=== PATIENT | female | born 1955 | race Hispanic/Latino ===

== ENCOUNTER 2018-09-01 10:22 | Emergency (ER) | payer OTHER, MEDICAID ==
[2018-09-01 10:55] LABS: Absolute Lymphocytes (CBC) 1.7 K/uL (0.7-4.9); Absolute Monocytes 0.6 K/uL (0.1-1.3); Absolute Neutrophil 6.5 K/uL (1.8-8.0); Basophils % 0.5 % (0-1.3); Eosinophils % 0.6 % (0-4.4); Hematocrit 29.7 % (36.0-45.0); Lymphocytes % 18.6 % (15.3-44.8); MCH 29.7 pg (27.0-35.0); MCV 86.9 fL (80-100); MPV 6.5 fL (7.6-11.3); Monocytes % 6.7 % (3.3-12.3); RBC Red Blood Cell Count 3.42 M/uL (3.86-4.86)
[2018-09-01] MEDS ORDERED: NA CHLORIDE 0.9% 500 ML ONE (11:01)
[2018-09-01 11:23] LABS: Potassium 4.5 mmol/L (3.5-5.1)
[2018-09-01] MEDS ORDERED: INSULIN -REGULAR HUMAN 50 UNIT/0.5 ML ML ONE ×2 (12:07→12:09)
--- NOTE | 2018-09-01 13:25 | EKG ---
Test Date: 2018-09-01 Test Time: 10:42:13 Plating Tank Operator: ELSY MEASUREMENT RESULTS: Intervals: Rate: 91 IN: 156 QRSD: 90 QT: 354 QTc: 435 [place]: P: 64 IN: 156 QRS: 44 T: 62 INTERPRETIVE STATEMENTS: Normal sinus rhythm Normal ECG Compared to ECG 06/06/2015 15:11:56 No significant changes Electronically Signed On 09-01-18 13:25:40 CDT by Prosper Toney
--- NOTE | 2018-09-01 13:35 | ER ---
Nurse's Notes [facility] Name: Sola Mahoney Age: 63 yrs Sex: Female : 1955 Arrival Date: 09/01/2018 Time: 10:23 Bed 2 Private MD: Diagnosis: Dehydration;Hyperglycemia, unspecified Presentation: 09/01 10:23 Presenting complaint: EMS states: TROUBLE MANAGING BLOOD SUGAR. Transition of care: bp patient was not received from another setting of care. Onset of symptoms is unknown. Risk Assessment: Do you want to hurt yourself or someone else? Patient reports no desire to harm self or others. Initial Sepsis Screen: Does the patient meet any 2 criteria? No. Patient's initial sepsis screen is negative. Does the patient have a suspected source of infection? No. Patient's initial sepsis screen is negative. Care prior to arrival: IV initiated. 20 GA, in the left hand, Glucose check: 491. 10:23 Method Of Arrival: EMS: [facility] bp 10:23 Acuity: ULICES 3 bp Triage Assessment: 10:27 General: Appears in no apparent distress. comfortable, obese, Behavior is cooperative, bp appropriate for age, anxious. Pain: Denies pain. Historical: - Allergies: 10:27 Demerol; bp 10:27 Benadryl; bp 10:27 Darvocet-N 100; bp - Home Meds: 10:27 Glimepiride Oral [Active]; insulin detemir subcutaneous subcutaneous [Active]; bp pravastatin oral oral [Active]; - PMHx: 10:27 Diabetes - IDDM; High Cholesterol; bp - Immunization history:: Adult Immunizations up to date. - Social history:: Smoking status: Patient/guardian denies using tobacco. - Ebola Screening: : Patient negative for fever greater than or equal to 101.5 degrees Fahrenheit, and additional compatible Ebola Virus Disease symptoms Patient denies exposure to infectious person Patient denies travel to an Ebola-affected area in the 21 days before illness onset No symptoms or risks identified at this time. - Family history:: not pertinent. - Hospitalizations: : No recent hospitalization is reported. Screenin:28 Abuse screen: Denies threats or abuse. Denies injuries from another. Nutritional bp screening: No deficits noted. Tuberculosis screening: No symptoms or risk factors identified. Fall Risk None identified. Assessment: 10:28 General: Appears in no apparent distress. comfortable, obese, Behavior is cooperative, bp appropriate for age, anxious. General: Reports fatigue for >3 days. Pain: Denies pain. Neuro: Level of Consciousness is awake, alert, obeys commands, Oriented to person, place, time, situation, Appropriate for age. Cardiovascular: No deficits noted. Respiratory: Airway is patent Respiratory effort is even, unlabored, Respiratory pattern is regular, symmetrical. GI: No signs and/or symptoms were reported involving the gastrointestinal system. : No signs and/or symptoms were reported regarding the genitourinary system. EENT: No deficits noted. Derm: No deficits noted. Musculoskeletal: Circulation, motion, and sensation intact. Range of motion: intact in all extremities, limited in all extremities. 11:07 Reassessment: IVF INFUSING, PT ASYMPTOMATIC. bp 13:00 Reassessment: PT RESTING QUIETLY, VS STABLE ON MONITOR, PT ABLE TO AMBULATE TO RESTROOM.bp 13:53 Reassessment: PT D/C HOME VIA W/C WITH FAMILY, DX WITH HYPERGLYCEMIA. bp Vital Signs: 10:27 BP 98 / 43; Pulse 95; Resp 16; Temp 98; Pulse Ox 97% ; Weight 86.18 kg; Height 5 ft. 3 bp in. (160.02 cm); 10:41 BP 133 / 68; Pulse 91; Resp 16; Pulse Ox 95% ; bp 11:08 BP 142 / 77; Pulse 87; Resp 16; Pulse Ox 96% ; bp 12:15 BP 129 / 69; Pulse 87; Resp 14; Pulse Ox 97% ; bp 13:15 BP 151 / 88; Pulse 85; Resp 16; Pulse Ox 98% ; bp 10:27 Body Mass Index 33.66 (86.18 kg, 160.02 cm) bp ED Course: 10:23 Patient arrived in ED. bp 10:23 Irineo Trejo MD is Attending Physician. rn 10:24 Triage completed. bp 10:27 Arm band placed on. bp 10:28 Patient has correct armband on for positive identification. Placed in gown. Bed in low bp position. Call light in reach. Side rails up X2. 10:28 Maintain EMS IV. Dressing intact. Good blood return noted. Site clean \T\ dry. Gauge \T\ bp site: 20 GAUGE R AC. 10:32 Jonnie Razo, RN is Primary Nurse. bp 10:45 EKG done, by polysomnography technologist. reviewed by Irineo Trejo MD. at1 13:52 No provider procedures requiring assistance completed. IV discontinued, intact, bp bleeding controlled, No redness/swelling at site. Pressure dressing applied. Administered Medications: 10:45 Drug: NS 0.9% 500 ml Route: IV; Rate: bolus; Site: left hand; bp 13:54 Follow up: IV Status: Completed infusion; IV Intake: 500ml bp 11:45 Drug: Insulin Regular Human 10 units {Co-Signature: ph (Mare Kramer RN).} Route: bp Sub-Q; Site: left upper arm; 13:54 Follow up: Response: Blood sugar is lowered bp Point of Care Testing: Blood Glucose: 10:41 Blood Glucose: 463 mg/dL; bp 12:46 Blood Glucose: 348 mg/dL; bp Ranges: Intake: 13:54 IV: 500ml; Total: 500ml. bp Outcome: 13:34 Discharge ordered by MD. rn 13:53 Discharged to home via wheelchair, with family. bp 13:53 Condition: stable 13:53 Discharge instructions given to patient, Instructed on discharge instructions, follow up and referral plans. Demonstrated understanding of instructions, follow-up care. 13:54 Patient left the ED. bp Signatures: Irineo Trejo MD MD rn Earline Clemons, attorney general EKG Tat1 Jonnie Razo, RN RN bp Mare Kramer RN ph
--- NOTE | 2018-09-01 13:35 | EDPHYS ---
Physician Documentation [facility] Name: Sola Mahoney Age: 63 yrs Sex: Female : 1955 Arrival Date: 09/01/2018 Time: 10:23 Bed 2 Private MD: ED Physician Irineo Trejo HPI: 09/01 10:57 This 63 yrs old Female presents to ER via EMS with complaints of DIABETES rn MANAGEMENT. 10:57 The patient or guardian reports hyperglycemia. Onset: The symptoms/episode rn began/occurred today. Current symptoms: In the emergency department the patient's symptoms have improved. The patient has experienced similar episodes in the past. Reports seen recently a few times for low blood sugar, today home health went by, checked her blood sugar, was high, called 911 for evaluation. Patient denies symptoms other than mild fatigue and lightheaded. NO increased thirst or urination. Reports had just eaten sweet bread and orange juice, otherwise denies chest pain/abd pain/vomiting/diarrhea. Historical: - Allergies: 10:27 Demerol; bp 10:27 Benadryl; bp 10:27 Darvocet-N 100; bp - Home Meds: 10:27 Glimepiride Oral [Active]; insulin detemir subcutaneous subcutaneous [Active]; bp pravastatin oral oral [Active]; - PMHx: 10:27 Diabetes - IDDM; High Cholesterol; bp - Immunization history:: Adult Immunizations up to date. - Social history:: Smoking status: Patient/guardian denies using tobacco. - Ebola Screening: : Patient negative for fever greater than or equal to 101.5 degrees Fahrenheit, and additional compatible Ebola Virus Disease symptoms Patient denies exposure to infectious person Patient denies travel to an Ebola-affected area in the 21 days before illness onset No symptoms or risks identified at this time. - Family history:: not pertinent. - Hospitalizations: : No recent hospitalization is reported. ROS: 10:57 Constitutional: Negative for fever, chills, and weight loss, Eyes: Negative for injury, rn pain, redness, and discharge, Neck: Negative for injury, pain, and swelling, Cardiovascular: Negative for chest pain, palpitations, and edema, Respiratory: Negative for shortness of breath, cough, wheezing, and pleuritic chest pain, Abdomen/GI: Negative for abdominal pain, nausea, vomiting, diarrhea, and constipation, MS/Extremity: Negative for injury and deformity, Skin: Negative for injury, rash, and discoloration, Neuro: Negative for headache, numbness, tingling, and seizure. Exam: 10:57 Constitutional: This is a well developed, well nourished patient who is awake, alert, rn and in no acute distress. Head/Face: Normocephalic, atraumatic. Eyes: Pupils equal round and reactive to light, extra-ocular motions intact. Lids and lashes normal. Conjunctiva and sclera are non-icteric and not injected. Cornea within normal limits. Periorbital areas with no swelling, redness, or edema. ENT: MMM Cardiovascular: Regular rate and rhythm with a normal S1 and S2. No gallops, murmurs, or rubs. Normal PMI, no JVD. No pulse deficits. Respiratory: Lungs have equal breath sounds bilaterally, clear to auscultation and percussion. No rales, rhonchi or wheezes noted. No increased work of breathing, no retractions or nasal flaring. Abdomen/GI: Soft, non-tender, with normal bowel sounds. No distension or tympany. No guarding or rebound. No evidence of tenderness throughout. MS/ Extremity: Pulses equal, no cyanosis. Neurovascular intact. Full, normal range of motion. Equal circumference. Neuro: Awake and alert, GCS 15, oriented to person, place, time, and situation. Cranial nerves II-XII grossly intact. Motor strength 5/5 in all extremities. Sensory grossly intact. Vital Signs: 10:27 BP 98 / 43; Pulse 95; Resp 16; Temp 98; Pulse Ox 97% ; Weight 86.18 kg; Height 5 ft. 3 bp in. (160.02 cm); 10:41 BP 133 / 68; Pulse 91; Resp 16; Pulse Ox 95% ; bp 11:08 BP 142 / 77; Pulse 87; Resp 16; Pulse Ox 96% ; bp 12:15 BP 129 / 69; Pulse 87; Resp 14; Pulse Ox 97% ; bp 13:15 BP 151 / 88; Pulse 85; Resp 16; Pulse Ox 98% ; bp 10:27 Body Mass Index 33.66 (86.18 kg, 160.02 cm) bp MDM: 10:23 Patient medically screened. rn 13:32 Differential diagnosis: hyperglycemia. Data reviewed: vital signs, nurses notes, pathology lab technician test result(s), and as a result, I will discharge patient. Counseling: I had a detailed discussion with the patient and/or guardian regarding: the historical points, exam findings, and any diagnostic results supporting the discharge/admit diagnosis, lab results, the need for outpatient follow up, to return to the emergency department if symptoms worsen or persist or if there are any questions or concerns that arise at home. Response to treatment: the patient's symptoms have markedly improved after treatment, and as a result, I will discharge patient. Special discussion: I discussed with the patient/guardian in detail that at this point there is no indication for admission to the hospital. It is understood, however, that if the symptoms persist or worsen the patient needs to return immediately for re-evaluation. ED course: Pt with hyperglycemia, no complications, no acidosis, mild dehydration, symptoms improved with fluids, will dc home with continuation of insulin and better eating habits. Was eating sweet bread and orange juice prior to arrival today, and when talking about discharge, states is planning on eating tamales all day long. . 09/01 10:26 Order name: CBC with Diff; Complete Time: 11:32 rn 09/01 10:26 Order name: Basic Metabolic Panel; Complete Time: 11:32 rn 09/01 10:26 Order name: EKG; Complete Time: 10:27 rn 09/01 10:41 Order name: Glucose; Complete Time: 11:32 bp 09/01 10:26 Order name: IV Start; Complete Time: 10:34 rn 09/01 10:26 Order name: Glucose Level; Complete Time: 11:04 rn 09/01 10:26 Order name: EKG - Nurse/Tech; Complete Time: 10:41 rn Administered Medications: 10:45 Drug: NS 0.9% 500 ml Route: IV; Rate: bolus; Site: left hand; bp 13:54 Follow up: IV Status: Completed infusion; IV Intake: 500ml bp 11:45 Drug: Insulin Regular Human 10 units {Co-Signature: ph (Mare Kramer RN).} Route: bp Sub-Q; Site: left upper arm; 13:54 Follow up: Response: Blood sugar is lowered bp Point of Care Testing: Blood Glucose: 10:41 Blood Glucose: 463 mg/dL; bp 12:46 Blood Glucose: 348 mg/dL; bp Ranges: Critical Glucose Levels:Adult <50 mg/dl or >400 mg/dl <40 mg/dl or >180 mg/dl Disposition: 09/01/18 13:34 Discharged to Home. Impression: Dehydration, Hyperglycemia, unspecified. - Condition is Stable. - Discharge Instructions: Dehydration, Adult, Hyperglycemia, Blood Glucose Monitoring, Adult. - Medication Reconciliation Form, Thank You Letter, Antibiotic Education, Prescription Opioid Use form. - Follow up: Private Physician; When: As needed; Reason: Recheck today's complaints, Re-evaluation by your physician. - Problem is new. - Symptoms have improved. Signatures: Dispatcher [employer] EDMS Irineo Trejo MD MD rn Peltier, Brian, RN RN bp Mare Kramer RN ph Corrections: (The following items were deleted from the chart) 13:54 13:34 09/01/2018 13:34 Discharged to Home. Impression: Dehydration; Hyperglycemia, bp unspecified. Condition is Stable. Forms are Medication Reconciliation Form, Thank You Letter, Antibiotic Education, Prescription Opioid Use. Follow up: Private Physician; When: As needed; Reason: Recheck today's complaints, Re-evaluation by your physician. Problem is new. Symptoms have improved. rn
[2018-09-01 14:00] VITALS: TEMP 98
[2018-09-01 14:05] VITALS: BP 151/88; O2SAT 98
== END 2018-09-01 13:54 | disposition home or self-care (01) ==
LOC: ER 10:22
DX: E11.65 Type 2 diabetes mellitus with hyperglycemia (principal); E78.00 Pure hypercholesterolemia, unspecified; Z79.4 Long term (current) use of insulin; Z88.5 Allergy status to narcotic agent; Z88.8 Allergy status to other drugs, medicaments and biological substances
CPT/HCPCS: 36415; 80048; 82947; 82962; 85025; 93005; 96360; 96361; 96372; 99284

== ENCOUNTER 2023-02-11 07:46 | Inpatient (IN) | payer OTHER ==
--- OUTSIDE RECORDS SUMMARY | 2023-02-14 11:02 | XMS REPORT | Continuity of Care Document ---
:1955 Author Organization [facility] t Address [address] [facility]. [address] [place] [address] Care Team Providers Name Role Phone Rossana Pierre MD Primary Care Physician Doctor Unassigned, [place] Attending Clinician Unavailable Rossana Pierre MD Attending Clinician Ana Laura Correa Attending Clinician TOMMIE BARNES Attending Clinician Unavailable ROSSANA PIERRE Attending Clinician Unavailable Melba Hui MA Attending Clinician Unavailable ALBERTO AG Attending Clinician Unavailable SHAWNEE GEORGE Attending Clinician Unavailable ROHIT GRAHAM Attending Clinician Unavailable ANA LAURA WARNER Attending Clinician Unavailable YANELIS BRUNSON Attending Clinician Unavailable Yanelis Brunson MD Attending Clinician Samantha Ruiz Attending Clinician PO MCDUFFIE Attending Clinician Unavailable Payers Payer Name Policy Type Policy Number Effective Date Expiration Date S angeli MEDICARE PART A [id number] 1995 \\T\\ B 00:00:00 [facility] [id number] 2015 00:00:00 Problems Condition Condition Condition Status Onset Resolution Last Treating Co mments Source Name Details Category Date Date Treatment Clinician Date Diabetes Diabetes Disease Active Unive rs 05-02 ity of 00:00: [place] [id number] Medical Branch Essential Essential Disease Active Uni vers hypertensi hypertensi 05-02 it y of on on 00:00: [place] 00 Medical Branch Hyperlipid Hyperlipid Disease Active U nivers emia emia 05-02 ity of 00:00: [place] 00 Medical Branch Psychiatri Psychiatri Disease Active U nivers c disorder c disorder it y of [place] [facility] Allergies, Adverse Reactions, Alerts Allergy Allergy Status Severity Reaction(s) Onset Inactive Treating Comm ents Source Name Type Date Date Clinician DIVALPRO DRUG Active Diarrhea 2017-10 Univer s EX INGREDI 0-10 ity of SODIUM 00:00: [place] 00 Medical Branch Divalpro Propensi Active Diarrhea 2017-10 Univ ers ex ty to 0-10 ity of Sodium adverse 00:00: [place] reaction 00 Medical s Branch METFORMI DRUG Active Other-Cmnt Univ ers N INGREDI 6-15 ity of 00:00: [place] 00 Medical Branch Metformi Propensi Active Other - See U nivers n ty to comments 6-15 ity of adverse 00:00: [place] reaction 00 Medical s Branch BENADRYL DRUG Active Unknown-Cmnt Un guille ALLERGY 6-13 ity of DECONGES 00:00: [place] TANT 00 Medical Branch CODEINE DRUG Active Unknown-Cmnt Uni vers INGREDI 6-13 ity of 00:00: [place] 00 Medical Branch PROPOXYP DRUG Active Unknown-Cmnt Un gi[place] HENE HCL INGREDI 6-13 ity of 00:00: [place] 00 Medical Branch Benadryl Propensi Active Unknown - Uni vers Allergy ty to See comments 6-13 ity of Deconges adverse 00:00: [place] tant reaction 00 Medical s Branch Codeine Propensi Active Unknown - Univ ers ty to See comments 6-13 ity of adverse 00:00: [place] reaction 00 Medical s Branch Propoxyp Propensi Active Unknown - Uni vers hene Hcl ty to See comments 6-13 it y of adverse 00:00: [place] reaction 00 Medical s Branch Social History Social Habit Start Date Stop Date Quantity Comments Source Alcohol intake 2020-12-09 2020-12-09 Current University of 00:00:00 00:00:00 non-drinker of [facility] alcohol (finding) Branch Tobacco use and 2018-04-12 2018-04-12 Smokeless tobacco Un iversity of exposure 00:00:00 00:00:00 non-user [facility] Sex Ass[birth year] At [birth year] Universit y of 00:00:00 00:00:00 [facility] Smoking Status Start Date Stop Date Source Never smoked tobacco [facility] Medications Ordered Filled Start Stop Current Ordering Indication Dosage Frequency Signature Comments Components Source Medication Medication Date Date Medication? Clinician (SIG) Name Name BD LILIANA Yes USE Univ ers GEN PEN 8-23 DIRECTED ity of NEEDLE 32 00:00: FOUR [place] gauge x 00 DAILY Medical 5/32" Ndle Branch BD LILIANA Yes USE Univ ers GEN PEN 8-23 DIRECTED ity of NEEDLE 32 00:00: [place] gauge x 00 DAILY Medical 5/32" Ndle Branch BD LILIANA Yes USE Univ ers GEN PEN 8-23 DIRECTED ity of NEEDLE 32 00:00: [place] gauge x 00 DAILY Medical 5/" Nd Branch pravastatin Yes [id number] 40mg Take 1 Univers 40 mg 8-02 tablet by ity of tablet 00:00: mouth at [address] [facility] pravastatin 0 Yes [id number] 40mg TAKE 1 Univers 40 mg 8-02 TABLET BY ity of tablet 00:00: MOUTH AT [place] [facility] pravastatin 0 Yes [id number] 40mg TAKE 1 Univers 40 mg 8-02 TABLET BY ity of tablet 00:00: MOUTH AT [place] [facility] pravastatin 0 Yes [id number] 40mg TAKE 1 Univers 40 mg 8-02 TABLET BY ity of tablet 00:00: MOUTH AT [facility] pravastatin 0 Yes [id number] 40mg TAKE 1 Univers 40 mg 8-02 TABLET BY ity of tablet 00:00: MOUTH AT [place] [facility] pravastatin 0 Yes [id number] 40mg TAKE 1 Univers 40 mg 8-02 TABLET BY ity of tablet 00:00: MOUTH AT [place] [facility] pravastatin 0 2021- No [id number] 40mg Take 1 Univers 40 mg 8-02 08-02 tablet by ity of tablet 00:00: 00:00 mouth at [place] 00 :00 bedtime. Medical Branch Insulin Yes [id number] Take 25 Un guille Detemir 5-28 units AM ity of (LEVEMIR 00:00: and 15 [place] FLEXTOUCH 00 units Medical U-100 evening Branch INSULN) 100 unit/mL (3 mL) injection Insulin Yes [id number] Take 25 [place] Detemir 5-28 units AM ity of (LEVEMIR 00:00: and 15 [place] FLEXTOUCH 00 units Medical U-100 evening Branch INSULN) 100 unit/mL (3 mL) injection Insulin Yes [id number] Take 25 Un guille Detemir 5-28 units AM ity of (LEVEMIR 00:00: and 15 [place] FLEXTOUCH 00 units Medical U-100 evening Branch INSULN) 100 unit/mL (3 mL) injection Insulin Yes [id number] Take 25 [place] Detemir 5-28 units AM ity of (LEVEMIR 00:00: and 15 [place] FLEXTOUCH 00 units Medical U-100 evening Branch INSULN) 100 unit/mL (3 mL) injection Insulin Yes [id number] Take 25 Un guille Detemir 5-28 units AM ity of (LEVEMIR 00:00: and 15 [place] FLEXTOUCH 00 units Medical U-100 evening Branch INSULN) 100 unit/mL (3 mL) injection Insulin Yes [id number] Take 25 [place] Detemir 5-28 units AM ity of (LEVEMIR 00:00: and 15 [place] FLEXTOUCH 00 units Medical U-100 evening Branch INSULN) 100 unit/mL (3 mL) injection Insulin Yes [id number] Take 25 Un guille Detemir 5-28 units AM ity of (LEVEMIR 00:00: and 15 [place] FLEXTOUCH 00 units Medical U-100 evening Branch INSULN) 100 unit/mL (3 mL) injection Insulin Yes USE Univers [place], 5-13 DIRECTED ity of Disposable, 00:00: FOUR TIMES [place] (LILIANA PEN 00 DAILY Medical NEEDLE) 32 Branch gauge x 5/32" Ndle Insulin Yes USE Univers [place], 5-13 DIRECTED ity of Disposable, 00:00: FOUR TIMES [place] (LILIANA PEN 00 DAILY Medical NEEDLE) 32 Branch gauge x 5/32" Ndle Insulin 0 Yes USE Univers [place], 03-12 DIRECTED ity of Disposable, 00:00: FOUR TIMES [place] (LILIANA PEN 00 DAILY Medical NEEDLE) 32 Branch gauge x 5/32" Ndle Insulin 0 Yes USE Univers [place], 03-12 DIRECTED ity of Disposable, 00:00: FOUR TIMES [place] (LILIANA PEN DAILY Medical NEEDLE) 32 Branch gauge x 5/32" Ndle Insulin 0 2021- No USE Univers [place], 03-12 DIRECTED ity of Disposable, 00:00: 00:00 FOUR TIMES [place] (LILIANA PEN 00 :00 DAILY Medical NEEDLE) 32 Branch gauge x 5/32" Ndle lisinopriL Yes [id number] 2.5mg Take 1 Univers 2.5 mg 5-12 tablet by ity of tablet 00:00: mouth [place] 00 daily. Medical Branch lisinopriL Yes [id number] 2.5mg Take 1 Univers 2.5 mg 5-12 tablet by ity of tablet 00:00: mouth [place] 00 daily. Medical Branch lisinopriL Yes [id number] 2.5mg Take 1 Univers 2.5 mg 5-12 tablet by ity of tablet 00:00: mouth [place] 00 daily. [facility] Branch lisinopriL Yes [id number] 2.5mg Take 1 Univers 2.5 mg 5-12 tablet by ity of tablet 00:00: mouth [place] 00 daily. Medical Branch lisinopriL Yes [id number] 2.5mg Take 1 Univers 2.5 mg 5-12 tablet by ity of tablet 00:00: mouth [place] 00 daily. Medical Branch lisinopriL 0 Yes [id number] 2.5mg Take 1 Univers 2.5 mg 5-12 tablet by ity of tablet 00:00: mouth [place] 00 daily. [facility] Branch lisinopriL Yes [id number] 2.5mg Take 1 Univers 2.5 mg 5-12 tablet by ity of tablet 00:00: mouth [place] 00 daily. [facility] Branch MICRO THIN Yes TEST EVERY U nivers LANCETS 33 4-19 MORNING ity of gauge Misc 00:00: [place] 00 Medical Branch TRUE METRIX 202-0 Yes USE Univ ers GLUCOSE 4-19 DIRECTED ity of TEST STRIP 00:00: EVERY [place] strip 00 MORNING Medical Branch MICRO THIN 1-0 Yes TEST EVERY U nivers LANCETS 33 4-19 MORNING ity of gauge Misc 00:00: [place] 00 Medical Branch TRUE METRIX 202-0 Yes USE Univ ers GLUCOSE 4-19 DIRECTED ity of TEST STRIP 00:00: EVERY [place] strip 00 MORNING Medical Branch MICRO THIN 1-0 Yes TEST EVERY U nivers LANCETS 33 4-19 MORNING ity of gauge Misc 00:00: [place] 00 Medical Branch TRUE METRIX 2020-0 Yes USE Univ ers GLUCOSE 4-19 DIRECTED ity of TEST STRIP 00:00: EVERY [place] strip 00 MORNING Medical Branch MICRO THIN 1-0 Yes TEST EVERY U nivers LANCETS 33 4-19 MORNING ity of gauge Misc 00:00: [place] 00 Medical Branch TRUE METRIX 2020-0 Yes USE Univ ers GLUCOSE 4-19 DIRECTED ity of TEST STRIP 00:00: EVERY [place] strip 00 MORNING Medical Branch MICRO THIN 2020-0 Yes TEST EVERY U nivers LANCETS 33 4-19 MORNING ity of gauge Misc 00:00: [place] 00 Medical Branch TRUE METRIX 2020-0 Yes USE Univ ers GLUCOSE 4-19 DIRECTED ity of TEST STRIP 00:00: EVERY [place] strip 00 MORNING Medical Branch MICRO THIN 2020-0 Yes TEST EVERY U nivers LANCETS 33 4-19 MORNING ity of gauge Misc 00:00: [place] 00 Medical Branch TRUE METRIX 2020-0 Yes USE Univ ers GLUCOSE 4-19 DIRECTED ity of TEST STRIP 00:00: EVERY [place] strip 00 MORNING Medical Branch MICRO THIN 2020-0 Yes TEST EVERY U nivers LANCETS 33 4-19 MORNING ity of gauge Misc 00:00: [place] 00 Medical Branch TRUE METRIX 2020-0 Yes USE Univ ers GLUCOSE 4-19 DIRECTED ity of TEST STRIP 00:00: EVERY [place] strip 00 MORNING Medical Branch PRAVASTATIN 1-0 Yes [id number] TAKE 1 Univers 40 mg 1-28 TABLET BY ity of tablet 00:00: MOUTH AT [place] 00 BEDTIME Medical Branch PRAVASTATIN 2020-0 2- No [id number] TAKE 1 Univers 40 mg 1-28 08-02 TABLET BY ity of tablet 00:00: 00:00 MOUTH AT [place] 00 :00 BEDTIME Medical Branch paliperidon 2018-10 Yes 273mg 273 mg by Univers e palm, 2-23 Intramuscu ity of 3-month, 18:18: lar route [place] (INVEGA 04 every 3 Medical TRINZA) 273 (three) Branc h mg/0.875 mL months. injection syringe paliperidon 2018-10 Yes 273mg 273 mg by Univers e palm, 2-23 Intramuscu ity of 3-month, 12:18: [place] route [place] (INVEGA 04 every 3 Medical TRINZA) 273 (three) Branc h mg/0.875 mL months. injection syringe paliperidon 2018-10 Yes 273mg 273 mg by Univers e palm, 2-23 Intramuscu ity of 3-month, 12:18: lar route [place] (INVEGA 04 every 3 Medical TRINZA) 273 (three) Branc h mg/0.875 mL months. injection syringe paliperidon 2018-10 Yes 273mg 273 mg by Univers e palm, 2-23 Intramuscu ity of 3-month, 12:18: lar route [place] (INVEGA 04 every 3 Medical TRINZA) 273 (three) Branc h mg/0.875 mL months. injection syringe paliperidon 2018-10 Yes 273mg 273 mg by Univers e palm, 2-23 Intramuscu ity of 3-month, 12:18: lar route [place] (INVEGA 04 every 3 Medical TRINZA) 273 (three) Branc h mg/0.875 mL months. injection syringe paliperidon 2018-10 Yes 273mg 273 mg by Univers e palm, 2-23 Intramuscu ity of 3-month, 12:18: lar route [place] (INVEGA 04 every 3 Medical TRINZA) 273 (three) Branc h mg/0.875 mL months. injection syringe paliperidon 2018-10 Yes 273mg 273 mg by Univers e palm, 2-23 Intramuscu ity of 3-month, 12:18: lar route [place] (INVEGA 04 every 3 Medical TRINZA) 273 (three) Branc h mg/0.875 mL months. injection syringe Blood-Gluco 2019-0 Yes Use as Univ ers se Meter 9-06 directed ity of (BLOOD 00:00: to check [place] GLUCOSE 00 blood Medical MONITORING) sugar Branch Kit DX:E11.9, please give what insurance prefers Blood-Gluco 2019-0 Yes Use as Univ ers se Meter 906 directed ity of (BLOOD 00:00: to check [place] GLUCOSE 00 blood Medical MONITORING) sugar Branch Kit DX:E11.9, please give what insurance prefers Blood-Gluco 2019-0 Yes Use as Univ ers se Meter 906 directed ity of (BLOOD 00:00: to check [place] GLUCOSE 00 blood Medical MONITORING) sugar Branch Kit DX:E11.9, please give what insurance prefers Blood-Gluco 2019-0 Yes Use as Univ ers se Meter 9-06 directed ity of (BLOOD 00:00: to check [place] GLUCOSE 00 blood Medical MONITORING) sugar Branch Kit DX:E11.9, please give what insurance prefers Blood-Gluco 2019-0 Yes Use as Univ ers se Meter 906 directed ity of (BLOOD 00:00: to check [place] GLUCOSE 00 blood Medical MONITORING) sugar Branch Kit DX:E11.9, please give what insurance prefers Blood-Gluco 2019-0 Yes Use as Univ ers se Meter 9-06 directed ity of (BLOOD 00:00: to check [place] GLUCOSE 00 blood Medical MONITORING) sugar Branch Kit DX:E11.9, please give what insurance prefers Blood-Gluco 2019-0 Yes Use as Univ ers se Meter 9-06 directed ity of (BLOOD 00:00: to check [place] GLUCOSE 00 blood Medical MONITORING) sugar Branch Kit DX:E11.9, please give what insurance prefers Lancets 2019-0 Yes [id number] Check Univ ers (LANCETS, 5-21 blood ity of SUPER THIN) 00:00: glucose [place] Misc 00 TID and Medical PRN when Branch symptomati c. Lancets 2019-0 Yes [id number] Check Univ ers (LANCETS, 5-21 blood ity of SUPER THIN) 00:00: glucose [place] Misc 00 TID and Medical PRN when Branch symptomati c. Lancets 2019-0 Yes [id number] Check Univ ers (LANCETS, 5-21 blood ity of SUPER THIN) 00:00: glucose [place] Misc 00 TID and Medical PRN when Branch symptomati c. Lancets 2019-0 Yes [id number] Check Univ ers (LANCETS, 5-21 blood ity of SUPER THIN) 00:00: glucose [place] Misc 00 TID and Medical PRN when Branch symptomati c. Lancets 2019-0 Yes [id number] Check Univ ers (LANCETS, 5-21 blood ity of SUPER THIN) 00:00: glucose [place] Misc 00 TID and Medical PRN when Branch symptomati c. Lancets 2019-0 Yes [id number] Check Univ ers (LANCETS, 5-21 blood ity of SUPER THIN) 00:00: glucose [place] Misc 00 TID and Medical PRN when Branch symptomati c. Lancets 2019-0 Yes [id number] Check Univ ers (LANCETS, 5-21 blood ity of SUPER THIN) 00:00: glucose [place] Misc 00 TID and Medical PRN when Branch symptomati c. Immunizations Ordered Filled Immunization Date Status Comments Sour e Immunization Name Name SARS-COV-2 COVID-19 2021-03-05 Completed Unive rsity of MODERNA VACCINE 00:00:00 [facility] [place] ical Branch SARS-COV-2 COVID-19 2021-03-05 Completed Unive rsity of MODERNA VACCINE 00:00:00 [facility] [place] ical Branch SARS-COV-2 COVID-19 2021-03-05 Completed Unive rsity of MODERNA VACCINE 00:00:00 [facility] [place] ical Branch SARS-COV-2 COVID-19 2021-03-05 Completed Unive rsity of MODERNA VACCINE 00:00:00 [facility] [place] ical Branch SARS-COV-2 COVID-19 2021-03-05 Completed Unive rsity of MODERNA 12+ YRS 00:00:00 [facility] [place] ical VACCINE Branch SARS-COV-2 COVID-19 2021-03-05 Completed Unive rsity of MODERNA 12+ YRS 00:00:00 [facility] [place] ical VACCINE Branch SARS-COV-2 COVID-19 2021-03-05 Completed Unive rsity of MODERNA VACCINE 00:00:00 [facility] [place] ical Branch SARS-COV-2 COVID-19 2021-02-05 Completed Unive rsity of MODERNA VACCINE 00:00:00 [facility] [place] ical Branch SARS-COV-2 COVID-19 2021-02-05 Completed Unive rsity of MODERNA VACCINE 00:00:00 [place] Med ical Branch SARS-COV-2 COVID-19 2021-02-05 Completed Unive rsity of MODERNA VACCINE 00:00:00 [place] Med ical Branch SARS-COV-2 COVID-19 2021-02-05 Completed Unive rsity of MODERNA VACCINE 00:00:00 [place] Med ical Branch SARS-COV-2 COVID-19 2021-02-05 Completed Unive rsity of MODERNA 12+ YRS 00:00:00 [place] Med ical VACCINE Branch SARS-COV-2 COVID-19 2021-02-05 Completed Unive rsity of MODERNA 12+ YRS 00:00:00 [place] Med ical VACCINE Branch SARS-COV-2 COVID-19 2021-02-05 Completed Unive rsity of MODERNA VACCINE 00:00:00 [facility] [place] ical Branch Pneumococcal 2020-07-11 Completed University o f Polysaccharide, 00:00:00 [place] Med ical PPSV23 (PNEUMOVAX) Branch Influenza High Dose 2020-07-11 Completed Unive rsity of 00:00:00 [facility] Pneumococcal 2020-07-11 Completed University o f Polysaccharide, 00:00:00 [place] Med ical PPSV23 (PNEUMOVAX) Branch Influenza High Dose 2020-07-11 Completed Unive rsity of 00:00:00 [facility] Pneumococcal 2020-07-11 Completed University o f Polysaccharide, 00:00:00 [place] Med ical PPSV23 (PNEUMOVAX) Branch Influenza High Dose 2020-07-11 Completed Unive rsity of 00:00:00 [facility] Pneumococcal 2020-07-11 Completed University o f Polysaccharide, 00:00:00 [place] Med ical PPSV23 (PNEUMOVAX) Branch Influenza High Dose 2020-07-11 Completed Unive rsity of 00:00:00 [facility] Pneumococcal 2020-07-11 Completed University o f Polysaccharide, 00:00:00 [place] Med ical PPSV23 (PNEUMOVAX) Branch Influenza High Dose 2020-07-11 Completed Unive rsity of 00:00:00 [facility] Pneumococcal 2020-07-11 Completed University o f Polysaccharide, 00:00:00 [place] Med ical PPSV23 (PNEUMOVAX) Branch Influenza High Dose 2020-07-11 Completed Unive rsity of 00:00:00 [facility] Pneumococcal 2020-07-11 Completed University o f Polysaccharide, 00:00:00 [place] Med ical PPSV23 (PNEUMOVAX) Branch Influenza High Dose 2020-07-11 Completed Unive rsity of 00:00:00 [facility] Influenza High Dose 2019-08-14 Completed Unive rsity of 00:00:00 [facility] Influenza High Dose 2019-08-14 Completed Unive rsity of 00:00:00 [facility] Influenza High Dose 2019-08-14 Completed Unive rsity of 00:00:00 [facility] Influenza High Dose 2019-08-14 Completed Unive rsity of 00:00:00 [facility] Influenza High Dose 2019-08-14 Completed Unive rsity of 00:00:00 [facility] Influenza High Dose 2019-08-14 Completed Unive rsity of 00:00:00 [facility] Influenza High Dose 2019-08-14 Completed Unive rsity of 00:00:00 [facility] Influenza Virus 2018-07-31 Completed Universit y of Vaccine (3+ yrs) 00:00:00 [facility] Influenza Virus 2018-07-31 Completed Universit y of Vaccine (3+ yrs) 00:00:00 [facility] Influenza Virus 2018-07-31 Completed Universit y of Vaccine (3+ yrs) 00:00:00 [facility] Influenza Virus 2018-07-31 Completed Universit y of Vaccine (3+ yrs) 00:00:00 [facility] Influenza Virus 2018-07-31 Completed Universit y of Vaccine (3+ yrs) 00:00:00 [facility] Influenza Virus 2018-07-31 Completed Universit y of Vaccine (3+ yrs) 00:00:00 [facility] Influenza Virus 2018-07-31 Completed Universit y of Vaccine (3+ yrs) 00:00:00 [facility] Pneumococcal 2015-01-29 Completed University o f Polysaccharide, 00:00:00 [place] Med ical PPSV23 (PNEUMOVAX) Branch Pneumococcal 2015-01-29 Completed University o f Polysaccharide, 00:00:00 [place] Med ical PPSV23 (PNEUMOVAX) Branch Pneumococcal 2015-01-29 Completed University o f Polysaccharide, 00:00:00 [place] Med ical PPSV23 (PNEUMOVAX) Branch Pneumococcal 2015-01-29 Completed University o f Polysaccharide, 00:00:00 [place] Med ical PPSV23 (PNEUMOVAX) Branch Pneumococcal 2015-01-29 Completed University o f Polysaccharide, 00:00:00 [place] Med ical PPSV23 (PNEUMOVAX) Branch Pneumococcal 2015-01-29 Completed University o f Polysaccharide, 00:00:00 [place] Med ical PPSV23 (PNEUMOVAX) Branch Pneumococcal 2015-01-29 Completed University o f Polysaccharide, 00:00:00 [place] Med ical PPSV23 (PNEUMOVAX) Branch Pneumococcal 13 2014-09-18 Completed Universit y of Conjugate, PCV13 00:00:00 [place] Me dical (Prevnar 13) Branch Pneumococcal 13 2014-09-18 Completed Universit y of Conjugate, PCV13 00:00:00 [place] Me dical (Prevnar 13) Branch Pneumococcal 13 2014-09-18 Completed Universit y of Conjugate, PCV13 00:00:00 [place] Fl dical (Prevnar 13) Branch Pneumococcal 13 2014-09-18 Completed Universit y of Conjugate, PCV13 00:00:00 [place] Me dical (Prevnar 13) Branch Pneumococcal 13 2014-09-18 Completed Universit y of Conjugate, PCV13 00:00:00 [place] Me dical (Prevnar 13) Branch Pneumococcal 13 2014-09-18 Completed Universit y of Conjugate, PCV13 00:00:00 [place] Me dical (Prevnar 13) Branch Pneumococcal 13 2014-09-18 Completed Universit y of Conjugate, PCV13 00:00:00 [facility] dical (Prevnar 13) Branch Procedures Procedure Date / Time Performed Performing Clinician [facility] e REFERRAL- 2022-08-04 05:01:00 Doctor Unassigned, No Univer sity of [place] REQUEST/RESPONSE Name Medical Branch REFERRAL- 2022-06-25 05:01:00 Doctor Unassigned, No Univer sity [facility] REQUEST/RESPONSE Name Medical Branch Encounters Start End Encounter Admission Attending Care Care Encounter Source Date/Time Date/Time Type Type Clinicians Facility Department ID 2021-08-29 Emergency [facility] [id number] Univers 22:33:09 ity of [facility] 2023-01-11 2023-01-11 Outpatient [facility] [id number] Mario 09:42:19 09:42:19 [id number] F [place] 2022-11-25 2022-11-25 Outpatient [facility] [id number] Mario 10:17:25 10:17:25 [id number] F [place] 2022-08-17 2022-08-17 Outpatient [facility] [id number] Mario 13:14:52 13:14:52 [id number] F [place] 2022-08-05 2022-08-05 Outpatient [facility] [id number] Mario 08:32:26 08:32:26 1006 F [place] 2022-08-04 2022-08-04 Orders Doctor [facility] [id number] Univers 00:00:00 00:00:00 Only Unassigned, TISH [id number] ity of [place] [facility] [id number] [place] as [id number] [address] 2022-06-25 2022-06-25 Orders Doctor [facility] [id number] Univers 00:00:00 00:00:00 Only Unassigned, TISH [id number] ity of [place] [facility] [id number] [place] as [phone] [address] 2022-06-21 2022-06-21 [facility] [id number] Univers 00:00:00 00:00:00 [place] [facility] [id number] it y of [place] [id number] Frankie as RADHA?BLEA [id number] [address] MEDICAL OFFICE [facility] 2022-06-01 2022-06-01 [facility] [id number] Univers 00:00:00 00:00:00 [place] HEALTH [id number] it y of [place] [id number] [place]ie as RADHA?BLEA [phone] [address] MEDICAL OFFICE [facility] 2022-06-01 2022-06-01 [facility] [id number] Univers 00:00:00 00:00:00 [place] HEALTH [id number] it y of [place] [id number] Frankie as RADHA?BLEA [id number] [address] MEDICAL OFFICE [facility] 2022-05-31 2022-05-31 [facility] [id number] Univers 00:00:00 00:00:00 [facility] [id number] it y of [place] [id number] [place] as RADHA?BLEA [id number] [address] OFFICE [facility] 2021-08-17 2021-08-17 Outpatient R TOMMIE BARNES [facility] [id number] Univers 09:00:00 09:00:00 [facility] 2021-08-13 2021-08-13 Outpatient R MOLLY TOMMIE [facility] [id number] Univers 14:00:00 14:00:00 [facility] 2021-07-03 2021-07-03 Outpatient Duncan PIERRE [facility] [id number] Univers 10:15:00 10:15:00 ROSSANA [facility] 2021-06-30 2021-06-30 Jaden Marco Huitashia [id number] Univers 00:00:00 00:00:00 Management Melba Jhaveri [id number] ity [place] [id number] [place] [phone] [address] 2021-06-25 2021-06-25 Outpatient Duncan AG [facility] [id number] Univers 10:00:00 10:00:00 ALBERTO [facility] 2021-04-09 2021-04-09 Outpatient Duncan PIERRE [facility] [id number] Univers 10:00:00 10:00:00 ROSSANA [facility] 2021-04-02 2021-04-02 Outpatient Duncan PIERRE [facility] [id number] Univers 10:15:00 10:15:00 ROSSANA [facility] 2021-03-19 2021-03-19 [facility] [id number] Univers 10:15:00 10:15:00 ROSSANA [facility] 2021-03-12 2021-03-12 Outpatient Duncan [facility] [id number] Univers 09:15:00 09:15:00 ROSSANA [facility] 2021-03-04 2021-03-04 Outpatient Duncan [facility] [id number] Univers 11:00:00 11:00:00 ROSSANA [facility] 2021-02-27 2021-02-27 Outpatient Duncan GEORGE [facility] [id number] Univers 11:30:00 11:30:00 SHAWNEE [facility] 2021-02-04 2021-02-04 Outpatient Duncan [facility] [id number] Univers 11:00:00 11:00:00 ROSSANA [facility] 2021-01-07 2021-01-07 Outpatient Duncan [facility] [id number] Univers 10:30:00 10:30:00 ROSSANA [facility] 2020-12-22 2020-12-22 Outpatient Duncan GRAHAM [facility] [id number] Univers 10:00:00 10:00:00 ROHTI [facility] 2020-12-19 2020-12-19 Outpatient R [facility] [id number] Univers 08:00:00 08:00:00 [facility] 2020-12-16 2020-12-16 Outpatient Duncan [facility] [id number] Univers 09:00:00 09:00:00 ROSSANA [facility] 2020-12-12 2020-12-12 Outpatient Duncan [facility] [id number] Univers 11:00:00 11:00:00 SHAWNEE [facility] 2020-12-10 2020-12-10 Outpatient Duncan [facility]RE [facility] [id number] Univers 15:30:00 15:30:00 ROSSANA [facility] 2020-12-09 2020-12-09 Outpatient R [facility] [id number] Univers 08:00:00 08:00:00 [facility] 2020-10-09 2020-10-09 Outpatient R TIMMY [facility] [id number] Univers 11:30:00 11:30:00 ANA LAURA hubbard [facility] 2020-09-17 2020-09-17 Outpatient R [facility] [id number] Univers 10:00:00 10:00:00 itpayton [facility] 2020-09-09 2020-09-09 Outpatient R IGNACIO [facility] [id number] Univers 10:30:00 10:30:00 ROSSANA hubbard [facility] 2020-07-15 2020-07-15 Outpatient R IGNACIO [facility] [id number] Univers 14:00:00 14:00:00 ROSSANA hubbard [facility] 2020-07-10 2020-07-10 Outpatient R NANNETTE [facility] [id number] Univers 11:45:00 11:45:00 WONDIFUL ity o f [facility] 2020-07-03 2020-07-03 Outpatient R NANNETTE [facility] [id number] Univers 13:45:00 13:45:00 WONDIFUL ity o f [facility] 2020-06-27 2020-06-27 Outpatient R NANNETTE [facility] [id number] Univers 16:00:00 16:00:00 WONDIFUL ity o f [facility] 2020-06-12 2020-06-12 Outpatient R NANNETTE [facility] [id number] Univers 11:00:00 11:00:00 WONDIFUL ity o f [facility] 2020-03-06 2020-03-06 [facility] [id number] 00:00:00 00:00:00 [facility] [id number] [place] [id number] Professio [phone] [address] 2020-03-04 2020-03-04 Telephone [facility] [id number] 00:00:00 00:00:00 [facility]ondiful A [place] [id number] [place] [id number] Professio [phone] [address] 2020-02-28 2020-02-28 Telephone [facility] [id number] 00:00:00 00:00:00 [facility] [id number] [place] [id number] Professio [phone] [place] [address] [facility] 2020-02-28 2020-02-28 Telephone [facility] [id number] 00:00:00 00:00:00 [facility] [id number] [place] [id number] Professio [phone] [place] [address] [facility] 2020-02-05 2020-02-05 [facility] [id number] Univers 08:15:00 08:15:00 WONDIFUL ity o f [facility] 2020-01-29 2020-01-29 Telemedici [facility] [id number] 07:08:00 10:19:10 ne Visit Wondiful A [place] [id number] [place] [id number] Professio [phone] [address] 2020-01-29 2020-01-29 [facility] [id number] Univers 08:15:00 08:15:00 WONDIFUL ity o f [facility] 2020-01-21 2020-01-21 [facility] [id number] Univers 12:00:00 12:00:00 ANA LAURA hubbard [facility] 2020-01-17 2020-01-17 [facility] [id number] Univers 09:00:00 09:00:00 PO hubbard [facility] 2020-01-14 2020-01-14 [facility] [id number] Univers 12:00:00 12:00:00 ANA LAURA hubbard [facility] 2019-12-07 2019-12-07 [facility] [id number] Univers 09:00:00 09:00:00 SHAWNEE hubbard [facility] Results Test Description Test Time Test Comments Results Result Comments Source CULTURE, URINE 2022-07-26 SPECIMEN NUMBER: 16:15:00 [id number] CULTURE, URINE SPECIMEN NUMBER: [id number] SPECIMEN COMMENT: URINE SOURCE: URINE REPORT STATUS: FINAL ISOLATE NUMBER 1: ORGANISM: 07/24/2022 >100,000 CFU/ML GRAM NEGATIVE BACILLI IDENTIFICATION: 07/25/2022 KLEBSIELLA PNEUMONIAE K. PNEUMONIAE AMOX ICILLIN/CA RESISTANT >16/8AMPICILLIN RESISTANT >16CEFAZOLIN RESISTANT >16CEFTRIAXONE SENSITIVE <=1CIPROFLOXACIN SENSITIVE <=1LEVOFLOXACIN SENSITIVE <=2NITROFURANTOIN SENSITIVE <=32PIP/TAZOBAC RESISTANT >64TETRACYCLINE RESISTANT >8TOBRAMYCIN SENSITIVE <=4TRIMETH/SULFA SENSITIVE <=2/38 NOTE: NUMBERS DISPLAYED REPRESENT MINIMUM INHIBITORY CONCENTRATION (GADIEL) WHICH IS EXPRESSED IN MCG/ML. HEMOGLOBIN A1c 2022-07-23 07:01:50 Test Item Value Reference Range Interpretation Comme nts HEMOGLOBIN A1c (test code = 9.4 % 4.2-5.6 H [employer] 17510) GUIDELINES FOR HGB A1C: PREDIABETES/INC REASED RISK . . . . . . . 5.7-6.4% DIAGNO SIS OF DIABETES . . . . . . . . . >=6.5% WITH CONFIRMATION OR APPROPRIATE SYM PTOMS NOTE: ASSAY MAY BE AFFECTED BY HEM OGLOBINOPATHIES (SICKLE CELL ANEMIA, S- C DISEASE, OTHERS) OR ARTIFICIALLY LO WERED BY DECREASED RED CELL SURVIVAL ( HEMOLYTIC ANEMIAS, BLOOD LOSS, ETC.). CO NSIDER ALTERNATE TESTING OR LABORATORY C ONSULTATION. COMPREHENSIVE METABOLIC [id number] 06:55:10 Test Item Value Reference Range Interpretation Comments GLUCOSE (test code = 86 MG/DL 70-99 2216) BUN (test code = 59 MG/DL 8-23 H 2207) CREATININE (test 2.31 MG/DL 0.60-1.30 H code = 2214) eGFR (2020 CKD-EPI) 22 ML/MIN/1.73 >60 L (test code = 22260) CALC BUN/CREAT (test 26 RATIO 6-28 code = 2235) SODIUM (test code = 138 MEQ/L 198-382 6676) POTASSIUM (test code 5.5 MEQ/L 3.5-5.4 H = 2227) CHLORIDE (test code 104 MEQ/L 95-107 = 2214) CARBON DIOXIDE (test 21 MEQ/L 19-31 code = 2205) CALCIUM (test code = 9.7 MG/DL 8.5-10.5 2208) PROTEIN, TOTAL (test 7.2 G/DL 6.1-8.3 code = 2228) ALBUMIN (test code = 4.0 G/DL 3.5-5.2 2200) CALC GLOBULIN (test 3.2 G/DL 1.9-3.7 code = 2239) CALC A/G RATIO (test 1.3 RATIO 1.0-2.6 code = 223) BILIRUBIN, TOTAL 0.3 MG/DL See_Comment [Automated message] (test code = 2206) The syste m which generated this result transmit pascale reference range : <=1.2. The refe rence range was not u sed to interpret th is result as normal/abnormal . ALKALINE PHOSPHATASE 126 U/L 40-142 (test code = 2203) AST (test code = 14 U/L 9-40 2217) ALT (test code = 13 U/L 5-40 2218) LIPID [id number] 06:55:10 Test Item Value Reference Range Interpretation Comments CHOLESTEROL (test 175 MG/DL <200 code = 2210) TRIGLYCERIDES (test 120 MG/DL <150 code = 2232) HDL CHOLESTEROL (test 70 MG/DL >39 code = 2220) CALC LDL CHOL (test 83 MG/DL <100 NOTE: C ALCULATED LDL code = 2237) IS BASED ON POPEYE-ELLISON METHOD WHICHINCLUDES ADJUSTABLE TRIGLYCERIDE:VL DL CHOLESTEROL RAT IO.THIS FACTOR VARIES B Y MEASURED TRIGLY CERIDE AND NON-HDLCHOL ESTEROL CONCENTRATIONS WITH INCREASED CALCU LATED LDL SEENIN HIGH ER TRIGLYCERIDE OR LOWER NON-HDL SPECIME NS. FOR MOREINFORMATION , SEE CLIENT ANNOUNCE MENT AT [email or web address] [email or web address] LDL/HDL 1.19 RATIO <3.22 (test code = 2237) ALBUMIN/CREATININE RATIO, URINE, [id number] 05:50:53 Test Item Value Reference Range Interpretation Comments CREATININE, URINE, 28.0 MG/DL NOT ESTAB CONC. (test code = 2071) ALBUMIN, URINE, 96.7 MG/DL NOT ESTAB RANDOM (test code = 11601) CALC 3454 MG/G <30 H Note: Albumin/ Creatinine ALBUMIN/CREAT, RND ratio ref erence interval (test code = reflects [place] [address]889) guidelines. UNL ESS OTHERWISE INDIC ATED, ALL TESTING PERFORM ED ATCLINICAL PATH [facility]LOGY LAB[facility]ATORIES, [place] [address] [facility] [place] [address] LABORATORY DIRE CTOR: Waqas PATEL. CLIA NUMBER [id number] CAP ACCREDITATION N O. [id number] COMPREHENSIVE METABOLIC [id number] 07:02:36 Test Item Value Reference Range Interpretation Comments GLUCOSE (test code = 122 MG/DL 70-99 H 2216) BUN (test code = 34 MG/DL 8-23 H 2207) CREATININE (test 2.26 MG/DL 0.60-1.30 H code = 2214) eGFR (2020 CKD-EPI) 23 ML/MIN/1.73 >60 L (test code = 88993) CALC BUN/CREAT (test 15 RATIO 6-28 code = 2235) SODIUM (test code = 137 MEQ/L 562-967 5547) POTASSIUM (test code 4.8 MEQ/L 3.5-5.4 = 2227) CHLORIDE (test code 102 MEQ/L 95-107 = 221) CARBON DIOXIDE (test 24 MEQ/L 19-31 code = 2206) CALCIUM (test code = 9.0 MG/DL 8.5-10.5 2208) PROTEIN, TOTAL (test 6.6 G/DL 6.1-8.3 code = 2229) ALBUMIN (test code = 3.8 G/DL 3.5-5.2 2200) CALC GLOBULIN (test 2.8 G/DL 1.9-3.7 code = 2240) CALC A/G RATIO (test 1.4 RATIO 1.0-2.6 code = 2234) BILIRUBIN, TOTAL 0.3 MG/DL See_Comment [Automated message] (test code = 2207) The syste m which generated this result transmit pascale reference range : <=1.2. The refe rence range was not u sed to interpret th is result as normal/abnormal . ALKALINE PHOSPHATASE 128 U/L 40-142 (test code = 2204) AST (test code = 14 U/L 2217) ALT (test code = 9 U/L 40 2218) ALBUMIN/CREATININE RATIO, URINE, [id number] 04:52:48 Test Item Value Reference Range Interpretation Comments CREATININE, URINE, 44.4 MG/DL NOT ESTAB RANDOM (test code = 2072) ALBUMIN, URINE, 103.8 MG/DL NOT ESTAB RANDOM (test code = 91442) CALC 2338 MG/G <30 H Note: ALBUMIN/CREAT, RND Albumin/C reatinine ratio (test code = reference inter hugo 56527) reflects ADA a nd NKF guidelines. UNL ESS OTHERWISE INDIC ATED, ALL TESTING PERFORM ED ATCLINICAL PATH OLOGY LABORATORIES, [facility]. [address] [place] [address] LABORATORY DIRE CTOR: GIOVANI OBANDO M.D. CLIA NUMBER [id number] [place] [id number] HEMOGLOBIN [id number] 03:48:30 Test Item Value Reference Range Interpretation Comments HEMOGLOBIN A1c (test 12.2 % 4.2-5.6 H [employer] AN DIABETES code = 24289) ASSOCIATION IDELINES FOR HGB A1C: PREDIABETES/INC REASED RISK . . . . . . . 5 .7-6.4% DIAGNOSIS OF DI ABETES . . . . . . . . . >=6 .5% WITH CONFIRMATION OR APPROPRIATE SYMPTOMS NOTE: ASSAY MAY BE AFFECTED BY HEMOGLOBINOPATH IES (SICKLE CELL ANEMIA, S- C DISEASE, OTHERS) OR DEVONTE FICIALLY LOWERED BY DECR EASED RED CELL SURVIVAL ( HEMOLYTIC ANEMIAS, BLOOD LOSS, ETC.). CONSIDER ALTERN ATE TESTING OR LABORATORY C ONSULTATION. CBC W/AUTO DIFF WITH [id number] 02:43:48 Test Item Value Reference Range Interpretation Comments WBC (test code = 9.2 K/UL 3.5-11.0 1001) RBC (test code = 3.33 M/UL 3.80-5.40 L 1002) HEMOGLOBIN (test code 9.6 G/DL 11.5-15.5 L = 1003) HEMATOCRIT (test code 28.6 % 34.0-45.0 L = 1004) MCV (test code = 85.9 fL 80.0-99.0 1005) MCH (test code = 28.8 PG 25.0-33.0 1006) MCHC (test code = 33.6 G/DL 31.0-36.0 1007) RDW (test code = 13.8 % 11.5-15.0 1038) NEUTROPHILS (test 70.3 % code = 1008) LYMPHOCYTES (test 21.3 % code = 1010) MONOCYTES (test code 6.4 % = 1011) EOSINOPHILS (test 1.1 % code = 1012) BASOPHILS (test code 0.5 % = 1013) IMMATURE GRANULOCYTES 0.4 % (test code = 1036) NUCLEATED RBCS (test 0.0 /100 WBC'S See_Comment [Aut omated code = 1065) message] The sy stem which generated this result transmitted reference range : 0.0. The refere nce range was not u sed to interpret th is result as normal/abnormal . PLATELET COUNT (test 367 K/UL 130-400 code = 1015) ABSOLUTE NEUTROPHILS 6.46 K/UL 1.50-7.50 (test code = 1066) ABSOLUTE LYMPHOCYTES 1.96 K/UL 1.00-4.00 (test code = 1067) ABSOLUTE MONOCYTES 0.59 K/UL 0.20-1.00 (test code = 1068) ABSOLUTE EOSINOPHILS 0.10 K/UL 0.00-0.50 (test code = 1040) ABSOLUTE BASOPHILS 0.05 K/UL 0.00-0.20 (test code = 1069) ABS IMMATURE 0.04 K/UL 0.00-0.10 GRANULOCYTES (test code = 1020) ABS NUCLEATED RBCS 0.00 K/UL 0.00-0.11 (test code = 33258) HEMOGLOBIN [id number] 10:41:06 Test Item Value Reference Range Interpretation Comments HEMOGLOBIN A1c (test 14.1 % 4.2-5.6 H [employer]ES code = 74641) ASSOCIATION IDELINES FOR HGB A1C: PREDIABETES/INC REASED RISK . . . . . . . 5 .7-6.4% DIAGNOSIS OF DI ABETES . . . . . . . . . >=6 .5% WITH CONFIRMATION OR APPROPRIATE SYMPTOMS NOTE: ASSAY MAY BE AFFECTED BY HEMOGLOBINOPATH IES (SICKLE CELL ANEMIA, S- C DISEASE, OTHERS) OR DEVONTE FICIALLY LOWERED BY DECR EASED RED CELL SURVIVAL ( HEMOLYTIC ANEMIAS, BLOOD LOSS, ETC.). CONSIDER ALTERN ATE TESTING OR LABORATORY C ONSULTATION. UNLESS OTHERWIS E INDICATED, ALL TESTING PER FORMED ATCLINICAL PATH OLOGY LABORATORIES, [place]. [address] [place] [address] LABORATORY DIRE CTOR: Waqas PATEL. CLIA NUMBER [id number] CAP ACCREDITATION N O. [id number] CBC W/AUTO DIFF WITH [id number] 10:18:54 Test Item Value Reference Range Interpretation Comments WBC (test code = 9.9 K/UL 3.5-11.0 1001) RBC (test code = 3.37 M/UL 3.80-5.40 L 1002) HEMOGLOBIN (test code 9.7 G/DL 11.5-15.5 L = 1003) HEMATOCRIT (test code 29.0 % 34.0-45.0 L = 1004) MCV (test code = 86.1 fL 80.0-99.0 1005) MCH (test code = 28.8 PG 25.0-33.0 1006) MCHC (test code = 33.4 G/DL 31.0-36.0 1007) RDW (test code = 13.5 % 11.5-15.0 1038) NEUTROPHILS (test 74.1 % code = 1008) LYMPHOCYTES (test 18.3 % code = 1010) MONOCYTES (test code 6.0 % = 1011) EOSINOPHILS (test 0.8 % code = 1012) BASOPHILS (test code 0.5 % = 1013) IMMATURE GRANULOCYTES 0.3 % (test code = 1036) NUCLEATED RBCS (test 0.0 /100 WBC'S See_Comment [Aut omated code = 1065) message] The sy stem which generated this result transmitted reference range : 0.0. The refere nce range was not u sed to interpret th is result as normal/abnormal . PLATELET COUNT (test 382 K/UL 130-400 code = 1015) ABSOLUTE NEUTROPHILS 7.31 K/UL 1.50-7.50 (test code = 1066) ABSOLUTE LYMPHOCYTES 1.81 K/UL 1.00-4.00 (test code = 1067) ABSOLUTE MONOCYTES 0.59 K/UL 0.20-1.00 (test code = 1068) ABSOLUTE EOSINOPHILS 0.08 K/UL 0.00-0.50 (test code = 1040) ABSOLUTE BASOPHILS 0.05 K/UL 0.00-0.20 (test code = 1069) ABS IMMATURE 0.03 K/UL 0.00-0.10 GRANULOCYTES (test code = 1020) ABS NUCLEATED RBCS 0.00 K/UL 0.00-0.11 (test code = 54285) COMPREHENSIVE METABOLIC [id number] 03:55:19 Test Item Value Reference Range Interpretation Comments GLUCOSE (test code = 276 MG/DL 70-99 H 2216) BUN (test code = 47 MG/DL 8-23 H 2207) CREATININE (test 2.10 MG/DL 0.60-1.30 H code = 221) eGFR (2020 CKD-EPI) 25 ML/MIN/1.73 >60 L (test code = 59489) CALC BUN/CREAT (test 22 RATIO 6-28 code = 2235) SODIUM (test code = 130 MEQ/L 133-146 L 2230) POTASSIUM (test code 5.2 MEQ/L 3.5-5.4 = 2227) CHLORIDE (test code 96 MEQ/L 95-107 = 2214) CARBON DIOXIDE (test 22 MEQ/L 19-31 code = 220) CALCIUM (test code = 9.5 MG/DL 8.5-10.5 2208) PROTEIN, TOTAL (test 6.5 G/DL 6.1-8.3 code = 2229) ALBUMIN (test code = 3.7 G/DL 3.5-5.2 2200) CALC GLOBULIN (test 2.8 G/DL 1.9-3.7 code = 2240) CALC A/G RATIO (test 1.3 RATIO 1.0-2.6 code = 2234) BILIRUBIN, TOTAL 0.3 MG/DL See_Comment [Automated message] (test code = 2207) The syste m which generated this result transmit pascale reference range : <=1.2. The refe rence range was not u sed to interpret th is result as normal/abnormal . ALKALINE PHOSPHATASE 148 U/L 40-142 H (test code = 2204) AST (test code = 9 U/L 9-40 2217) ALT (test code = 10 U/L 5-40 2218) LIPID [id number] 03:55:19 Test Item Value Reference Range Interpretation Comments CHOLESTEROL (test 161 MG/DL <200 code = 2210) TRIGLYCERIDES (test 143 MG/DL <150 code = 2232) HDL CHOLESTEROL (test 66 MG/DL >39 code = 2220) CALC LDL CHOL (test 72 MG/DL <100 NOTE: C ALCULATED LDL code = 2237) IS BASED ON POPEYE-ELLISON METHOD WHICHINCLUDES ADJUSTABLE TRIGLYCERIDE:VL DL CHOLESTEROL RAT IO.THIS FACTOR VARIES B Y MEASURED TRIGLY CERIDE AND NON-HDLCHOL ESTEROL CONCENTRATIONS WITH INCREASED CALCU LATED LDL SEENIN HIGH ER TRIGLYCERIDE OR LOWER NON-HDL SPECIME NS. FOR MOREINFORMATION , SEE CLIENT ANNOUNCE MENT AT [email or web address] LDL/HDL 1.09 RATIO <3.22 (test code = 2238) CT/NG, NAAT, [id number] 17:08:50 Test Item Value Reference Range Interpretation Comments GONORRHEA, NAAT NEGATIVE NEGATIVE IMPORTA NT NOTICE: SEE (test code = [place] [address]) [email or web address] Analytics, Inc.Kit Note: Assay methodology is nucleic acid amplification b y manufacturers service representative m ediated amplification ( TMA) utilizing the A ptima Combo 2 Assay. CHLAMYDIA, NAAT NEGATIVE NEGATIVE IMPORTA NT NOTICE: SEE (test code = [place] [address]) [email or web address] [email or web address] Note: Assay methodology is nucleic acid amplification b y manufacturers service representative m ediated amplification ( TMA) utilizing the A ptima Combo 2 Assay. UNLESS OTHERWISE INDICATED, ALL TESTING PERFORMED [facility] [address] [place] [address] [place] [address] DIRECTOR: GIOVANI BAL M.D. [place] NUMBER [id number] CAP ACCREDITATION N O. [id number] VAGINAL PATHOGENS DNA [id number] 13:23:02 Test Item Value Reference Range Interpretation Comments SPEEDY SPECIES (test code = ) NEGATIVE NEGATIVE G. VAGINALIS (test code = ) NEGATIVE NEGATIVE T. VAGINALIS (test code = ) NEGATIVE NEGATIVE
[2023-02-14 11:06] VITALS: BMI 34.0
[2023-02-14] MEDS ORDERED: GLUCAGON 1 MG/VIAL IM PRN (11:30)
[2023-02-14] MEDS ORDERED: D50W 25 GM/50 ML SYRINGE IV PRN (11:30)
[2023-02-14] MEDS ORDERED: D10W 125 ML IV PRN (11:36)
[2023-02-14] MEDS ORDERED: DOCUSATE NA 100 MG CAP PO PRN (12:44)
[2023-02-14] MEDS: INSULIN -REGULAR HUMAN 50 UNIT/0.5 ML ML SQ SCH ×3 (12:45→20:08)
[2023-02-14] MEDS ORDERED: LACTULOSE 20 GM/30 ML UCUP PO PRN (13:27)
[2023-02-14] MEDS: FUROSEMIDE 40 MG TABLET PO SCH (17:27)
[2023-02-14] MEDS: HEPARIN 5000 UNIT/ML 1 ML VIAL SQ SCH (19:00)
[2023-02-14] MEDS: DOCUSATE NA/SENNA CONC 1 TAB PO PRN (19:04)
[2023-02-14] MEDS: ROSUVASTATIN 10 MG TAB PO SCH (19:04)
[2023-02-14] MEDS: MUPIROCIN 2% OINT 22GM TUBE TOP SCH (19:07)
[2023-02-14 19:37] LABS: Specific Gravity 1.007 (1.005-1.030); Urine Bacteria None Seen /HPF (<20); Urine Bilirubin NEGATIVE (Negative); Urine Blood 1+ (Negative); Urine Clarity Clear (Clear); Urine Color Colorless (Yellow); Urine Glucose 4+ (Negative); Urine Mucus Slight /HPF (None Seen); Urine Protein 2+ (Negative); Urine RBC <5 /HPF (None Seen); Urine Urobilinogen Normal (Normal)
[2023-02-15 04:14] LABS: Hematocrit 22.2 % (36.0-45.0); MCV 86.1 fL (80-100); MPV 6.1 fL (7.6-11.3); RBC Red Blood Cell Count 2.58 M/uL (3.86-4.86)
[2023-02-15 04:39] LABS: Albumin 2.3 g/dL (3.4-5.0); Magnesium 1.8 mg/dL (1.6-2.4); Prealbumin 16.9 mg/dL (20-40)
[2023-02-15] MEDS: HEPARIN 5000 UNIT/ML 1 ML VIAL SQ SCH ×2 (06:16→19:42)
[2023-02-15] MEDS: INSULIN -REGULAR HUMAN 50 UNIT/0.5 ML ML SQ SCH ×4 (06:53→19:42)
--- NOTE | 2023-02-15 06:58 | HP ---
Date of Admission: 02/14/2023 [facility] Admission History And Physical Time Of Service: 1 p.m. Chief Complaint: "I fell in the home, could not get up, it is hurting, and became weak." History Of Present Illness: Ms. Mahoney is a 67-year-old right-handed patient, who lives at home al one in an upstairs apartment and is typically independent with a quad cane and a Rollator, doing all of her activities of daily living when she apparently fell at home and was not found for about 18 juan rs. She eventually was heard by a neighbor screaming and was brought to [facility] on 02/07 . It should be noted that previously she was admitted on 02/04 and discharged on 02/06 for bilateral pyelonephritis, hyponatremia, positive urine culture with Klebsiella pneumoniae and she did receive IV Rocephin and discharged on Levaquin. She did state that she believes low blood sugar was a cause for that fall on the fence that her legs gave out and she could not get up. While in the emergency r oom, sodium down to 104, chloride 97, creatine kinase elevated to 14,000, ALT 120. Troponins elevate d to 783.6 and beta-natriuretic peptide elevated to 2273. White count elevated to 7.5, hemoglobin do wn to 8.2. She was admitted with rhabdomyolysis, zlh-GJ-avgmqyb myocardial infarction, hyponatremia, anemia, and she received meropenem, IV fluids, 1 unit of packed red blood cells and a Owens was inse rted. She did receive aspirin and systemic anticoagulation. She was seen by the Nephrology and Card iology Services. She did have an echocardiogram once blood was given and active bleeding ruled out. Aspirin was continued. She did have continued monitoring of her hemoglobin. She was evaluated by [facility] Physical, Occupational, and Therapy Service and found to require moderate assistance for gait, tra nsfers, bed mobility, and she did have moderate pain and constipation. She did have recent heart dis ease evaluation on the by Cardiology determining that aggressive management of fluids and cardia c function is required. Due to her complicated medical course and significant debility and rhabdomyo lysis with weakness, it is determined that she is better placed in an inpatient rehabilitation unit v ersus a shelter facility. Past Medical History: Hypertension, dyslipidemia, diabetes mellitus, bipolar disorder, schizophrenia , hysterectomy, and hemorrhoidectomy. Social History: The patient lives alone. No recent alcohol, tobacco, or IV drug use. Allergies: FLUOXETINE, CODEINE, DIPHENHYDRAMINE. Family History: Noncontributory. Review of Systems: She did have constipation, but earlier today had a bowel movement. Otherwise, no fevers or chills. There is diffuse weakness and myalgias. No rash. No headache. She does have some flight of ideas i n terms of psychiatric complaints. No other positives on the systems review. Current Medications: Colace 100 mg daily, Lasix 60 mg twice daily, heparin 5000 units every 12 hours intravenously, lactulose 10 g twice daily, Crestor 10 mg at bedtime, Senokot-S 2 at bedtime. Review of Systems: As noted. X-ray/imaging: Chest x-ray shows moderate pulmonary opacities compatible with pulmonary edema. Hear t mildly enlarged. That was done on 02/10/2023. On 02/07, liver ultrasound showed cholelithiasis. Head CT scan and spine same day showed 4 mm anterolisthesis of C4 on C5 at C-spine. On 02/08, mild-t o-moderate lower cervical spondylosis noted. On 02/09, chest x-ray, again mild CHF, volume overload pattern. Physical Examination: General: Ms. Mahoney is resting in bed, she does at times have a wide-eyed stare. Vital Signs: Blood pressure elevated to 186/72, pulse 86, respiratory rate 16, temperature 97.6, oxy gen saturation 97%. HEENT: She is otherwise normocephalic, atraumatic. Sclerae are anicteric. Oropharynx is moist. Neck: Supple. Chest: Clear. Heart: Regular. Extremities: Show no significant edema. Neurologic: She is alert and oriented to situation and person. Appears somewhat tangential in speec h. She shows no obvious cranial nerve deficits. There is diffuse weakness in upper and lower extrem ities. No focal deficits noted. Laboratory Studies: White blood cell count 6.6, hemoglobin 7.6, platelets 286, blood glucose 214, up to 277. Sodium 136, potassium 3.8, chloride 102, carbon dioxide 32, BUN 17, creatinine 1.8, calcium 8.4. Her COVID test is negative. Urinalysis, 1+ blood, 4+ glucose, 2+ total protein. Current Level Of Functioning: Currently, she did stand and pivot transfers with minimum assistance u sing a rolling walker. Her supine to sit transfers done with minimum to moderate assistance. She di d anterior propel a wheelchair with bilateral lower and upper extremities, covering 200 feet. She wa s evaluated by Speech Pathology with long-term goals set for 85% intelligible conversation, minimum a ssistance, stroke cessation, plan to improve executive functioning skills with moderate assistance. Rehabilitation And Medical Assessment And Plan: Ms. Mahoney is a 67-year-old patient admitted to [facility] rehabilitation unit with rhabdomyolysis and diffuse weakness after a fall with prolonged inability to move from the floor. She does have comorbid COPD, pulmonary edema, poorly controlled hypertension , schizophrenia, dyslipidemia, diabetes mellitus, anemia. Please note, her rehabilitation impairment code is 06 neurologic condition, her impairment group that is a rehab impairment group category is 06 neurologic condition, and her impairment group code is 03 .8, neuromuscular disorder. Etiologic diagnosis is rhabdomyolysis. Plan: 1.Physical, occupational, and speech therapy, 3.5 hours 5 of 7 days. 2.For her COPD, we will continue nebulizers. 3.For hypertension and fluid overload, continue Lasix. 4.Continue Senokot S for constipation. 5.Continue Crestor for dyslipidemia. 6.Continue heparin for DVT prophylaxis. 7.Colace for constipation. Impact Of Comorbid: 1.She does have COPD and some fluid overload and that may impact the ability to oxygenate and regain endurance. She will have nebulizers, incentive spirometry, and aggressive physical therapy to help. A repeat chest x-ray may be done if required. 2.She does have history of schizophrenia. At this point, no active paranoid ideation, but mild lane ential thinking. She will be carefully monitored. Rehab Specific Plan: 1.Ms. Mahoney will have physical and occupational therapy for 3 hours a day, 5 of 7 days to improve her strength, coordination, gait, upper and lower body dressing, toileting, and performance of her a ctivities of daily living. 2.She will have speech therapy 4.5 hours, 5 of 7 days to improve her cognition and understanding and processing of what she is doing in the inpatient rehabilitation unit. 3.She will have shelter throughout managing medications, adjusting blood pressure medication s, checking blood pressure, and blood work for her anemia which she did receive a unit previously of blood and she may require additional unit. Ms. Mahoney has a good understanding of her admission to the inpatient rehabilitation unit. She has good potential to make improvement and will need physical, occupational, and speech therapy along wi shelter to address all other comorbid needs. Additionally, Respiratory Service, Cardiac S ervice, Psychiatric Service, and Nutritional Service may be consulted. Given her complex condition a nd risk of further medical complications, her rehabilitation cannot be safely or effectively provided at a lower level such as shelter. Barriers To Discharge: She has a COPD with fluid on lungs and provides a mild barrier, but will have aggressive use of incentive spirometry and nebulizers to help. Estimated Length Of Stay: About 12 days. Disposition: Home. Prognosis: Good. Rehabilitation Goals: 1.Independent with upper and lower body dressing and toileting. 2.Ambulate 250 feet with independence. 3.Up and down 10 steps with independence. 4.Perform cognitive functioning, language, comprehension, expression, visual and spatial orientation and processing with independence. I acknowledge that I personally performed a full physical examination on Sola Mahoney no later than 2 4 hours after admission to the inpatient rehabilitation unit and determined that she is able to mayra ate the above course of treatment at the intensive level stated. Detailed individualized plan of car e for her will be completed by hospital day 4 based on the preadmission screen, history and physical, and therapy evaluations. SCOT Voice ID: [id number]
--- NOTE | 2023-02-15 07:08 | PN ---
Subjective: The patient is transferred to rehab floor. She is undergoing physical therapy. She was initiated on dialysis because of severe fluid overload and progressively worse azotemia. Patient de nies chest pain, palpitation, and she was undergoing physical therapy today. The patient developed acute kidney injury associated with severe fluid overload. She is currently on diuretic and urine output is somewhat improving. Electrolytes are stable. Review of Systems: Denies fever or chills. Physical Examination: Lungs: Clear to auscultation bilaterally. Heart: S1, S2. Abdomen: Soft. Extremities: Edema present, although improved. Impression And Plan: 1.Acute kidney injury secondary to rhabdomyolysis. Renal function has not improved and dialysis was started to control volemia, azotemia, and electrolyte abnormalities. Patient developed worsening hy ponatremia, metabolic acidosis, and hyperphosphatemia. She was started on hemodialysis for acute kid angel injury with complication including abnormalities of the electrolytes and fluid overload. 2.Rhabdomyolysis. Monitor CPK level. 3.Fluid overload. A urine output is improving. Monitor electrolytes. Continue Angela. EMMY/GINNA Voice ID: [id number] Report ID: [id number]
[2023-02-15] MEDS: FUROSEMIDE 40 MG TABLET PO SCH ×2 (07:35→17:36)
[2023-02-15] MEDS: MUPIROCIN 2% OINT 22GM TUBE TOP SCH ×2 (07:36→19:41)
[2023-02-15] MEDS: LACTULOSE 20 GM/30 ML UCUP PO PRN (07:36)
[2023-02-15] MEDS: PALIPERIDONE 1.5 MG PO SCH (07:37)
[2023-02-15] MEDS: ROSUVASTATIN 10 MG TAB PO SCH (19:41)
--- NOTE | 2023-02-15 23:24 | PN ---
Date of Progress Note: 02/15/2023 [facility] Visit Time Of Service: 1:30 p.m. Subjective: Ms. Mahoney reports doing very well with her therapy. She is enjoying her therapy so f ar. She did, however, not like the food that she had and she is now asking for some new food for gema including some sandwiches. Staff is trying to make that happen. Otherwise, no other complaints i n terms of subjective. Review of Systems: No fevers or chills. Mild myalgias. No rash, headache, or weight change. No psychiatric complaints , although she does have stable psychiatric conditions. Physical Examination: Vital Signs: Blood pressure 138/62, pulse 86, respiratory rate 18, temperature 97.6, and oxygen satu ration 93%. General: Ms. Mahoney is resting in bed. She is in no acute distress. HEENT: Normocephalic, atraumatic. Sclerae anicteric. Oropharynx is moist. Neck: Supple. Chest: Clear. Abdomen: Obese. Neurologic: She has proximal weakness in lower extremities and upper extremities, but no focal weakn ess identified. Laboratory Studies: White blood cell count 7.9 and hemoglobin 7.5, which is low. She has not had an y blood transfusion. She is on Hemocyte Plus and ferrous sulfate. DICTATION ENDS HERE INA/GINNA Voice ID: [id number] Report ID: [id number]
--- NOTE | 2023-02-15 23:48 | PN ---
Date of Progress Note: 02/15/2023 Continuation: Laboratory Studies: Her hemoglobin is 7.5 on 02/15/2023. It was 7.6 on 02/12/2023. She did receive 1 unit of blood on 02/15/2023. Otherwise chemistries show sodium low at 133, potassium 4.0, chlorid e 98, carbon dioxide 33, BUN 29, creatinine 2.44, glucose ranged from 191 to 293. Calcium 8.5, magne sium 1.8. Please note, she is followed by Dr. Durán on the Renal Service, and she did have hemodialysis because of fluid overload and acute renal injury secondary to rhabdomyolysis. It is noted from Dr. Durán, ling t renal function has not improved and that is why dialysis was used because to controlled volume and azotemia along with electrolyte abnormalities. The patient is being monitored by the Renal Service. Imaging: No new x-ray imaging. Medications: Colace 100 mg twice daily, ferrous sulfate 325 mg daily, Lasix 60 mg twice daily, hepar in 5000 units every 12 hours, lactulose twice daily, Hemocyte Plus daily, Crestor 10 mg at bedtime, Senokot-S 2 at bedtime. Current Functional Status: Today, Ms. Mahoney did multiple stand pivot transfers with contact guard assistance using a rolling walker. She did multiple toilet transfers with contact guard assistance using a rolling walker. She did supine to sit transfers with contact guard assistance. She ambulate d 250 feet twice, 200 feet with contact guard to standby assistance using a rolling walker. She asce nded and descended 5 steps with contact guard assistance using bilateral handrails. With speech ther apy, she demonstrated speech production, short sentence level with 90% intelligibility and intelligib ility decreased to 70% at conversational speech due to imprecise articulation and rapid rate of speec h. Progress Towards Rehabilitation Goals: Ms. Mahoney is making excellent progress towards her goals o f becoming independent with upper and lower body dressing, transferring, toileting, showering, and am bulating more than household distances such as 250 feet with a rolling walker and ascending 10 steps with independence without an assistive device by holding onto handrails. Assessment: Ms. Mahoney is a 67-year-old patient in the rehabilitation unit with rhabdomyolysis and debility, which includes diffuse weakness in the lower extremities, multiple falls. She has chronic obstructive pulmonary disease, acute renal failure followed by Renal Service; pulmonary edema, poorl y controlled hypertension, schizophrenia, dyslipidemia, diabetes mellitus, and significant anemia. Plan: 1.Physical, occupational, and speech therapy 3.5 hours, 5 of 7 days. 2.She will be monitored for the need for blood transfusion, repeat hemoglobin and hematocrit. Renal Service is also following. Continue nebulizers for COPD. Continue Lasix for volume overload and hy pertension control. Continue Senokot for constipation. Continue Crestor for dyslipidemia, and hepar in for DVT prophylaxis and Colace for constipation. Comorbidities That Impact Her Rehabilitation Process: She has renal insufficiency and would require fluid management which is done by the Renal Service along with diuretic use. She has history of schi zophrenia. At this point, no active paranoid ideation. Again, she does have some tangential thinkin g, and she is working with speech pathology. INA/GINNA Voice ID: [id number] Report ID: [id number]
[2023-02-16] MEDS ORDERED: ACETAMINOPHEN 500 MG TAB ONE (01:51)
[2023-02-16 05:09] LABS: Absolute Lymphocytes (CBC) 2.4 K/uL (0.7-4.9); Hematocrit 21.5 % (36.0-45.0); Lymphocytes % 22.8 % (15.3-44.8); MCV 86.2 fL (80-100); MPV 6.3 fL (7.6-11.3); RBC Red Blood Cell Count 2.49 M/uL (3.86-4.86)
[2023-02-16 05:10] LABS: Albumin 2.3 g/dL (3.4-5.0); Phosphorus 4.1 mg/dL (2.5-4.9); Potassium 3.8 mEq/L (3.5-5.1)
[2023-02-16] MEDS: FERROUS SULFATE 325 MG TAB PO SCH (07:50)
[2023-02-16] MEDS: FE SULF/FA/VIT B COMP & C TAB PO SCH (07:50)
[2023-02-16] MEDS: FUROSEMIDE 40 MG TABLET PO SCH ×2 (07:51→18:18)
[2023-02-16] MEDS: HEPARIN 5000 UNIT/ML 1 ML VIAL SQ SCH ×2 (08:13→19:32)
[2023-02-16] MEDS: INSULIN -REGULAR HUMAN 50 UNIT/0.5 ML ML SQ SCH ×4 (08:30→19:55)
[2023-02-16] MEDS: PALIPERIDONE 1.5 MG PO SCH (08:31)
[2023-02-16] MEDS: MUPIROCIN 2% OINT 22GM TUBE TOP SCH ×2 (10:08→19:54)
--- NOTE | 2023-02-16 13:37 | PN ---
Date of Progress Note: 02/16/2023 Subjective: The patient was admitted to the hospital with shortness of breath, deconditioning. The patient had acute kidney injury secondary to cardiorenal on advanced chronic kidney disease. The patient required to be initiated on dialysis. The patient is still nonoliguric. Her rhabdo has been improved. The patient feeling better, started physical therapy. Physical Examination: Vital Signs: Blood pressure 144/61, pulse of 77. Chest: Clear to auscultation. Heart: S1, S2. Systolic murmur. Abdomen: Soft, nontender. Extremities: Trace edema. Neurologic: Alert. No focality. Laboratory Data: Hemoglobin 7.3. Sodium 131, potassium 3.8, bicarb 34, BUN 32, creatinine 2.5, GFR of 20, calcium 8.5, phosphorus 4.1, albumin 2.3, corrected calcium is 10. Current Medications: The patient on include Nifidpin , tylenol Lasix 60 b.i.d., lactulose. Assessment And Plan: 1. Acute kidney injury and advanced chronic kidney disease secondary to rhabdomyolysis, currently normal volume. No uremic symptoms. No hyperkalemia. Last dialysis was on Tuesday. I am going to continue to hold on the dialysis. I will monitor the patient closely and we will follow up. 2. Hypertension, controlled, optimal. Continue current medications. 3. Hyponatremia. We will continue diuresis. 4. Rhabdomyolysis, status post acute kidney injury, recovered. Continue PT/OT. Time spent examining the patient [id number], reviewing data, lab and radiology, placing order, discussing the case with the patient, discussing the case with the seo team lead including nurse more than 35 minutes GILDARDO Voice ID: [id number] Report ID: [id number] FAUSTINA
[2023-02-16] MEDS: ACETAMINOPHEN 500 MG TAB PO PRN (18:22)
[2023-02-16] MEDS: ROSUVASTATIN 10 MG TAB PO SCH (19:54)
--- NOTE | 2023-02-16 22:34 | PN ---
Date of Progress Note: 02/16/2023 [facility] Progress Note Visit Time Of Service: 1 p.m. Subjective: Ms. Mahoney is doing well. She is in no significant distress. Her therapy is going we ll. She has no new complaints, although the food is not up to her standards. Review of Systems: No significant fevers, chills, myalgias, arthralgias, rash, headache, or weight change. Physical Examination: Vital Signs: Blood pressure 119/54, pulse 87, respiratory rate 16, temperature 97.8, and oxygen satu ration 93%. Weight 186 pounds, height 5 feet 2 inches, BMI 34. General: Ms. Mahoney is doing well. Neurologic: She has no focal neurological deficits. She does have proximal weakness in the lower ex tremities more than the upper extremities and a mild stocking-glove loss. No other findings on exami nation. Laboratory Studies: White blood cell count 10.5, hemoglobin 7.3, and platelets 283. Glucose ranged from 181 to 312, sodium 131, creatinine 2.51, and albumin 2.3. X-ray/imaging: None. Medications: Her medications have been reviewed and are managed in conjunction with the Renal Servic e who sees the patient for her renal insufficiency. Current Functional Status: Today she ambulated 250 feet twice, another 200 feet and [address] andby assistance using a rolling walker. She also ascended and descended 15 steps with contact guard assistance. With speech therapy, speech production strategies were reviewed. She used decreased ra te of speech and overall articulation. She produced sentences with speech level with 100% intelligib ility. Conversational intelligibility is 80%. Progress Towards Rehabilitation Goals: Ms. Mahoney is making great progress towards her goals of be coming independent with upper and lower body dressing, transferring, toileting, showering, and ambula ting up to 250 feet with modified independence and up and down 10 steps with modified independence. Assessment: Ms. Mahoney is a 67-year-old patient in the rehabilitation unit with rhabdomyolysis, ac ysd-ax-qbekxqg renal failure, and xayczhcu-qc-mcjend anemia. She has pulmonary edema, hypertension, schizophrenia, dyslipidemia, and diabetes mellitus. Plan: 1.Continue with physical, occupational, and speech therapy 3.5 hours, 5 of 7 days. 2.She does have significant anemia and the Renal Service is following. We will help with blood vu sfusions as appropriate. 3.Continue with nebulizers for COPD and pulmonary edema. 4.Continue with Lasix for volume overload. 5.Continue Senokot for constipation. 6.Crestor for dyslipidemia. 7.Heparin for DVT prophylaxis. 8.Colace for constipation. Comorbids That Impact Rehabilitation Process: 1.Currently, she has qcvfcnjp-vs-mvicdq anemia, but still doing very well. The Renal Service is mon itoring and may transfuse as appropriate. 2.She has renal insufficiency, again followed by the Renal Service. She is also closely followed by Speech Pathology. LB/MODL Voice ID: [id number] Report ID: [id number]
[2023-02-17] MEDS: GUAIFENESIN/DM 5 ML UCUP PO PRN ×4 (00:38→20:10)
[2023-02-17 04:28] LABS: Absolute Lymphocytes (CBC) 2.3 K/uL (0.7-4.9); Hematocrit 20.1 % (36.0-45.0); Lymphocytes % 25.8 % (15.3-44.8); MCV 86.9 fL (80-100); MPV 6.4 fL (7.6-11.3); RBC Red Blood Cell Count 2.32 M/uL (3.86-4.86)
[2023-02-17 05:31] LABS: Albumin 2.2 g/dL (3.4-5.0); Magnesium 1.7 mg/dL (1.6-2.4); Potassium 3.9 mEq/L (3.5-5.1); Prealbumin 15.5 mg/dL (20-40)
[2023-02-17] MEDS: HEPARIN 5000 UNIT/ML 1 ML VIAL SQ SCH ×2 (07:25→19:07)
[2023-02-17] MEDS: PALIPERIDONE 1.5 MG PO SCH (07:30)
[2023-02-17] MEDS: FERROUS SULFATE 325 MG TAB PO SCH (07:31)
[2023-02-17] MEDS: FUROSEMIDE 40 MG TABLET PO SCH ×2 (07:31→16:10)
[2023-02-17] MEDS: INSULIN -REGULAR HUMAN 50 UNIT/0.5 ML ML SQ SCH ×4 (07:32→20:10)
[2023-02-17] MEDS: FE SULF/FA/VIT B COMP & C TAB PO SCH (07:32)
[2023-02-17] MEDS: MUPIROCIN 2% OINT 22GM TUBE TOP SCH ×2 (09:41→20:09)
[2023-02-17] MEDS ORDERED: NA CHLORIDE 0.9% 250 ML IV SCH (16:00)
[2023-02-17] MEDS ORDERED: cloNIDine HCL 0.1 MG TAB PO PRN (16:08)
[2023-02-17] MEDS: ROSUVASTATIN 10 MG TAB PO SCH (20:09)
--- NOTE | 2023-02-17 22:22 | PN ---
Date of Progress Note: 02/17/2023 Time Of Service: 1 p.m. Subjective: Ms. Mahoney is resting in bed comfortably. She denies any significant problems. She d oes have her head down while in Trendelenburg position as she had some lightheadedness sitting up. O therwise, no complaints. Review of Systems: Mild lightheadedness with sitting up. Otherwise, no fevers or chills. No myalgias, arthralgias, or rash. Physical Examination: Vital Signs: Blood pressure 126 up to 175 over 66 to 78, pulse 73 to 84, temperature 97.3, respirato ry rate 16 to 20. General: Ms. Mahoney is resting in bed with slight Trendelenburg position. She does not have focal deficits. Neurological: Her examination reveals proximal weakness more than distal weakness in lower extremiti es, which is improving. Decreased sensation in lower extremities versus upper extremities. Laboratory Studies: White blood cell count 9.0, hemoglobin is down to 6.7. She did have 1 unit of b lood transfused and will likely have a 2nd unit transfused especially if the post-transfusion remains low. Platelet count 249, sodium 128, potassium 3.9, chloride 93, carbon dioxide 31, BUN 45, creatin ine 3.0. Her glucose ranged from 250 to 304, calcium 8.5, magnesium 1.7, albumin 2.2, prealbumin 15. 5. X-ray/imaging: None. Current Medications: Have been reviewed and remained unchanged from yesterday. Current Functional Status: Today she ambulated 250 feet twice, another 175 feet twice, and 100 feet once with standby assistance using a rolling walker. She ascended and descended 15 steps with contac t guard assistance using bilateral handrails. She performed multiple ohayi-kr-hzyyf transfers with s tandby assistance using a rolling walker and mhrqvi-gf-iky transfers with standby assistance and verb al cues. With her occupational therapy, she engaged in 2 minute dynamic standing balance to perform a table top range of motion activities. With speech therapy, she had continued teaching of compensat ory speech production techniques specifically over-articulation and reduce rate of speech. She was 1 00% intelligible at sentence level and 70% intelligible at conversational level. Progress Towards Rehabilitation Goals: Ms. Mahoney is making good progress towards rehabilitation g oals of becoming independent with upper and lower body dressing, toileting, transferring, and ambulat ing up to 250 feet with modified independence and being able to go up and down 10 steps with modified independence. In addition, her cognitive functioning is improving towards a goal of modified indepe ndence with comprehension, expression, and memory. Assessment And Plan: Ms. Mahoney is a 67-year-old patient in the rehabilitation unit with rhabdomyo lysis, acute on chronic renal failure, jkrfshcx-bs-jwyryk anemia, pulmonary edema, hypertension, schi zophrenia, dyslipidemia, and diabetes mellitus. Plan: 1.Continue with physical, occupational, and speech therapy 3.5 hours, 5 of 7 days. 2.Renal Service is helping with her renal insufficiency and renal failure. 3.She did receive a unit of blood. We will follow up with the post unit hemoglobin and may give ano ther unit if need be. 4.Nebulizers for COPD. 5.Lasix for volume overload in the lungs. 6.Senokot S for constipation. 7.Crestor for dyslipidemia. 8.Heparin 5000 units twice daily for DVT prophylaxis. 9.Colace for constipation along with Senokot. Comorbids That Continue To Impact Her Rehabilitation Process: Note, she has severe anemia and did re ceive a unit of blood. Renal Service is helping. INA/GINNA Voice ID: [id number] Report ID: [id number]
[2023-02-18 00:46] LABS: Absolute Lymphocytes (CBC) 2.4 K/uL (0.7-4.9); Hematocrit 23.3 % (36.0-45.0); Lymphocytes % 26.7 % (15.3-44.8); MCV 85.8 fL (80-100); MPV 6.6 fL (7.6-11.3); RBC Red Blood Cell Count 2.71 M/uL (3.86-4.86)
[2023-02-18] MEDS: GUAIFENESIN/DM 5 ML UCUP PO PRN (02:46)
[2023-02-18] MEDS: HEPARIN 5000 UNIT/ML 1 ML VIAL SQ SCH ×2 (07:35→19:58)
[2023-02-18] MEDS: PALIPERIDONE 1.5 MG PO SCH (07:36)
[2023-02-18] MEDS: FUROSEMIDE 40 MG TABLET PO SCH ×2 (07:36→17:01)
[2023-02-18] MEDS: FERROUS SULFATE 325 MG TAB PO SCH (07:37)
[2023-02-18] MEDS: FE SULF/FA/VIT B COMP & C TAB PO SCH (07:37)
[2023-02-18] MEDS: INSULIN -REGULAR HUMAN 50 UNIT/0.5 ML ML SQ SCH ×4 (08:04→19:59)
--- NOTE | 2023-02-18 08:41 | P.RH.PN ---
Estimated Length of Stay: 9 Expected Discharge Date: 02/22/23 Discharge Disposition Plan: Home Family Support: Yes [employer] Goal: Mobility, Transfers, Self Care Vital Signs: Last Vital Signs Temp 97.1 F 02/17/23 21:04 Pulse 73 02/18/23 07:36 Resp 18 02/17/23 21:04 BP 150/63 H 02/18/23 07:36 Pulse Ox 97 02/17/23 21:04 Laboratory: Laboratory Last Values WBC 9.00 thou/uL (4.3-10.9) 02/17/23 23:50 RBC 2.71 M/uL (3.86-4.86) L 02/17/23 23:50 Hgb 7.9 g/dL (12.0-15.0) L D 02/17/23 23:50 Hct 23.3 % (36.0-45.0) L 02/17/23 23:50 MCV 85.8 fL (80-100) 02/17/23 23:50 MCH 28.9 pg (27.0-35.0) 02/17/23 23:50 MCHC 33.7 g/dL (32.0-36.0) 02/17/23 23:50 RDW 15.4 % (12.1-15.2) H 02/17/23 23:50 Plt Count 248 thou/uL (152-406) 02/17/23 23:50 MPV 6.6 fL (7.6-11.3) L 02/17/23 23:50 Neutrophils % 58.9 % (41.7-73.7) 02/17/23 23:50 Lymphocytes % 26.7 % (15.3-44.8) 02/17/23 23:50 Monocytes % 10.8 % (3.3-12.3) 02/17/23 23:50 Eosinophils % 2.6 % (0-4.4) 02/17/23 23:50 Basophils % 1.0 % (0-1.3) 02/17/23 23:50 Absolute Neutrophils 5.3 K/uL (1.8-8.0) 02/17/23 23:50 Absolute Lymphocytes 2.4 K/uL (0.7-4.9) 02/17/23 23:50 Absolute Monocytes 1.0 K/uL (0.1-1.3) 02/17/23 23:50 Absolute Eosinophils 0.2 K/uL (0-0.5) 02/17/23 23:50 Absolute Basophils 0.1 K/uL (0-0.5) 02/17/23 23:50 Sodium 128 mEq/L (136-145) L 02/17/23 04:00 Potassium 3.9 mEq/L (3.5-5.1) 02/17/23 04:00 Chloride 93 mEq/L (98-107) L 02/17/23 04:00 Carbon Dioxide 31 mEq/L (21-32) 02/17/23 04:00 Anion Gap 7.9 mEq/L (5.0-15.0) 02/17/23 04:00 BUN 45 mg/dL (7-18) H 02/17/23 04:00 Creatinine 3.00 mg/dL (0.55-1.02) H 02/17/23 04:00 Est GFR (CKD-EPI) 16 ml/min (=/>90) L 02/17/23 04:00 Glucose 304 mg/dL (74-106) H 02/17/23 04:00 POC Glucose 218 mg/dL (65-120) H 02/18/23 08:00 Calcium 8.5 mg/dL (8.5-10.1) 02/17/23 04:00 Phosphorus 4.1 mg/dL (2.5-4.9) 02/16/23 04:17 Magnesium 1.7 mg/dL (1.6-2.4) 02/17/23 04:00 Albumin 2.2 g/dL (3.4-5.0) L 02/17/23 04:00 Prealbumin 15.5 mg/dL (20-40) L 02/17/23 04:00 Urine Color Colorless (Yellow) 02/14/23 17:20 Urine Clarity Clear (Clear) 02/14/23 17:20 Urine pH 7.0 (5.0-7.0) 02/14/23 17:20 Ur Specific [place] 1.007 (1.005-1.030) 02/14/23 17:20 Glucose (UA)(Auto) 4+ (Negative) H 02/14/23 17:20 Urine Ketones Negative (Negative) 02/14/23 17:20 Urine Blood 1+ (Negative) H 02/14/23 17:20 Urine Nitrite Negative (Negative) 02/14/23 17:20 Urine Bilirubin Negative (Negative) 02/14/23 17:20 Urine Urobilinogen Normal (Normal) 02/14/23 17:20 Ur Leukocyte Esterase Negative Lyndon/uL (Negative) 02/14/23 17:20 Urine RBC <5 /HPF (None Seen) 02/14/23 17:20 Urine WBC <5 /HPF (<5) 02/14/23 17:20 Ur Squamous Epith Cells <5 /HPF (None Seen) 02/14/23 17:20 Urine Bacteria None seen /HPF (<20) 02/14/23 17:20 Urine Mucus Slight /HPF (None Seen) 02/14/23 17:20 Urine Culture Reflexed Not needed 02/14/23 17:20 Urine Total Protein 2+ (Negative) H 02/14/23 17:20 ABO/Rh O POSITIVE 02/17/23 06:05 Solid Phase Ab Screen Negative 02/17/23 06:05 Crossmatch See Detail 02/17/23 06:05 Weight: 186 lb 1.6 oz Wound Present: No Closed Surgical Incision Present: No Negative Pressure Wound Therapy Present: No Physician Update: Hgb increased to 7.9 from 6.7 with one unit of PRBc. Her blood sugars is difficult to control. Start glimipride 2 mg twice daily. Bed mobility independent. SBA 250' with RW and up 10 steps. ADLs at SBA. Summary: Patient's care plan and custodial goals have been reviewed and revised as necessary. Please see the Rehabilitation Signature page for all necessary signatures.
[2023-02-18] MEDS: MUPIROCIN 2% OINT 22GM TUBE TOP SCH ×2 (09:17→20:00)
--- NOTE | 2023-02-18 13:49 | P.PN ---
Subjective Date of Service: 02/18/23 Subjective: No new changes Physical Examination - Vital Signs Temperature: 97.2 F Blood Pressure: 150/63 Pulse: 73 Respirations: 18 Pulse Ox (%): 94 - Physical Exam General: Other (Appears as her stated age) HEENT: Atraumatic, Normocephalic Neck: Supple Respiratory: Other (symmetric chest expansion) Cardiovascular: No rubs, No murmurs Gastrointestinal: Soft and benign, No guarding Musculoskeletal: No clubbing Integumentary: No warmth Neurological: Normal tone Urinary: Other (no bladder distention) External genitalia: Deferred Rectal: Deferred - Studies Laboratory Data (last 24 hrs) 02/17/23 23:50: WBC 9.00, Hgb 7.9 L D, Hct 23.3 L, Plt Count 248 Assessment And Plan - Plan 1. Acute kidney injury 2/2 rhabdomyolysis. Renal function improved somewhat. Received HD 02/11-02/13 for [facility] with volume overload & pulmo edema and worsening hyponatremia, acidosis, and hyperphosphatemia. Israel catheter placed on 02/11. no acute indication for age today. Recheck renal panel tomorrow to assess for further HD needs. Continue renal diet. 2. Rhabdomyolysis. Improved 3. Acidosis. Improved via HD. 4. Hypervolemia. TTE on 02/08/2023 showed normal LVEF at 72%. HD received as above. 5. Hyperphosphatemia. Improved, monitor 6. Anemia. Monitor CBC. 7. Hypertension. Continue current medication regimen. 8. Hyponatremia. Restrict fluid intake to less than 1.5 L per day. 9. Debility. PT/OT.
[2023-02-18] MEDS: GLIMEPIRIDE 2 MG TABLET PO SCH (16:54)
[2023-02-18] MEDS: DOCUSATE NA/SENNA CONC 1 TAB PO PRN (19:58)
[2023-02-18] MEDS: ROSUVASTATIN 10 MG TAB PO SCH (19:58)
[2023-02-19 05:09] LABS: Albumin 2.6 g/dL (3.4-5.0); Magnesium 1.8 mg/dL (1.6-2.4); Phosphorus 5.2 mg/dL (2.5-4.9)
[2023-02-19] MEDS: HEPARIN 5000 UNIT/ML 1 ML VIAL SQ SCH ×2 (06:59→20:30)
[2023-02-19] MEDS: FUROSEMIDE 40 MG TABLET PO SCH ×2 (08:12→16:40)
[2023-02-19] MEDS: FERROUS SULFATE 325 MG TAB PO SCH (08:14)
[2023-02-19] MEDS: FE SULF/FA/VIT B COMP & C TAB PO SCH (08:14)
[2023-02-19] MEDS: PALIPERIDONE 1.5 MG PO SCH (08:14)
[2023-02-19] MEDS: GLIMEPIRIDE 2 MG TABLET PO SCH ×2 (08:14→16:40)
[2023-02-19] MEDS: MUPIROCIN 2% OINT 22GM TUBE TOP SCH ×2 (08:15→20:05)
[2023-02-19] MEDS: INSULIN -REGULAR HUMAN 50 UNIT/0.5 ML ML SQ SCH ×5 (08:15→20:26)
--- NOTE | 2023-02-19 13:44 | P.PN ---
Subjective Date of Service: 02/19/23 Subjective: No new changes Physical Examination - Vital Signs Temperature: 96.8 F Blood Pressure: 142/64 Pulse: 76 Respirations: 19 Pulse Ox (%): 98 - Physical Exam General: Other (chronically ill-appearing) HEENT: Atraumatic, Normocephalic Neck: Supple Respiratory: Other (symmetric chest expansion) Cardiovascular: No rubs, No murmurs Gastrointestinal: Soft and benign, No guarding Musculoskeletal: No clubbing Integumentary: No warmth Neurological: Normal tone Urinary: Other (no bladder distention) External genitalia: Deferred Rectal: Deferred - Studies Laboratory Data (last 24 hrs) 02/19/23 04:15: Sodium 131 L, Potassium 4.0, BUN 52 H, Creatinine 2.81 H, Glucose 330 H, Phosphorus 5.2 H, Magnesium 1.8 Assessment And Plan - Plan 1. Acute kidney injury 2/2 rhabdomyolysis. Renal function improved somewhat. Received HD 02/11-02/13 for [facility] with volume overload & pulmo edema and worsening hyponatremia, acidosis, and hyperphosphatemia. Daniel catheter placed on 02/11. No acute indication for age today. Recheck renal panel tomorrow. If no worsening in renal fxn, may remove daniel cath tomorrow. Continue renal diet. 2. Rhabdomyolysis. Improved 3. Acidosis. Improved via HD. 4. Hypervolemia. TTE on 02/08/2023 showed normal LVEF at 72%. HD received as above. 5. Hyperphosphatemia. Improved, monitor 6. Anemia. Monitor CBC. 7. Hypertension. Continue current medication regimen. 8. Hyponatremia. Restrict fluid intake to less than 1.5 L per day. 9. Debility. PT/OT.
[2023-02-19] MEDS: ONDANSETRON 4 MG (ODT) TAB PO PRN (15:11)
[2023-02-19] MEDS: ROSUVASTATIN 10 MG TAB PO SCH (20:06)
[2023-02-20] MEDS: GUAIFENESIN/DM 5 ML UCUP PO PRN (00:33)
[2023-02-20] MEDS: HEPARIN 5000 UNIT/ML 1 ML VIAL SQ SCH ×2 (07:23→18:44)
[2023-02-20] MEDS: INSULIN -REGULAR HUMAN 50 UNIT/0.5 ML ML SQ SCH ×4 (07:55→20:28)
[2023-02-20] MEDS: PALIPERIDONE 1.5 MG PO SCH (07:55)
[2023-02-20] MEDS: FERROUS SULFATE 325 MG TAB PO SCH (07:56)
[2023-02-20] MEDS: FE SULF/FA/VIT B COMP & C TAB PO SCH (07:56)
[2023-02-20] MEDS: GLIMEPIRIDE 2 MG TABLET PO SCH ×2 (07:56→17:00)
[2023-02-20] MEDS: MUPIROCIN 2% OINT 22GM TUBE TOP SCH ×2 (09:10→19:41)
[2023-02-20] MEDS: FUROSEMIDE 40 MG TABLET PO SCH ×2 (09:11→17:02)
[2023-02-20] MEDS: LIDOCAINE 4% PATCH TOP SCH (16:40)
[2023-02-20] MEDS: ROSUVASTATIN 10 MG TAB PO SCH (19:17)
[2023-02-20] MEDS: DOCUSATE NA/SENNA CONC 1 TAB PO PRN (19:17)
[2023-02-20] MEDS ORDERED: INSULIN GLARGINE 100 UNIT/ML SQ SCH (21:00)
[2023-02-21] MEDS: ONDANSETRON 4 MG (ODT) TAB PO PRN (01:45)
[2023-02-21 06:35] LABS: Absolute Lymphocytes (CBC) 1.4 K/uL (0.7-4.9); Hematocrit 25.4 % (36.0-45.0); Lymphocytes % 14.3 % (15.3-44.8); MCV 86.1 fL (80-100); MPV 6.8 fL (7.6-11.3); RBC Red Blood Cell Count 2.95 M/uL (3.86-4.86)
[2023-02-21 06:53] LABS: Albumin 2.5 g/dL (3.4-5.0); Magnesium 2.1 mg/dL (1.6-2.4); Phosphorus 5.7 mg/dL (2.5-4.9); Potassium 4.4 mEq/L (3.5-5.1)
[2023-02-21] MEDS: HEPARIN 5000 UNIT/ML 1 ML VIAL SQ SCH ×2 (07:19→20:33)
[2023-02-21] MEDS: INSULIN -REGULAR HUMAN 50 UNIT/0.5 ML ML SQ SCH ×4 (08:09→20:34)
[2023-02-21] MEDS: PALIPERIDONE 1.5 MG PO SCH (08:10)
[2023-02-21] MEDS: FUROSEMIDE 40 MG TABLET PO SCH ×2 (08:12→17:16)
[2023-02-21] MEDS: FE SULF/FA/VIT B COMP & C TAB PO SCH (08:12)
[2023-02-21] MEDS: GLIMEPIRIDE 2 MG TABLET PO SCH ×2 (08:13→17:16)
[2023-02-21] MEDS: FERROUS SULFATE 325 MG TAB PO SCH (08:13)
[2023-02-21] MEDS: MUPIROCIN 2% OINT 22GM TUBE TOP SCH ×2 (11:54→20:35)
[2023-02-21] MEDS: LIDOCAINE 4% PATCH TOP SCH (11:54)
[2023-02-21] MEDS: ROSUVASTATIN 10 MG TAB PO SCH (20:33)
[2023-02-21] MEDS: LACTULOSE 20 GM/30 ML UCUP PO PRN (20:33)
[2023-02-21] MEDS: INSULIN GLARGINE 100 UNIT/ML SQ SCH (20:35)
--- NOTE | 2023-02-22 01:34 | PN ---
Date of Progress Note: 02/21/2023 Time Of Service: 1:30 p.m. Subjective: Ms. Mahoney is resting comfortably in a chair beside the bed. She is in no significant distress. She is happy with her progress and appears to be discharged home soon. She denies any cu rrent lightheadedness. No new complaints. Review of Systems: Denies any lightheadedness while sitting in a chair. No fevers, chills. No rash. No active psychia tric issues. No gastrointestinal or genitourinary complaints. Physical Examination: Vital Signs: Blood pressure 147/62, pulse 76, respiratory rate 16, temperature 97.2, O2 saturation 9 4%. General: Ms. Mahoney is sitting in chair beside the bed. HEENT: She is normocephalic, atraumatic. Sclerae anicteric. Oropharynx moist. Neck: Supple. Chest: Clear. Abdomen: Soft. Extremities: Show no significant edema or cyanosis. She does have improved strength in the lower an d upper extremities. Laboratory Studies: White blood cell count 10; hemoglobin improved to 8.4, which is highest since he has been in hospital; platelets 216. Sodium 125; potassium 4.4; chloride 89; carbon dioxide 30; BUN 69; creatinine 3.16; glucose still very elevated, ranging up to 326; calcium 8.6. Phosphorus 5.7, m agnesium 2.1. Prealbumin 2.5. Current Functional Status: Today, she used the handrails in the hallway to do sidestepping left and right, covered 12 feet 4 tines, did calf raises 5 repetitions 2 sets, and ambulated in the hallway 25 0 feet, another 125 feet, and 100 feet using a rolling walker with standby assistance just for safety awareness. With her occupational therapy, she noted showering independently, demonstrated good wm ding balance, and good trunk flexion for donning her socks while seated, independent toilet hygiene w ith good safety. With speech, demonstrated use of working memory skills during a sequencing tasks wi th 90% accuracy. Problem-solving skills demonstrated for ADL situations of preparing for home regard ing safety with 90% accuracy and minimum assistance. Progress Towards Rehabilitation Goals: Ms. Mahoney is making good progress towards her goals of bec oming independent with upper and lower body dressing, toileting, showering, transferring, ambulating 250 feet with independence and up and down 10 steps with independence along with performing cognitive functioning including memory, language, comprehension with independence. Assessment: Ms. Mahoney is a 67-year-old patient in the rehabilitation unit with rhabdomyolysis, ac chipewwa on chronic renal failure, [id number] anemia, pulmonary edema, hypertension, schizophrenia , dyslipidemia, diabetes mellitus. Plan: 1.Continue physical, occupational, and speech therapy 3.5 hours 5/7 days. 2.Renal service is following her for renal insufficiency and renal failure and will make appropriate medications or treatment as needed. 3.After receiving a unit of blood. She has done well. Hemoglobin is stable. 4.Continue nebulizers for COPD. 5.Continue Lasix for volume overload. 6.Senokot S for constipation. 7.Crestor for dyslipidemia. 8.Heparin twice daily for DVT prophylaxis and Colace and Senokot for constipation. Comorbidities That Continue To Impact Rehabilitation Process: She is doing well. She does have a re nal failure, which the renal service are addressing and her anemia is better and those are less impac table and she is actually more energetic and doing well. LB/MODL Voice ID: [id number] Report ID: [id number]
--- NOTE | 2023-02-22 02:09 | PN ---
Date of Progress Note: 02/21/2023 Chief Complaint: Acute kidney injury secondary to rhabdomyolysis. Subjective: Renal function is somewhat improved; although over 24 hours, the renal function has decl ined. The patient was treated with dialysis for volume control and to obtain metabolic clearance. C urrently, she is nonoliguric, although she does not have polyuric urine output. Hyponatremia is due to volume overload and the patient developed hyponatremia today. A Israel catheter was placed on Ap ril 14. The patient received dialysis and blood work obtained today showed hyponatremia and worsenin g of the renal function. Plan is to obtain tunneled dialysis catheter and re-evaluate lab work tomor row for possible dialysis when a tunneled dialysis catheter is available. Rhabdomyolysis improved, acidosis improved with treatment, and plan is to continue dialysis if renal function does not improve. Review of Systems: Denies fever or chills. Legs edema has improved. Physical Examination: Lungs: Normal respiratory effort. Heart: S1, S2. Abdomen: Soft, benign. Extremities: Some edema present. Impression And Plan: 1.Fluid overload, hyponatremia, dilutional. Continue p.o., fluid restriction. Evaluate blood work tomorrow. Plan is to resume dialysis if renal function does not improve. 2.The patient will also have tunneled dialysis catheter. 3.Rhabdomyolysis improved. Continue to avoid nephrotoxic medication. Monitor CK level. Acidosis currently controlled. Dialysis will be done if renal function does not i mprove. BOOTH/MODL Voice ID: [id number] Report ID: [id number]
[2023-02-22 05:49] LABS: Albumin 2.6 g/dL (3.4-5.0); Potassium 4.2 mEq/L (3.5-5.1)
[2023-02-22] MEDS: MUPIROCIN 2% OINT 22GM TUBE TOP SCH ×2 (08:00→20:26)
[2023-02-22] MEDS: LIDOCAINE 4% PATCH TOP SCH (08:29)
[2023-02-22] MEDS: FUROSEMIDE 40 MG TABLET PO SCH ×2 (08:30→16:32)
[2023-02-22] MEDS: FERROUS SULFATE 325 MG TAB PO SCH (08:30)
[2023-02-22] MEDS: FE SULF/FA/VIT B COMP & C TAB PO SCH (08:30)
[2023-02-22] MEDS: GLIMEPIRIDE 2 MG TABLET PO SCH ×2 (08:30→16:33)
[2023-02-22] MEDS: PALIPERIDONE 1.5 MG PO SCH (08:31)
[2023-02-22] MEDS: INSULIN -REGULAR HUMAN 50 UNIT/0.5 ML ML SQ SCH ×4 (08:33→20:27)
[2023-02-22] MEDS: HEPARIN 5000 UNIT/ML 1 ML VIAL SQ SCH ×2 (08:36→20:25)
[2023-02-22] MEDS: ONDANSETRON 4 MG (ODT) TAB PO PRN (12:17)
[2023-02-22] MEDS: GUAIFENESIN/DM 5 ML UCUP PO PRN ×2 (14:56→20:40)
--- NOTE | 2023-02-22 15:07 | PN ---
Date of Progress Note: 02/22/2023 Subjective: The patient was admitted with acute kidney injury, deconditioning, fall, and rhabdo. The patient has advanced kidney disease. Kidney function has worsened. For that reason, the patient received 3 sessions of dialysis for clearance. Physical Examination: Vital Signs: Blood pressure 134/70, pulse of 82, afebrile. Chest: Faint rales on the base. Heart: S1, S2. Regular. Systolic murmur. Abdomen: Soft, nontender. Morbid obesity. Extremity: Trace edema. Neurologic: Alert. No focality. Laboratory Data: Hemoglobin 8.4. Sodium 128, potassium 4.2, bicarb 29, BUN 75, creatinine 3.1, calcium 9, phosphorus 6, albumin 2.6, corrected calcium is 10.2. Current Medications: Include; 1. Ferrous sulfate. 2. Clonidine p.r.n. 3. Atorvastatin. 4. Lasix 60 b.i.d. 5. Lactulose. 6. Insulin. 7. Requip. Assessment And Plan: 1. Acute kidney injury on advanced chronic kidney disease secondary to cardiorenal, normal to wet side. No uremic symptoms. No hyperkalemia. I do not see the need to continue on dialysis right now. The patient needs close monitoring. I am going to go ahead and increase Lasix to 80 mg b.i.d. Okay from the Renal standpoint for discharge to follow up in the office in 2 weeks with chemistry. Advised the patient for fluid restriction. We will increase Lasix 80 mg. The patient verbalized understanding. Explained to the patient risks, benefits, and alternatives between continued currently on the dialysis or close monitoring. The patient verbalized understanding. I am going to go ahead and discontinue temporary hemodialysis catheter. 2. Hypertension. We will utilize blood pressure for more diuresis. Increase Lasix to 80 mg b.i.d. 3. Congestive heart failure with exacerbation. We will continue optimizing diuresis. 4. Rhabdomyolysis, resolved. 5. Secondary hyperparathyroidism. The patient is going to need calcitriol as outpatient. 6. Hyponatremia, dilutional. We will increase the Lasix. Time spent examining the patient [id number], reviewing data, lab and radiology, placing order, discussing the case with the patient, discussing the case with the front desk team member including nurse more than 35 minutes GILDARDO Voice ID: [id number] Report ID: [id number] MTDGuillermo
[2023-02-22] MEDS: ROSUVASTATIN 10 MG TAB PO SCH (20:25)
[2023-02-22] MEDS: INSULIN GLARGINE 100 UNIT/ML SQ SCH (20:27)
--- NOTE | 2023-02-22 23:04 | PN ---
Date of Progress Note: 02/22/2023 [id number] Progress Note Visit Time Of Service: 1:30 p.m. Subjective: Ms. Mahoney is resting in bed, doing well. She is ready to be discharged home as she i s doing great and she has no new complaints. Review of Systems: She did mention some mild lightheadedness as she was doing her therapy. Otherwise, no fevers, chills , nausea, or vomiting. No significant myalgias or arthralgias. Physical Examination: Vital Signs: Blood pressure 130/70, pulse 82, respiratory rate 16, temperature 97.2, and oxygen satu ration 96%. General: Ms. Mahoney is resting in a chair besides the bed. HEENT: She is normocephalic, atraumatic. Sclerae anicteric. Her IJ on the right will be removed to day as she will be going home tomorrow and it should be noted that Renal Service will be following he r outpatient, but no new interventions as required by them. Neurologic: She has improved strength in the upper and lower extremities. No focal deficits are not ed. No significant abnormalities in terms of lung function or on her abdominal examination. Laboratory Studies: Complete blood count with differential done yesterday shows a low hemoglobin of 8.4; however, that is the highest since she has been hospitalized. White blood cell count 10 and nader telets 216. Today blood sugars ranged from 198 to 327. X-ray/imaging: No new x-rays or imaging. Medications: Her blood sugars have been elevated. Her Semglee insulin has been increased slowly. S he is now on 10 units at bedtime, she will likely require a higher dose at least 15 and perhaps 20 un its at bedtime. She is on Amaryl 4 mg twice daily. However, these may be adjusted outpatient by her primary care physician. She did have Lasix increased to 20 mg twice daily by the Renal Service and will be continued on discharge. Continue Colace and ferrous sulfate. Continue lidocaine patch, whic h is 4% topically daily and Hemocyte Plus. Continue with Crestor 10 mg at bedtime and Senokot 2 tabl ets at night for constipation. Current Functional Status: Today she did stand and pivot transfers independently with a rolling walk er and performed toilet transfers independently and supine sit transfer done independently. With gai t training, she covered 250 twice and 100 feet once with standby assistance using a rolling walker. She also did 175 feet twice with standby assist using a quad cane. She ascended and descended 15 esa ps with standby assistance using bilateral handrails. With occupational therapy, she completed stand ing balance exercises with a rolling walker and improved dynamic standing balance with her activities of daily living. With speech, she demonstrated improved use of functional math skills doing everyda y math problem solving. She scored 85% accuracy with minimum assistance on this task. With working memory, she demonstrated 95% accuracy with 5 of 5 unrelated words recalled after 5 minutes. Concentr ation and speech had increased to 85% accuracy with minimum assistance. Progress Towards Rehabilitation Goals: Ms. Mahoney has made excellent progress towards her rehabili tation goals of becoming independent with upper and lower body dressing, transferring, toileting, haroldo wering, ambulating over 250 feet with a rolling walker up and up 15 steps with modified independence. Also cognitive functioning improving towards modified independence and includes speech, comprehensi on, expression, and memory. Assessment: Ms. Mahoney is a 67-year-old patient in the rehabilitation unit with rhabdomyolysis, ac yxd-[id number] renal failure, mild severe anemia, pulmonary edema, hypertension, schizophrenia, dysli pidemia, and diabetes mellitus. She has made excellent progress with her physical, occupational, and speech therapy. Plan: 1.Continue with physical, occupational, and speech therapy with plan to discharge in the morning. 2.She is followed by the Renal Service that will occur outpatient as well. 3.Continue nebulizers for COPD. 4.Continue increased dose of Lasix for volume overload. 5.Continue Senokot-S for constipation. 6.Crestor for dyslipidemia. 7.Heparin for deep vein thrombosis prophylaxis. 8.Colace and Senokot for constipation. Comorbids That Continue To Impact Rehabilitation Process: She is doing well, but she does have eleva pascale blood sugars and will require further adjustment of her Semglee insulin and oral hypoglycemics on an outpatient basis to help facilitate better blood sugar controls. Again that will be continued on an outpatient basis. LB/MODL Voice ID: [id number] Report ID: [id number]
[2023-02-23] MEDS: ACETAMINOPHEN 500 MG TAB PO PRN (04:15)
[2023-02-23 05:05] LABS: Albumin 2.5 g/dL (3.4-5.0); Phosphorus 5.9 mg/dL (2.5-4.9); Potassium 4.4 mEq/L (3.5-5.1)
[2023-02-23] MEDS: FUROSEMIDE 40 MG TABLET PO SCH (07:51)
[2023-02-23] MEDS: FERROUS SULFATE 325 MG TAB PO SCH (07:51)
[2023-02-23] MEDS: LIDOCAINE 4% PATCH TOP SCH (07:51)
[2023-02-23] MEDS: GLIMEPIRIDE 2 MG TABLET PO SCH (07:52)
[2023-02-23] MEDS: FE SULF/FA/VIT B COMP & C TAB PO SCH (07:52)
[2023-02-23] MEDS: PALIPERIDONE 1.5 MG PO SCH (07:52)
[2023-02-23] MEDS: INSULIN -REGULAR HUMAN 50 UNIT/0.5 ML ML SQ SCH (07:53)
[2023-02-23] MEDS: MUPIROCIN 2% OINT 22GM TUBE TOP SCH (07:53)
[2023-02-23 07:54] VITALS: BP 133/64
[2023-02-23] MEDS: HEPARIN 5000 UNIT/ML 1 ML VIAL SQ SCH (07:57)
[2023-02-23 07:59] VITALS: TEMP 97.2
== END 2023-02-23 10:30 | disposition home health service (06) | DRG 558 ==
LOC: 5TH 02-14 10:45
PROVIDERS: ADMIT Psychiatry & Neurology Neurology with Special Qualifications in Child Neurology; ATTEND Psychiatry & Neurology Neurology with Special Qualifications in Child Neurology
PROC: 30233N1 Transfusion of Nonautologous Red Blood Cells into Peripheral Vein, Percutaneous Approach (ICD-10-PCS; principal; 2023-02-17)
DX: M62.82 Rhabdomyolysis (principal); N17.9 Acute kidney failure, unspecified; E87.1 Hypo-osmolality and hyponatremia; E87.20 Acidosis, unspecified; N25.81 Secondary hyperparathyroidism of renal origin; E78.5 Hyperlipidemia, unspecified; F31.9 Bipolar disorder, unspecified; F20.9 Schizophrenia, unspecified; D64.9 Anemia, unspecified; K59.00 Constipation, unspecified; E83.39 Other disorders of phosphorus metabolism; E87.70 Fluid overload, unspecified; R53.81 Other malaise; E11.22 Type 2 diabetes mellitus with diabetic chronic kidney disease; N18.9 Chronic kidney disease, unspecified; I12.9 Hypertensive chronic kidney disease with stage 1 through stage 4 chronic kidney disease, or unspecified chronic kidney disease
CPT/HCPCS: 36415; 80048; 80069; 81001; 82040; 82947; 83735; 84134; 85025; 86850; 86900; 86901; 86920; 87086; 87088; 92507; 92523; 97110; 97112; 97116; 97129; 97161; 97165; 97530; J1644; J1815; J2001; J7050; P9016; Q0162

== ENCOUNTER 2023-07-25 19:37 | Inpatient (IN) | payer OTHER ==
--- OUTSIDE RECORDS SUMMARY | 2023-07-25 19:43 | XMS REPORT | Continuity of Care Document ---
:1955 Author Organization [facility] t Address [address] [facility]. [address] [place] [address] Care Team Providers Name Role Phone ROSSANA PIERRE Primary Care Physician Unavailable ASHTYN DUKE Attending Clinician Unavailable Rossana Pierre MD Attending Clinician Doctor Unassigned, [place] Attending Clinician Unavailable Ana Laura Correa Attending Clinician TOMMIE BARNES [...] Expiration Date S angeli MEDICARE PART A [id number] 1995 \\T\\ B 00:00:00 MEDICAID [facility] [id number] 2015 00:00:00 Problems Condition Condition Condition Status Onset Resolution Last Treating Co mments Source Name Details Category Date Date Treatment Clinician Date Diabetes Diabetes Disease Active Unive rs 05-02 ity of 00:00: [address] Branch Essential Essential Disease Active Uni vers hypertensi hypertensi 05-02 it y of on on 00:00: [place] 00 Medical Branch Hyperlipid Hyperlipid Disease Active U nivers emia emia 05-02 ity of 00:00: [place] 00 Medical Branch Psychiatri Psychiatri Disease Active U nivers c disorder c disorder it y of [place] [facility] Allergies, Adverse Reactions, Alerts Allergy [...] Medical Branch PROPOXYP DRUG Active Unknown-Cmnt Un guille HENE HCL INGREDI 6-13 ity of 00:00: [place] 00 Medical Branch DIPHENHY DRUG Active Other-Cmnt Univ ers DRAMINE INGREDI 6-13 ity of 00:00: [place] 00 Medical Branch Diphenhy Propensi Active Other - See U nivers dramine ty to comments 6-13 ity of adverse 00:00: [place] reaction 00 Medical s Branch Benadryl Propensi Active Unknown - Uni [...] Current University of 00:00:00 00:00:00 non-drinker of [facility] alcohol (finding) [place] Tobacco use and 2018-04-12 2018-04-12 Smokeless tobacco Un iversity of exposure 00:00:00 00:00:00 non-user [facility] Sex Ass[birth year] At [birth year] Universit y of 00:00:00 00:00:00 [facility] Smoking Status Start Date Stop Date Source Never smoked tobacco [facility] Medications Ordered Filled Start Stop Current Ordering Indication Dosage Frequency Signature Comments Components Source Medication Medication Date Date Medication? Clinician (SIG) Name Name Paliperidon Yes 1{tbl} Take 1 Un guille e 1.5 mg 5-05 tablet by ity of TR24 00:00: mouth [place] 00 every Medical morning. Branch LANTUS Yes INJECT 10 Univer s U-100 4-27 UNITS ity of INSULIN 100 00:00: UNDER THE [place] unit/mL 00 SKIN EVERY Medica l solution NIGHT AT [place] BEDTIME. FEROSUL 325 Yes 325mg Take 1 Uni vers mg (65 mg 4-26 tablet by ity o f iron) 00:00: mouth in [place] tablet 00 the Medical morning Branch and 1 tablet in the evening. furosemide 0 Yes 80mg Take 1 Unive rs 80 mg 4-26 tablet by ity of tablet 00:00: mouth in [place] 00 the Medical morning Branch and 1 tablet in the evening. glimepiride 0 Yes 4mg Take 1 Univ ers 4 mg tablet 4-26 tablet by ity of 00:00: mouth in [place] 00 the Medical morning Branch and 1 tablet in the evening. lactulose Yes TAKE 30 ML Un guille 10 gram/15 4-26 BY MOUTH ity o f mL solution 00:00: TWICE [place] 00 DAILY FOR Medical 2 WEEKS Branch NEEDED FOR CONSTIPATI ON BD LILIANA Yes USE Univ ers GEN PEN 8-23 DIRECTED ity of NEEDLE 32 00:00: FOUR TIMES [place] gauge x 00 DAILY Medical " Ndle Branch BD LILIANA 2ND Yes USE Univ ers GEN PEN 8-23 DIRECTED ity of NEEDLE 32 00:00: FOUR TIMES [place] gauge x 00 DAILY Medical 5/32" Ndle Branch BD LILIANA 2ND Yes USE Univ ers GEN PEN 8-23 DIRECTED ity of NEEDLE 32 00:00: FOUR TIMES [place] gauge x 00 DAILY Medical 5/32" Ndle Branch BD LILIANA 2ND Yes USE Univ ers GEN PEN 8-23 DIRECTED ity of NEEDLE 32 00:00: FOUR TIMES [place] gauge x 00 DAILY Medical 5/32" Ndle Branch BD LILIANA 2ND Yes USE Univ ers GEN PEN 8-23 DIRECTED ity of NEEDLE 32 00:00: FOUR [place] gauge x 00 DAILY Medical " Ndle Branch pravastatin Yes [id number] 40mg Take 1 Univers 40 mg 8-02 tablet by ity of tablet 00:00: mouth at [address] pravastatin 0 Yes [id number] 40mg TAKE 1 Univers 40 mg 8-02 TABLET BY ity of tablet 00:00: MOUTH AT [place] [facility] pravastatin 0 Yes [id number] 40mg TAKE 1 Univers 40 mg 8-02 TABLET BY ity of tablet 00:00: MOUTH AT [place] [facility] pravastatin 0 Yes [id number] 40mg TAKE 1 Univers 40 mg 8-02 TABLET BY ity of tablet 00:00: MOUTH AT [place] [facility] pravastatin 0 Yes [id number] 40mg TAKE 1 Univers 40 mg 8-02 TABLET BY ity of tablet 00:00: MOUTH AT [place] [facility] pravastatin 0 Yes [id number] 40mg TAKE 1 Univers 40 mg 8-02 TABLET BY ity of tablet 00:00: MOUTH AT [place] [facility] pravastatin 0 Yes [id number] 40mg TAKE 1 Univers 40 mg 8-02 TABLET BY ity of tablet 00:00: MOUTH AT [place] [facility] pravastatin 0 Yes [id number] 40mg TAKE 1 Univers 40 mg 8-02 TABLET BY ity of tablet 00:00: MOUTH AT [place] [facility] pravastatin 0 2021- No [id number] 40mg Take 1 Univers 40 mg 06-01 tablet by ity of tablet 00:00: 00:00 mouth at [place] 00 :00 bedtime. Medical Branch paliperidon Yes INJECT Univ ers e palm, 6-04 INTO THE ity of 3-month, 00:00: MUSCLE [place] (INVEGA 00 EVERY 21 Medical TRINZA) 273 WEEKS. Branch mg/0.88 mL injection syringe Insulin Yes [id number] Take 25 Un guille Detemir 5-28 units AM ity of (LEVEMIR 00:00: and 15 [place] FLEXTOUCH 00 units Medical U-100 evening Branch INSULN) 100 unit/mL (3 mL) injection Insulin Yes [id number] Take 25 Un guille Detemir 5-28 units AM ity of (LEVEMIR 00:00: and 15 [place] FLEXTOUCH 00 units Medical U-100 evening Branch INSULN) 100 unit/mL (3 mL) injection Insulin Yes [id number] Take 25 Un guille Detemir 5-28 units AM ity of (LEVEMIR 00:00: and 15 [place] FLEXTOUCH 00 units Medical U-100 evening Branch INSULN) 100 unit/mL (3 mL) injection Insulin Yes [id number] Take 25 Un guille Detemir 5-28 units AM ity of (LEVEMIR 00:00: and 15 [place] FLEXTOUCH 00 units Medical U-100 evening Branch INSULN) 100 unit/mL (3 mL) injection Insulin Yes [id number] Take 25 Un guille Detemir 5-28 units AM ity of (LEVEMIR 00:00: and 15 [place] FLEXTOUCH 00 units Medical U-100 evening Branch INSULN) 100 unit/mL (3 mL) injection Insulin Yes [id number] Take 25 Un guille Detemir 5-28 units AM ity of (LEVEMIR 00:00: and 15 [place] FLEXTOUCH 00 units Medical U-100 evening Branch INSULN) 100 unit/mL (3 mL) injection Insulin Yes [id number] Take 25 Un guille Detemir 5-28 units AM ity of (LEVEMIR 00:00: and 15 [place] FLEXTOUCH 00 units Medical U-100 evening Branch INSULN) 100 unit/mL (3 mL) injection Insulin 0 Yes [id number] Take 25 Un guille Detemir 5-28 units AM ity of (LEVEMIR 00:00: and 15 [place] FLEXTOUCH 00 units Medical U-100 evening Branch INSULN) 100 unit/mL (3 mL) injection Insulin 0 Yes [id number] Take 25 Un guille Detemir 5-28 units AM ity of (LEVEMIR 00:00: and 15 [place] FLEXTOUCH 00 units Medical U-100 evening Branch INSULN) 100 unit/mL (3 mL) injection Insulin Yes USE Univers [place], 5-13 DIRECTED ity of Disposable, 00:00: FOUR TIMES [place] (LILIANA PEN 00 DAILY Medical NEEDLE) 32 Branch gauge x 5/32" Ndle Insulin 0 Yes USE Univers [place], 5-13 DIRECTED ity of Disposable, 00:00: FOUR TIMES [place] (LILIANA PEN 00 DAILY Medical NEEDLE) 32 Branch gauge x 5/32" Ndle Insulin 2020-0 Yes USE Univers [place], 5-13 DIRECTED ity of Disposable, 00:00: FOUR TIMES [place] (LILIANA PEN 00 DAILY Medical NEEDLE) 32 Branch gauge x 5/32" Ndle Insulin 2020-0 Yes USE Univers [place], 5-13 DIRECTED ity of Disposable, 00:00: FOUR TIMES [place] (LILIANA PEN 00 DAILY Medical NEEDLE) 32 Branch gauge x 5/32" Ndle Insulin 2020-0 202- No USE Univers [place], 513 -23 DIRECTED ity of Disposable, 00:00: 00:00 FOUR TIMES [place] (LILIANA PEN 00 :00 DAILY Medical NEEDLE) 32 Branch gauge x 5/32" Ndle lisinopriL 2020-0 Yes [id number] 2.5mg Take 1 Univers 2.5 mg 5-12 tablet by ity of tablet 00:00: mouth [place] 00 daily. Medical Branch lisinopriL 2020-0 Yes [id number] 2.5mg Take 1 Univers 2.5 mg 5-12 tablet by ity of tablet 00:00: mouth [place] 00 daily. Medical Branch lisinopriL 2020-0 Yes [id number] 2.5mg Take 1 Univers 2.5 mg 5-12 tablet by ity of tablet 00:00: mouth [place] 00 daily. Medical Branch lisinopriL 2020-0 Yes [id number] 2.5mg Take 1 Univers 2.5 mg 5-12 tablet by ity of tablet 00:00: mouth [place] 00 daily. Medical Branch lisinopriL 2020-0 Yes [id number] 2.5mg Take 1 Univers 2.5 mg 5-12 tablet by ity of tablet 00:00: mouth [place] 00 daily. Medical Branch lisinopriL 2020-0 Yes [id number] 2.5mg Take 1 Univers 2.5 mg 5-12 tablet by ity of tablet 00:00: mouth [place] 00 daily. Medical Branch lisinopriL 2020-0 Yes [id number] 2.5mg Take 1 Univers 2.5 mg 5-12 tablet by ity of tablet 00:00: mouth [place] 00 daily. Medical Branch lisinopriL 2020-0 Yes [id number] 2.5mg Take 1 Univers 2.5 mg 5-12 tablet by ity of tablet 00:00: mouth [place] 00 daily. Medical Branch lisinopriL 2020-0 Yes [id number] 2.5mg Take 1 Univers 2.5 mg 5-12 tablet by ity of tablet 00:00: mouth [place] 00 daily. Medical Branch MICRO THIN 0 Yes TEST EVERY U nivers LANCETS 33 4-19 MORNING ity of gauge Misc 00:00: [place] 00 Medical Branch TRUE METRIX 0 Yes USE Univ ers GLUCOSE 4-19 DIRECTED [...] 00:00: [place] 00 Medical Branch TRUE METRIX 2021-0 Yes USE Univ ers GLUCOSE 4-19 DIRECTED [...] 00:00: [place] 00 Medical Branch TRUE METRIX 0 Yes USE Univ ers GLUCOSE 4-19 DIRECTED ity of TEST STRIP 00:00: EVERY [place] strip 00 MORNING Medical Branch MICRO THIN 0 Yes TEST EVERY U nivers LANCETS 33 4-19 MORNING ity of gauge Misc 00:00: [place] 00 Medical Branch TRUE METRIX 0 Yes USE Univ ers GLUCOSE 4-19 DIRECTED ity of TEST STRIP 00:00: EVERY [place] strip 00 MORNING Medical Branch MICRO THIN 0 Yes TEST EVERY U nivers LANCETS 33 [...] [place] strip 00 MORNING Medical Branch PRAVASTATIN 2020-0 Yes [id number] TAKE 1 Univers 40 mg 1-28 TABLET BY ity of tablet 00:00: MOUTH AT [place] 00 BEDTIME Medical Branch PRAVASTATIN 2020-0 2021- No [id number] TAKE 1 Univers 40 mg 1-28 - TABLET BY ity of tablet 00:00: 00:00 MOUTH AT [place] 00 :00 BEDTIME Medical Branch paliperidon 2018- Yes 273mg 273 mg by Univers e [...] h mg/0.875 mL months. injection syringe Blood-Gluco Yes Use as Univ ers se Meter 07-06 directed ity of (BLOOD 00:00: to check [place] GLUCOSE 00 blood Medical MONITORING) sugar Branch Kit DX:E11.9, please give what insurance prefers Blood-Gluco 2019-0 Yes Use as Univ ers se Meter 07-06 directed ity of (BLOOD 00:00: to check [place] GLUCOSE 00 blood Medical MONITORING) sugar Branch Kit DX:E11.9, please give what insurance prefers Blood-Gluco 2019-0 Yes Use as Univ ers se Meter 07-06 directed ity of (BLOOD 00:00: to check [place] GLUCOSE 00 blood Medical MONITORING) sugar Branch Kit DX:E11.9, please give what insurance prefers Blood-Gluco 2019-0 Yes Use as Univ ers se Meter 07-06 directed ity of (BLOOD 00:00: to check [place] GLUCOSE 00 blood Medical MONITORING) sugar Branch Kit DX:E11.9, please give what insurance prefers Blood-Gluco 2019-0 Yes Use as Univ ers se Meter 07-06 directed ity of (BLOOD 00:00: to check [place] GLUCOSE 00 blood Medical MONITORING) sugar Branch Kit DX:E11.9, please give what insurance prefers Blood-Gluco 2019-0 Yes Use as Univ ers se Meter 07-06 directed ity of (BLOOD 00:00: to check [place] GLUCOSE 00 blood Medical MONITORING) sugar Branch Kit DX:E11.9, please give what insurance prefers Blood-Gluco 2019-0 Yes Use as Univ ers se Meter 07-06 directed ity of (BLOOD 00:00: to check [place] GLUCOSE 00 blood Medical MONITORING) sugar Branch Kit DX:E11.9, please give what insurance prefers Blood-Gluco 2019-0 Yes Use as Univ ers se Meter 07-06 directed ity of (BLOOD 00:00: to check [place] GLUCOSE 00 blood Medical MONITORING) sugar Branch Kit DX:E11.9, please give what insurance prefers Blood-Gluco 2019-0 Yes Use as Univ ers se Meter 906 directed ity of (BLOOD 00:00: to check [place] GLUCOSE 00 blood Medical MONITORING) sugar Branch Kit DX:E11.9, please give what insurance prefers Lancets 2019-0 Yes [id number] Check Univ ers (LANCETS, 5-21 blood ity of SUPER THIN) 00:00: glucose [place] as Misc 00 TID and Medical PRN when Branch symptomati c. Lancets 2019-0 Yes [id number] Check Univ ers (LANCETS, 5-21 blood ity of SUPER THIN) 00:00: glucose [place] as Misc 00 TID and Medical PRN when Branch symptomati c. Lancets 2019- Yes [id number] Check Univ ers (LANCETS, 5-21 blood ity of SUPER THIN) 00:00: glucose [place] as Misc 00 TID and Medical PRN when Branch symptomati c. Lancets 2019- Yes [id number] Check Univ ers (LANCETS, 5-21 blood ity of SUPER THIN) 00:00: glucose [place] Misc 00 TID and Medical PRN when Branch symptomati c. Lancets 2019- Yes [id number] Check Univ ers (LANCETS, 5-21 blood ity of SUPER THIN) 00:00: glucose [place] as Misc 00 TID and Medical PRN when Branch symptomati c. Lancets 2019- Yes [id number] Check Univ ers (LANCETS, 5-21 blood ity of SUPER THIN) 00:00: glucose [place] Misc 00 TID and Medical PRN when Branch symptomati c. Lancets 2019- Yes [id number] Check Univ ers (LANCETS, 5-21 blood ity of SUPER THIN) 00:00: glucose [place] Misc 00 TID and Medical PRN when Branch symptomati c. Lancets 2019- Yes [id number] Check Univ ers (LANCETS, 5-21 blood ity of SUPER THIN) 00:00: glucose [place] Misc 00 TID and Medical PRN when Branch symptomati c. Procedures Procedure Date / Time Performed Performing Clinician [facility] e REFERRAL- 2022-08-04 05:01:00 Doctor Unassigned, No [facility] [place] REQUEST/RESPONSE Name Medical Branch REFERRAL- 2022-06-25 05:01:00 Doctor Unassigned, No [facility] [place] REQUEST/RESPONSE Name Medical Branch Encounters Start End Encounter Admission Attending Care Care Encounter Source Date/Time Date/Time Type Type Clinicians Facility Department ID 2021-08-29 Emergency [facility] [id number] Univers 22:33:09 ity of [facility] 2023-07-19 2023-07-19 Outpatient SFA [facility] [id number] Mario 10:04:56 10:04:56 [id number] Jeny Rea 2023-06-13 2023-06-13 Outpatient SFA [facility] [id number] Mario 13:25:29 13:25:29 [id number] [place] 2023-06-09 2023-06-09 Outpatient R [facility] [id number] Univers 09:40:00 09:40:00 , ASHTYN it y of [facility] 2023-06-02 2023-06-02 Outpatient R [facility] [id number] Univers 11:20:00 11:20:00 , ASHTYN it y of [facility] 2023-05-06 2023-05-06 Outpatient [facility] [id number] Mario 09:54:36 09:54:36 [id number] [facility] 2023-04-26 2023-04-26 [facility] [id number] [facility] 00:00:00 00:00:00 [facility] [id number] [facility] [id number] Frankie as RADHA?BLEA [id number] Wy antonladi [address] MEDICAL OFFICE [facility] 2023-04-07 2023-04-07 Outpatient R [facility] [id number] Univers 14:00:00 14:00:00 , ASHTYN it y of [facility] 2023-04-07 2023-04-07 Outpatient R [facility] [id number] [facility] 14:00:00 14:00:00 , ASHTYN it y of [facility] 2023-03-29 2023-03-29 Ryan [facility] [id number] [facility] 00:00:00 00:00:00 [facility] [id number] it y of [place] [id number] Frankie as RADHA?BLEA [id number] Wy margaret [address] MEDICAL OFFICE [facility] 2023-01-11 2023-01-11 Outpatient [facility] [id number] Mario 09:42:19 09:42:19 [id number] F Álvaro 2022-11-25 2022-11-25 Outpatient [facility] [id number] Mario 10:17:25 10:17:25 [id number] [place] 2022-08-17 2022-08-17 Outpatient [facility] [id number] Mario 13:14:52 13:14:52 [id number] [place] 2022-08-05 2022-08-05 Outpatient [facility] [id number] Mario 08:32:26 08:32:26 [id number] F Álvaro 2022-08-04 2022-08-04 Orders Doctor ESCALONA [id number] [id number] Univers 00:00:00 00:00:00 Only Unassigned, TISH [id number] ity of [place] [facility] [id number] Frankie as [phone] [address] 2022-06-25 2022-06-25 Orders Doctor IQRA 1.2.840.114 [id number] Univers 00:00:00 00:00:00 Only Unassigned, TISH [id number] ity of [place] [facility] [id number] Frankie as [id number] [address] 2022-06-21 2022-06-21 Critical access hospital [id number] Univers 00:00:00 00:00:00 Rossana HEALTH [id number] it y of Edward [place] [id number] Frankie as RADHA?BLEA [id number] [address] OFFICE [facility] 2022-06-01 2022-06-01 Critical access hospital [id number] Univers 00:00:00 00:00:00 Rossana HEALTH [id number] it y of [place] [id number] Frankie as RADHA?BLEA [id number] [address] OFFICE [facility] 2022-06-01 2022-06-01 [facility] 1.2.840.114 [id number] Univers 00:00:00 00:00:00 Rossana HEALTH [id number] it y of [place] [id number] Frankie as RADHA?BLEA [id number] [address] OFFICE [facility] 2022-05-31 2022-05-31 Ryan [facility] 1.2.840.114 [id number] Univers 00:00:00 00:00:00 Ana Laura [facility] [id number] it y of [place] [id number] Frankie as RADHA?BLEA [id number] Wy margaret HOP[place] 044 [facility] 2021-08-17 2021-08-17 Outpatient R MOLLY TOMMIE [facility] [id number] Univers 09:00:00 09:00:00 ity [facility] 2021-08-13 2021-08-13 Outpatient R TOMMIE BARNES [facility] [id number] Univers 14:00:00 14:00:00 [facility] 2021-07-03 2021-07-03 Outpatient Duncan PIERRE [facility] [id number] Univers 10:15:00 10:15:00 [facility] 2021-06-30 2021-06-30 Kranthi Kevin 1.2.840.114 [id number] Univers 00:00:00 00:00:00 Management Melba Meyersy [id number] ity of [place] [id number] [place] [id number] [facility] 086 [place] 2021-06-25 2021-06-25 Outpatient Duncan AG [facility] [id number] Univers 10:00:00 10:00:00 ALBERTO [facility] 2021-04-09 2021-04-09 Outpatient Duncan PIERRE [facility] [id number] Univers 10:00:00 10:00:00 ROSSANA [facility] 2021-04-02 2021-04-02 Outpatient Duncan PIERRE [facility] [id number] Univers 10:15:00 10:15:00 ROSSANA [facility] 2021-03-19 2021-03-19 Outpatient Duncan PIERRE [facility] [id number] Univers 10:15:00 10:15:00 ROSSANA [facility] 2021-03-12 2021-03-12 Outpatient Duncan PIERRE [facility] [id number] Univers 09:15:00 09:15:00 ROSSANA [facility] 2021-03-04 2021-03-04 Outpatient Duncan PIERRE [facility] [id number] Univers 11:00:00 11:00:00 ROSSANA [facility] 2021-02-27 2021-02-27 Outpatient Duncan GEORGE [facility] [id number] Univers 11:30:00 11:30:00 SHAWNEE [facility] 2021-02-04 2021-02-04 Outpatient Duncan PIERRE [facility] [id number] Univers 11:00:00 11:00:00 ROSSANA [facility] 2021-01-07 2021-01-07 Outpatient Duncan PIERRE [facility] [id number] Univers 10:30:00 10:30:00 ROSSANA [facility] 2020-12-22 2020-12-22 Outpatient Duncan GRAHAM [facility] [id number] Univers 10:00:00 10:00:00 ROHIT [facility] 2020-12-19 2020-12-19 Outpatient R [facility] [id number] Univers 08:00:00 08:00:00 [facility] 2020-12-16 2020-12-16 Outpatient Duncan PIERRE [facility] [id number] Univers 09:00:00 09:00:00 ROSSANA [facility] 2020-12-12 2020-12-12 [facility] [id number] Univers 11:00:00 11:00:00 SHAWNEE [facility] 2020-12-10 2020-12-10 Outpatient Duncan PIERRE [facility] [id number] Univers 15:30:00 15:30:00 ROSSANA [facility] 2020-12-09 2020-12-09 Outpatient R [facility] [id number] Univers 08:00:00 08:00:00 [facility] 2020-10-09 2020-10-09 Outpatient Duncan WARNER [facility] [id number] Univers 11:30:00 11:30:00 ANA LAURA ity [facility] 2020-09-17 2020-09-17 Outpatient R [facility] [id number] Univers 10:00:00 10:00:00 haydee [facility] 2020-09-09 2020-09-09 Outpatient R IGNACIO [facility] [id number] Univers 10:30:00 10:30:00 ROSSANA hubbard [facility] 2020-07-15 2020-07-15 Outpatient Duncan PIERRE [facility] [id number] Univers 14:00:00 14:00:00 ROSSANA hubbard [facility] 2020-07-10 2020-07-10 Outpatient R NANNETTE [facility] [id number] Univers 11:45:00 11:45:00 WONDIFUL ity o f [facility] 2020-07-03 2020-07-03 Outpatient R NANNETTE [facility] [id number] Univers 13:45:00 13:45:00 WONDIFUL ity o f [facility] 2020-06-27 2020-06-27 Outpatient R NANNETTE [facility] [id number] Univers 16:00:00 16:00:00 WONDIFUL ity o f [facility] 2020-06-12 2020-06-12 Outpatient R NANNETTE [facility] [id number] Univers 11:00:00 11:00:00 WONDIFUL ity o f [facility] 2020-03-06 2020-03-06 Telephone [facility] 1.2.840.114 [id number] 00:00:00 00:00:00 Wondiful [facility] [id number] [place] [id number] Professio [id number] nal [address] 2020-03-04 2020-03-04 Telephone [facility] 1.2.840.114 [id number] 00:00:00 00:00:00 Wondiful A [place] [id number] [place] [id number] Professio [id number] nal 044 Building 2020-02-28 2020-02-28 Telephone [facility] 1.2.840.114 [id number] 00:00:00 00:00:00 [facility] [id number] [place] [id number] Professio [phone] nal 044 Office Building [facility] 2020-02-28 2020-02-28 Chang [facility] [id number] 00:00:00 00:00:00 [facility] [id number] [place] [id number] Professio [id number] nal [facility] Office [facility] 2020-02-05 2020-02-05 [facility] [id number] Univers 08:15:00 08:15:00 WONDIFUL ity o f [facility] 2020-01-29 2020-01-29 Telemedici [facility] 1.2.840.114 [id number] 07:08:00 10:19:10 ne Visit Wondiful A [place] [id number] [place] [id number] Professio [id number] nal [address] [place] [address] 2020-01-29 2020-01-29 [facility] [id number] Univers 08:15:00 08:15:00 WONDIFUL ity o f [facility] 2020-01-21 2020-01-21 Out[facility] [id number] Univers 12:00:00 12:00:00 ANA LAURA hubbard [facility] 2020-01-17 2020-01-17 [facility] [id number] Univers 09:00:00 09:00:00 PO hubbard [facility] 2020-01-14 2020-01-14 Outpatient [facility] [id number] Univers 12:00:00 12:00:00 ANA LAURA hubbard [facility] 2019-12-07 2019-12-07 Out[facility] [id number] Univers 09:00:00 09:00:00 SHAWNEE hubbard [facility] Results Test Description Test Time Test Comments Results Result Comments Source VAGINAL PATHOGENS DNA PANEL 2023-07-20 14:01:10 Test Item Value Reference Range Interpretation Comme nts CHRISTIANE SPECIES (test code NEGATIVE NEGATIVE = ) G. VAGINALIS (test code = POSITIVE NEGATIVE A ) T. VAGINALIS (test code = NEGATIVE NEGATIVE N ote: The BD Affirm VPIII Microbial ) Identification Testis a DNA probe test intended for us e in the detectionand identification of Christiane species, Gardnerellavagi nalis and Trichomonas vaginalis nucle ic acid. UNLESS OTHERWISE INDIC ATED, ALL TESTING PERFORMED AT [facility], [facility]. 58 JONES [place] [address] 78 4 PUBLIC HEALTH NUTRITIONIST: SETH ZAPATA M.D. [place] NUMBER [id number] [facility] [place]. [id number] LIPID [id number] 05:30:13 Test Item Value Reference Range Interpretation Comments CHOLESTEROL (test 256 MG/DL <200 H code = 2210) TRIGLYCERIDES (test 235 MG/DL <150 H code = 2232) HDL CHOLESTEROL (test 67 MG/DL >39 code = 2220) CALC LDL CHOL (test 151 MG/DL <100 H NOTE: C ALCULATED LDL code = 2237) IS BASED ON POPEYE-ELLISON METHOD WHICHINCLUDES ADJUSTABLE TRIGLYCERIDE:VL DL CHOLESTEROL RAT IO.THIS FACTOR VARIES B Y MEASURED TRIGLY CERIDE AND NON-HDLCHOL ESTEROL CONCENTRATIONS WITH INCREASED CALCU LATED LDL SEENIN HIGH ER TRIGLYCERIDE OR LOWER NON-HDL SPECIME NS. FOR MOREINFORMATION , SEE CLIENT ANNOUNCE MENT AT [email or web address] [email or web address] RATIO LDL/HDL 2.25 RATIO <3.22 (test code = 2238) COMPREHENSIVE METABOLIC [id number] 05:30:13 Test Item Value Reference Range Interpretation Comments GLUCOSE (test code = 2217) 293 MG/DL 70-99 H BUN (test code = 2208) 45 MG/DL 8-23 H CREATININE (test code = 2214) 3.45 MG/DL 0.60-1.30 H eGFR (2020 CKD-EPI) (test code 14 ML/MIN/1.73 >60 L = 23594) CALC BUN/CREAT (test code = 13 RATIO -2234) SODIUM (test code = 2231) 134 MEQ/L 133-146 POTASSIUM (test code = 2228) 3.9 MEQ/L 3.5-5.4 CHLORIDE (test code = 2215) 102 MEQ/L 95-107 CARBON DIOXIDE (test code = 21 MEQ/L -2205) CALCIUM (test code = 2208) 9.1 MG/DL 8.5-10.5 PROTEIN, TOTAL (test code = 6.1 G/DL 6.1-8.3 2228) ALBUMIN (test code = 2200) 3.7 G/DL 3.5-5.2 CALC GLOBULIN (test code = 2.4 G/DL 1.9-3.7 2239) CALC A/G RATIO (test code = 1.5 RATIO 1.0-2.6 2233) BILIRUBIN, TOTAL (test code = 0.2 MG/DL <=1.2 2206) ALKALINE PHOSPHATASE (test 112 U/L 40-142 code = 2203) AST (test code = 2217) 15 U/L 9-40 ALT (test code = 2218) 12 U/L 5-40 ALBUMIN/CREATININE RATIO, URINE, [id number] 05:11:17 Test Item Value Reference Range Interpretation Comments CREATININE, URINE, 84.5 MG/DL NOT ESTAB CONC. (test code = 2072) ALBUMIN, URINE, 437.2 MG/DL NOT ESTAB RANDOM (test code = 06850) CALC ALBUMIN/CREAT, 5174 MG/G <30 H Note: RND (test code = Albumin/Cre atinine 92877) ratio reference interval reflec ts ADA and NKF guideli richard. HEMOGLOBIN [id number] 03:21:55 Test Item Value Reference Range Interpretation Comments HEMOGLOBIN A1c (test 9.2 % 4.2-5.6 H AMERIC AN DIABETES code = 94526) ASSOCIATION IDELINES FOR HGB A1C: PREDIABETES/INC REASED RISK . . . . . . . 5.7 -6.4% DIAGNOSIS OF DI ABETES . . . . . . . . . >=6 .5% WITH CONFIRMATION OR APPROPRIATE SYMPTOMS NOTE: ASSAY MAY BE AFFECTED BY HEMOGLOBINOPATH IES (SICKLE CELL ANEMIA, S- C DISEASE, OTHERS) OR DEVONTE FICIALLY LOWERED BY DECR EASED RED CELL SURVIVAL ( HEMOLYTIC ANEMIAS, BLOOD LOSS, ETC.). CONSIDER ALTERN ATE TESTING OR LABORATORY C ONSULTATION. CULTURE, [id number] 16:15:00SPECIMEN NUMBER: [id number] CULTURE, URINE SPECIMEN NUMBER: [id number] SPECIMEN COMMENT: URINE SOURCE:URINE REPORT STATUS: FINAL ISOLATE NUMBER 1: ORGANISM: 07/24/2022 >100,000 CFU/ML GRAM NEGATIVE BA CILLI IDENTIFICATION: 07/25/2022 KLEBSIELLA PNEUMONIAE K. PNEUMONIAE AMOXICILLIN/CA RESISTANT >16/8AMPICILLIN RESISTANT >16CEFAZOLIN RESISTANT >16CEFTRIAXONE SENSITIVE <=1CIPROFLOXACIN SENSITIVE <=1LEVOFLOXACIN SENSITIVE <=2NITROFURANTOIN SENSITIVE <=32PIP/TAZOBAC RESISTANT >64TETRACYCLINE RESISTANT >8TOBRAMYCIN SENSITIVE <=4TRIMETH/SULFA SENSITIVE <=2/38 NOTE: NUMBERS DISPLAYED REPRESENT MINIMUM INHIBITORY CONCENTRATION (GADIEL) WHICH IS EXPRESSED IN MCG/ML. HEMOGLOBIN [id number] 07:01:50 Test Item Value Reference Range Interpretation Comments HEMOGLOBIN A1c (test 9.4 % 4.2-5.6 H AMERIC AN DIABETES code = 75879) ASSOCIATION IDELINES FOR HGB A1C: PREDIABETES/INC REASED RISK . . . . . . . 5.7 -6.4% DIAGNOSIS OF DI ABETES . . . . . . . . . >=6 .5% WITH CONFIRMATION OR APPROPRIATE SYMPTOMS NOTE: ASSAY MAY BE AFFECTED BY HEMOGLOBINOPATH IES (SICKLE CELL ANEMIA, S- C DISEASE, OTHERS) OR DEVONTE FICIALLY LOWERED BY DECR EASED RED CELL SURVIVAL ( HEMOLYTIC ANEMIAS, BLOOD LOSS, ETC.). CONSIDER ALTERN ATE TESTING OR LABORATORY C ONSULTATION. COMPREHENSIVE METABOLIC [id number] 06:55:10 Test Item Value Reference Range Interpretation Comments GLUCOSE (test code = 86 MG/DL 70-99 2216) BUN (test code = 59 MG/DL 8-23 H 2207) CREATININE (test 2.31 MG/DL 0.60-1.30 H code = 2214) eGFR (2020 CKD-EPI) 22 ML/MIN/1.73 >60 L (test code = 78240) CALC BUN/CREAT (test 26 RATIO 6-28 code = 2235) SODIUM (test code = 138 MEQ/L 940-307 2026) POTASSIUM (test code 5.5 MEQ/L 3.5-5.4 H = 2227) CHLORIDE (test code 104 MEQ/L 95-107 = 5) CARBON DIOXIDE (test 21 MEQ/L 19-31 code = 220) CALCIUM (test code = 9.7 MG/DL 8.5-10.5 2208) PROTEIN, TOTAL (test 7.2 G/DL 6.1-8.3 code = 222) ALBUMIN (test code = 4.0 G/DL 3.5-5.2 2200) CALC GLOBULIN (test 3.2 G/DL 1.9-3.7 code = 224) CALC A/G RATIO (test 1.3 RATIO 1.0-2.6 [...] code = 13 U/L 5-40 2218) LIPID [id number] 06:55:10 Test Item Value Reference Range Interpretation [...] MOREINFORMATION , SEE CLIENT ANNOUNCE MENT AT [email or web address] [email or web address] LDL/HDL 1.19 RATIO <3.22 (test code = 2238) ALBUMIN/CREATININE RATIO, URINE, [id number] 05:50:53 Test Item Value Reference Range Interpretation Comments CREATININE, URINE, 28.0 MG/DL NOT ESTAB CONC. (test code = 2072) ALBUMIN, URINE, 96.7 MG/DL NOT ESTAB RANDOM (test code = 74874) CALC 3454 MG/G <30 H Note: Albumin/ Creatinine ALBUMIN/CREAT, RND ratio ref erence interval (test code = [place] [address]) guidelines. UNL ESS OTHERWISE INDIC ATED, ALL TESTING PERFORM ED ATCLINICAL PATH [facility], I [address] [place] [address] LABORATORY DIRE CTOR: Waqas PATEL CLIA NUMBER [id number] CAP ACCREDITATION N O. [id number] COMPREHENSIVE METABOLIC [id number] 07:02:36 Test Item Value Reference Range Interpretation Comments GLUCOSE (test code = 122 MG/DL 70-99 H 2216) BUN (test code = 34 MG/DL 8-23 H 2207) CREATININE (test 2.26 MG/DL 0.60-1.30 H code = 2214) eGFR (2020 CKD-EPI) 23 ML/MIN/1.73 >60 L (test code = 93036) CALC BUN/CREAT (test 15 RATIO 6-28 code = 2235) SODIUM (test code = 137 MEQ/L 296-420 3992) POTASSIUM (test code 4.8 MEQ/L 3.5-5.4 = [...] 2204) AST (test code = 14 U/L 9-40 2217) ALT (test code = 9 U/L 2218) ALBUMIN/CREATININE RATIO, URINE, [id number] 04:52:48 Test Item Value Reference Range Interpretation Comments CREATININE, URINE, 44.4 MG/DL NOT ESTAB RANDOM (test code = 2072) ALBUMIN, URINE, 103.8 MG/DL NOT ESTAB RANDOM (test code = 85796) CALC 2338 MG/G <30 H Note: ALBUMIN/CREAT, RND Albumin/C reatinine ratio (test code = reference inter hugo 82497) reflects ADA an d NKF guidelines. UNL ESS OTHERWISE INDIC ATED, ALL TESTING PERFORM ED ATCL[facility]ICAL PATH [facility], I [address] [place] [address] LABORATORY DIRE CTOR: GIOVANI OBANDO M.D. CLIA NUMBER [id number] [place] [id number] HEMOGLOBIN [id number] 03:48:30 Test Item Value Reference Range Interpretation Comments HEMOGLOBIN A1c (test 12.2 % 4.2-5.6 H AMERIC AN DIABETES code = 48928) ASSOCIATION IDELINES FOR HGB A1C: PREDIABETES/INC REASED [...] LABORATORY C ONSULTATION. CBC W/AUTO DIFF WITH [id number] 02:43:48 Test Item Value Reference Range Interpretation [...] RBCS 0.00 K/UL 0.00-0.11 (test code = 12884) HEMOGLOBIN [id number] 10:41:06 Test Item Value Reference Range Interpretation Comments HEMOGLOBIN A1c (test 14.1 % 4.2-5.6 H AMERIC AN DIABETES code = 13123) ASSOCIATION IDELINES FOR HGB A1C: PREDIABETES/INC REASED [...] OTHERWIS E INDICATED, ALL TESTING PER FORMED [facility] [address] [place] [address] LABORATORY DIRE CTOR: Waqas PATEL. RADHAIA NUMBER [id number] CAP [place]CREDITATION N O. [id number] CBC W/AUTO DIFF WITH [id number] 10:18:54 Test Item Value Reference Range Interpretation [...] RBCS 0.00 K/UL 0.00-0.11 (test code = 48401) COMPREHENSIVE METABOLIC [id number] 03:55:19 Test Item Value Reference Range Interpretation Comments GLUCOSE (test code = 276 MG/DL 70-99 H 2216) BUN (test code = 47 MG/DL 8-23 H 2207) CREATININE (test 2.10 MG/DL 0.60-1.30 H code = 221) eGFR (2020 CKD-EPI) 25 ML/MIN/1.73 >60 L (test code = 50580) CALC BUN/CREAT (test 22 RATIO 6-28 code = 2235) SODIUM (test code = 130 MEQ/L 133-146 L 2230) POTASSIUM (test code 5.2 MEQ/L 3.5-5.4 = 2227) CHLORIDE (test code 96 MEQ/L 95-107 = 2214) CARBON DIOXIDE (test 22 MEQ/L 19-31 code = 220) CALCIUM (test code = 9.5 MG/DL 8.5-10.5 2208) PROTEIN, TOTAL (test 6.5 G/DL 6.1-8.3 code = 222) ALBUMIN (test code = 3.7 G/DL 3.5-5.2 [...] 148 U/L 40-142 H (test code = 220) AST (test code = 9 U/L 9-40 2217) ALT (test code = 10 U/L 5-40 2218) LIPID [id number] 03:55:19 Test Item Value Reference Range Interpretation [...] MOREINFORMATION , SEE CLIENT ANNOUNCE MENT AT [email or web address] [email or web address] RATIO LDL/HDL 1.09 RATIO <3.22 (test code = 2238) CT/NG, NAAT, [id number] 17:08:50 Test Item Value Reference Range Interpretation Comments GONORRHEA, NAAT NEGATIVE NEGATIVE IMPORTA NT NOTICE: SEE (test code = [place] [address]) [email or web address] Note: Assay methodology is nucleic acid amplification b y lead warehouse associate m ediated amplification ( TMA) utilizing the A ptima Combo 2 Assay. CHLAMYDIA, NAAT NEGATIVE NEGATIVE IMPORTA NT NOTICE: SEE (test code = [place] [address]) [email or web address] GlobalsUMerchant ViewKit Note: Assay methodology is nucleic acid amplification b y lead warehouse associate m ediated amplification ( TMA) utilizing the A ptima Combo 2 Assay. UNLESS OTHERWISE INDICATED, ALL TESTING PERFORMED [facility] [address] [place] [id number] [place] [address] DIRECTOR: GIOVANI BAL M.D. CLIA NUMBER [id number] CAP ACCREDITATION N O. [id number] VAGINAL PATHOGENS DNA [id number] 13:23:02 Test Item Value Reference Range Interpretation Comments CHRISTIANE SPECIES (test code = ) NEGATIVE NEGATIVE G. VAGINALIS (test code = ) NEGATIVE NEGATIVE T. VAGINALIS (test code = ) NEGATIVE NEGATIVE
[2023-07-25 21:28] LABS: Specific Gravity 1.011 (1.005-1.030); Urine Bacteria <20 /HPF (<20); Urine Bilirubin NEGATIVE (Negative); Urine Blood 3+ (OVER) (Negative); Urine Clarity Extremely Turbid (Clear); Urine Color Light-Yellow (Yellow); Urine Glucose 4+ (Negative); Urine Mucus Slight /HPF (None Seen); Urine Protein 3+ (Negative); Urine RBC >50 /HPF (None Seen); Urine Urobilinogen Normal (Normal); Urine WBC Clump Rare /HPF (None Seen)
[2023-07-25 21:30] LABS: Absolute Lymphocytes (CBC) 0.9 K/uL (0.7-4.9); Hematocrit 26.3 % (36.0-45.0); MCV 87.3 fL (80-100); MPV 6.6 fL (7.6-11.3); Platelets 350 thou/uL (152-406); RBC Red Blood Cell Count 3.02 M/uL (3.86-4.86)
[2023-07-25 21:48] LABS: Albumin 2.5 g/dL (3.4-5.0); Bilirubin Total 0.4 mg/dL (0.2-1.0); Magnesium 1.4 mg/dL (1.6-2.4); Potassium 4.8 mEq/L (3.5-5.1); Protein, Total 6.6 g/dL (6.4-8.2)
[2023-07-25 21:51] LABS: Troponin High Sensitivity 64.2 pg/mL (<58.9)
--- NOTE | 2023-07-25 22:28 | EDPHYS ---
Physician Documentation [facility] Name: Sola Mahoney Age: 68 yrs Sex: Female : 1955 Arrival Date: 07/25/2023 Time: 19:37 Bed 18 Private MD: ED Physician Irineo Trejo HPI: 07/26 03:29 This 68 yrs old Female presents to ER via EMS with complaints of General sb4 Weakness, High Blood Sugar, Urinary Problem. 03:29 Patient comes in with several complaints. She states that she has a bladder infection. sb4 She reports that she went to the restroom this morning and could not get off the toilet. She also states that her blood sugars been running high. She denies any chest pain, shortness of breath, nausea, vomiting. She is a poor historian. She does live alone and independent living apartment facility. Historical: - Allergies: 07/25 19:41 Benadryl; eh3 19:41 Darvocet-N 100; eh3 19:41 Demerol; eh3 - PMHx: 19:41 Anxiety; Bipolar disorder; depressive disorder; Diabetes - IDDM; High Cholesterol; eh3 Hypertensive disorder; low blood sugar; Schizophrenia; - PSHx: 19:41 Hemmroidectomy; hysterectomy; eh3 - Immunization history:: Adult Immunizations up to date. - Social history:: Smoking status: unknown. ROS: 07/26 03:29 Constitutional: Negative for fever, chills, and weight loss, sb4 : Positive for urinary symptoms, burning with urination, Neuro: Positive for weakness, All other systems are negative, Exam: 03:29 Constitutional: This is a well developed, well nourished patient who is awake, alert, sb4 and in no acute distress. Head/Face: Normocephalic, atraumatic. Eyes: Extra-ocular motions intact. Periorbital areas with no swelling, redness, or edema. Cardiovascular: Regular rate and rhythm with a normal S1 and S2. Respiratory: Lungs have equal breath sounds bilaterally, clear to auscultation and percussion. No rales, rhonchi or wheezes noted. No increased work of breathing, no retractions or nasal flaring. Abdomen/GI: Soft, non-tender, no distension. Skin: Warm, dry with normal turgor. Normal color with no rashes, no lesions, and no evidence of cellulitis. MS/ Extremity: Pulses equal, no cyanosis. Neurovascular intact. Full, normal range of motion. Neuro: Awake and alert, GCS 15, oriented to person, place, time, and situation. Motor strength 5/5 in all extremities. Sensory grossly intact. Vital Signs: 07/25 19:40 BP 145 / 65; Pulse 89; Resp 18; Temp 98.4(O); Pulse Ox 97% on R/A; Weight 88.9 kg; 3 Height 5 ft. 3 in. ; 20:00 BP 142 / 67; Pulse 89; Resp 18; Pulse Ox 98% on R/A; 3 21:00 BP 154 / 79; Pulse 86; Resp 18; Pulse Ox 98% on R/A; 3 07/26 01:00 BP 173 / 81; Pulse 86; Resp 18; cm10 07/25 19:40 Body Mass Index 34.72 (88.90 kg, 160.02 cm) [facility] MDM: 07/25 19:49 Patient medically screened. 4 07/26 03:29 Differential diagnosis: viral Infection, bacterial infection, URI, bronchitis, sb4 pneumonia UTI. Data reviewed: vital signs, nurses notes, EMS record, lab test result(s), EKG, radiologic studies, and as a result, I will admit patient. Consideration of Admission/Observation Patient was admitted/placed on observation. Management of patient was discussed with the following: Hospitalist: Shan INTERIANO. Care significantly affected by the following chronic conditions: Diabetes, Hypertension. Counseling: I had a detailed discussion with the patient and/or guardian regarding the historical points, exam findings, and any diagnostic results supporting the discharge/admit diagnosis, the presence of at least one elevated blood pressure reading (>120/80) during this emergency department visit, lab results, radiology results, the need for further work-up and treatment in the hospital. 07/25 20:06 Order name: CBC with Diff; Complete Time: 22:52 4 07/25 20:06 Order name: CMP; Complete Time: 22:10 4 07/25 20:06 Order name: Magnesium; Complete Time: 22:10 [facility] 07/25 20:06 Order name: UAM; Complete Time: 21:32 [facility] 07/25 20:06 Order name: Troponin High Sensitivity; Complete Time: 22:10 sb4 07/25 20:06 Order name: CPK; Complete Time: 22:10 sb4 07/25 20:11 Order name: Glucose, Ancillary Testing; Complete Time: 20:13 EDMS 07/25 21:33 Order name: Urine Culture EDID 07/25 21:33 Order name: Manual Differential; Complete Time: 22:52 EDMS 07/25 20:06 Order name: IV Saline Lock; Complete Time: 21:08 sb4 07/25 20:06 Order name: Labs collected and sent; Complete Time: 21:08 sb4 Administered Medications: 07/25 22:47 Drug: NS 0.9% IV 1000 ml IV at 1 bolus Per protocol; 1000 mL bolus Route: IV; Rate: 1 mb9 bolus; Site: right antecubital; 23:46 Follow up: Response: No adverse reaction; IV Status: Completed infusion mb9 Disposition Summary: 07/25/23 22:27 Hospitalization Ordered Notes: Hospitalization Status: Inpatient Admission sb4 Provider: Zack Read Location: Telemetry/[facility] (Inpatient) sb4 Condition: Fair sb4 Problem: new sb4 Symptoms: are unchanged sb4 Bed/Room Type: Standard sb4 Room Assignment: 407(07/26/23 00:07) mw Diagnosis - Rhabdomyolysis sb4 Forms: - Medication Reconciliation Form sb4 - SBAR form sb4 - Leadership Thank You Letter sb4 Addendum: 07/28/2023 12:29 Co-signature as Attending Physician, Irineo Trejo MD I reviewed the patient's care r n provided by the Advanced Practice Provider and agree with the diagnosis and treatment plan. Signatures: Dispatcher [facility] Mitzi Pal RN Irineo Matthew MD MD rn Hall, Erin, RN RN eh3 Melodie Rodriguez PA-C PA-C 4 Agustina Vanessa RN RN mb9 Corrections: (The following items were deleted from the chart) 07/26 00:07 07/25 22:27 sb4 mw
--- NOTE | 2023-07-25 22:28 | ER ---
Nurse's Notes [facility] Name: Sola Mahoney Age: 68 yrs Sex: Female : 1955 Arrival Date: 07/25/2023 Time: 19:37 Bed 18 Private MD: Diagnosis: Rhabdomyolysis Presentation: 07/25 19:40 Chief complaint: EMS states: toned out to independent living apartment, pt states she's eh3 been on the toilet all day and unable to stand up. Daughter she may have a UTI. Coronavirus screen: Vaccine status: Patient reports being unvaccinated. Ebola Screen: No symptoms or risks identified at this time. Risk Assessment: Do you want to hurt yourself or someone else? Patient reports no desire to harm self or others. Onset of symptoms was July 25, 2023. 19:40 Method Of Arrival: EMS: [facility] 19:40 Acuity: ULICES 3 [facility] 19:40 Initial Sepsis Screen: Does the patient meet any 2 criteria? No. Patient's initial [facility] sepsis screen is negative. Does the patient have a suspected source of infection? No. Patient's initial sepsis screen is negative. Care prior to arrival: Medication(s) given: Normal saline infusion, 150 mL IV initiated. 20 GA, in the right wrist, Glucose check: 334. Triage Assessment: 19:41 General: Appears in no apparent distress. uncomfortable, Behavior is calm, cooperative. eh3 Pain: Complains of pain in neck, right foot and left foot. Neuro: Level of Consciousness is awake, alert, obeys commands, Oriented to person, place, time, situation. Cardiovascular: Capillary refill < 3 seconds Patient's skin is warm and dry. Respiratory: Airway is patent Respiratory effort is even, unlabored, Respiratory pattern is regular, symmetrical. GI: Abdomen is round non-distended. Derm: Skin is pink, warm \T\ dry. Musculoskeletal: Circulation, motion, and sensation intact. Historical: - Allergies: 19:41 Benadryl; eh3 19:41 Darvocet-N 100; eh3 19:41 Demerol; eh3 - PMHx: 19:41 Anxiety; Bipolar disorder; depressive disorder; Diabetes - IDDM; High Cholesterol; eh3 Hypertensive disorder; low blood sugar; Schizophrenia; - PSHx: 19:41 Hemmroidectomy; hysterectomy; eh3 - Immunization history:: Adult Immunizations up to date. - Social history:: Smoking status: unknown. Screenin:40 [facility] ED Fall Risk Assessment (Adult) Score/Fall Risk Level 3 or more points = High eh3 Risk Oriented to surroundings, Maintained a safe environment, Educated pt \T\ family on fall prevention, incl call for assistance when getting out of bed, Assessed \T\ reinforced patient's understanding of fall precautions, Provided non-skid footwear, Hourly rounding (assess needs \T\ fall precautionary measures) done, Used ambulatory aids as needed (educated on \T\ assisted with). Abuse screen: Denies threats or abuse. Denies injuries from another. Nutritional screening: No deficits noted. Tuberculosis screening: No symptoms or risk factors identified. Assessment: 19:40 Reassessment: No changes from previously documented assessment. See triage assessment. eh3 20:00 Reassessment: Patient appears in no apparent distress at this time. Patient and/or 3 family updated on plan of care and expected duration. Pain level reassessed. Patient is alert, oriented x 3, equal unlabored respirations, skin warm/dry/pink. 21:00 Reassessment: Patient appears in no apparent distress at this time. Patient and/or 3 family updated on plan of care and expected duration. Pain level reassessed. Patient is alert, oriented x 3, equal unlabored respirations, skin warm/dry/pink. 22:00 Reassessment: No changes from previously documented assessment. Patient and/or family mb9 updated on plan of care and expected duration. Pain level reassessed. Patient is alert, oriented x 3, equal unlabored respirations, skin warm/dry/pink. 22:40 Reassessment: pt placed in gown, diaper changed, and pure wic placed. mb9 23:46 Reassessment: No changes from previously documented assessment. Patient and/or family mb9 updated on plan of care and expected duration. Pain level reassessed. Patient is alert, oriented x 3, equal unlabored respirations, skin warm/dry/pink. Vital Signs: 19:40 BP 145 / 65; Pulse 89; Resp 18; Temp 98.4(O); Pulse Ox 97% on R/A; Weight 88.9 kg; eh3 Height 5 ft. 3 in. ; 20:00 BP 142 / 67; Pulse 89; Resp 18; Pulse Ox 98% on R/A; 3 21:00 BP 154 / 79; Pulse 86; Resp 18; Pulse Ox 98% on R/A; 3 07/26 01:00 BP 173 / 81; Pulse 86; Resp 18; cm10 07/25 19:40 Body Mass Index 34.72 (88.90 kg, 160.02 cm) [facility] ED Course: 07/25 19:39 Patient arrived in ED. eh3 19:40 Arm band placed on. eh3 19:40 Patient has correct armband on for positive identification. Bed in low position. Call 3 light in reach. Side rails up X2. Provided Education on: Use of call ferrer. Client placed on continuous cardiac and pulse oximetry monitoring. NIBP monitoring applied. 19:41 Triage completed. eh3 19:49 Melodie Rodriguez PA-C is PHCP. sb4 19:49 Irineo Trejo MD is Attending Physician. sb4 20:10 Belle Kramer RN is Primary Nurse. 3 21:00 Report given to JOHN Avila. eh3 21:08 Inserted saline lock: 22 gauge in right antecubital area, using aseptic technique. oe Blood collected. 21:08 CPK Sent. oe 21:08 Troponin High Sensitivity Sent. oe 21:08 UAM Sent. oe 21:08 Magnesium Sent. oe 21:08 CBC with Diff Sent. oe 21:09 CMP Sent. oe 22:26 Zack Read MD is Hospitalizing Provider. sb4 22:56 No provider procedures requiring assistance completed. Patient admitted, IV remains in mb9 place. Administered Medications: 22:47 Drug: NS 0.9% IV 1000 ml IV at 1 bolus Per protocol; 1000 mL bolus Route: IV; Rate: 1 mb9 bolus; Site: right antecubital; 23:46 Follow up: Response: No adverse reaction; IV Status: Completed infusion mb9 Medication: 22:56 VIS not applicable for this client. mb9 Outcome: 22:27 Decision to Hospitalize by Provider. sb4 07/26 01:42 Admitted to Tele accompanied by tech, via stretcher, room 407, Report called to bijan Thomas RN Condition: good Instructed on the need for admit, 02:11 Patient left the ED. bp Signatures: Alfredo, Denny oe Danni, Jonnie, RN RN bp Belle Kramer, RN RN eh3 Melodie Rodriguez, SUSANNAH [email or web address] Agustina Vanessa, RN RN mb9 Елена Shipley RN RN cm10
[2023-07-25 22:47] LABS: Blood Morphology Comment NOT SEEN (NOT SEEN); Platelet Estimate ADEQ
[2023-07-25] MEDS ORDERED: NA CHLORIDE 0.9% 1,000 ML ONE (22:49)
--- NOTE | 2023-07-26 00:16 | P.HP ---
Certification for Inpatient Patient admitted to: Inpatient With expected LOS: >2 Midnights Patient will require the following post-hospital care: None Practitioner: I am a practitioner with admitting privileges, knowledge of patient current condition, hospital course, and medical plan of care. Services: Services provided to patient in accordance with Admission requirements found in Title 42 Section 412.3 of the Code of Federal Regulations <Shan Mead - Last Filed: 07/26/23 00:11> Patient History Date of Service: 07/26/23 Reason for admission: Rhabdomyolysis, CKD, NSTEMI History of Present Illness: 68-year-old female with history of diabetes mellitus type 2, hypertension, hyperlipidemia, anxiety/BPD/schizophrenia, CKD presents the emergency department for weakness. She reports that after sitting on a bedside commode at home around 5 AM on 07/25/2023 she was unable to get up and spent the entire day on the toilet. Eventually EMS was called and patient was transported to the emergency department evaluation. She was seen here and admitted on 02/07/2023 and subsequent discharge on 02/14/2023 for rhabdomyolysis, NSTEMI, ESRD, CHF and hyponatremia, at that time she did need dialysis, she has since had her dialysis catheter removed. She has been following outpatient with nephrology and most recent creatinine was 3.3 on 02/23/2023. She was evaluated here in the emergency department today her labs are significant for creatinine 3.54 GFR 13 glucose 255 CPK 2129 troponin 64.2 white blood cell count 13.2 hemoglobin 8.9. ED evaluation stented patient for weakness, rhabdomyolysis, CKD. - Past Medical/Surgical History Diabetic: Yes -: DM -: HTN -: HYPERLIPIDEMIA -: Schitzophrenia -: hypoglycemia -: bipolar disorder -: anxiety -: depressive disorder -: Chronic diastolic ingestive heart failure -: Hysterectomy -: Hemorrhoidectomy Psychosocial/ Personal History: Patient lives at home, alone. - Family History Family History: Reviewed- Non-Contributory - Social History Smoking Status: Never smoker Alcohol use: No CD- Drugs: No Caffeine use: Yes Place of Residence: Home <Shan Mead - Last Filed: 07/26/23 00:11> Date of Service: 07/26/23 <Zack Read - Last Filed: 07/26/23 19:38> Allergies propoxyphene HCl [From Darvon] Allergy (Intermediate, Verified 02/14/23 16:45) Hives codeine Allergy (Verified 02/14/23 16:45) Nausea/Vomiting diphenhydramine HCl [From Benadryl] Allergy (Verified 02/14/23 16:45) Hives Home Medications: Paliperidone [Paliperidone ER] 1 tab PO DAILY 02/04/23 Pravastatin Sodium 10 mg PO DAILY 02/04/23 Mupirocin Oint [Bactroban 2% Ointment*] 1 appl TOP BID tube 02/14/23 Docusate/Senna [Senokot-S*] 2 tab PO BEDTIME PRN 30 Days tab 02/22/23 Ferrous Sulfate [Ferrous Sulfate*] 325 mg PO DAILY 30 Days tab 02/22/23 Furosemide [Lasix*] 80 mg PO BIDL 30 Days tab 02/22/23 Glimepiride [Amaryl*] 4 mg PO BIDWM 30 Days tab 02/22/23 Guaif/Dm [Robitussin Dm*] 10 ml PO Q6H PRN 30 Days 02/22/23 Insulin Glargine,Hum.rec.anlog [Semglee] 10 unit SQ BEDTIME 30 Days ml 02/22/23 Iron/FA/Vit B-Com W/C [Hemocyte Plus*] 1 tab PO DAILY WITH BREAKFAST #30 tab 02/22/23 Lactulose [Cephulac*] 30 ml PO BID PRN 30 Days 02/22/23 Lidocaine 4% Patch [Lidoderm 5% Patch*] 1 patch TOP DAILY pat 02/22/23 Review of Systems 10-point ROS is otherwise unremarkable General: Weakness <Shan Mead Geoff - Last Filed: 07/26/23 00:11> Physical Examination - Physical Exam General: Alert, In no apparent distress, Oriented x3, Other (Speech rapid, pressured) HEENT: Atraumatic, PERRLA, Mucous membr. moist/pink, EOMI, Sclerae nonicteric Neck: Supple, 2+ carotid pulse no bruit, No LAD, Without JVD or thyroid abnormality Respiratory: Clear to auscultation bilaterally, Normal air movement Cardiovascular: Regular rate/rhythm, Normal S1 S2 Capillary refill: <2 Seconds Gastrointestinal: Normal bowel sounds, No tenderness Musculoskeletal: No tenderness Integumentary: No rashes Neurological: Normal speech, Normal strength at 5/5 x4 extr, Normal tone, Normal affect Lymphatics: No axilla or inguinal lymphadenopathy - Studies Laboratory Data (last 24 hrs) 07/25/23 07/25/23 21:04 21:04 WBC 13.20 H Hgb 8.9 L Hct 26.3 L Plt Count 350 Sodium 131 L Potassium 4.8 BUN 64 H Creatinine 3.54 H Glucose 255 H Magnesium 1.4 L Total Bilirubin 0.4 AST 48 H ALT 28 Alkaline Phosphatase 99 <Shan Mead - Last Filed: 07/26/23 00:11> - Studies Laboratory Data (last 24 hrs) 07/25/23 07/25/23 21:04 21:04 WBC 13.20 H Hgb 8.9 L Hct 26.3 L Plt Count 350 Sodium 131 L Potassium 4.8 BUN 64 H Creatinine 3.54 H Glucose 255 H Magnesium 1.4 L Total Bilirubin 0.4 AST 48 H ALT 28 Alkaline Phosphatase 99 <Zack Read - Last Filed: 07/26/23 19:38> Assessment and Plan - Plan Assessment: ESRD, rhabdomyolysis NSTEMI Chronic diastolic congestive heart failure Diabetes mellitus type 2 with hyperglycemia Anemia of chronic disease Hypertension Hyperlipidemia Anxiety/BPD/schizophrenia Plan: ESRD, rhabdomyolysis Previously required hemodialysis, has since had dialysis catheter removed. Creatinine not far from baseline currently although CPK moderately elevated. Continue gentle IV fluids, nephrology consult in place. Trend CPK. NSTEMI No chest pain, mildly elevated troponin, will trend. Given aspirin, statin. Echocardiogram performed on 02/08/2023 with normal EF, grossly normal. Chronic diastolic congestive heart failure Obtain continue on medications, does not appear grossly overloaded at this time. Diabetes mellitus type 2 with hyperglycemia ACHS Accu-Chek, sliding scale insulin. Anemia of chronic disease Transfuse to maintain hemoglobin greater than 7. Hypertension Hyperlipidemia Anxiety/BPD/schizophrenia Continue home medications. DVT PPX: Heparin subcu Code status: Full Discharge Plan: Home Plan to discharge in: 48 Hours - Advance Directives Does patient have a Living Will: No Does patient have a Durable POA for Healthcare: No - Code Status/Comfort Care Code Status Assessed: Yes (Full code) Critical Care: No Time Spent Managing Pts Care (In Minutes): 55 <Shan Mead - Last Filed: 07/26/23 00:11> Physician Review: Patient Assessed, Agree with Above Assessment and Plan <Zack Read - Last Filed: 07/26/23 19:38>
[2023-07-26] MEDS ORDERED: ONDANSETRON 4 MG/2 ML VIAL IV PRN (01:17)
[2023-07-26] MEDS ORDERED: ACETAMINOPHEN 500 MG TAB PO PRN (01:17)
[2023-07-26 02:36] VITALS: O2SAT 98
[2023-07-26] MEDS: NA CHLORIDE 0.9% 1,000 ML IV SCH ×2 (05:01→13:41)
[2023-07-26 06:25] LABS: Absolute Lymphocytes (CBC) 0.9 K/uL (0.7-4.9); Hematocrit 27.2 % (36.0-45.0); Lymphocytes % 8.3 % (15.3-44.8); MCV 88.2 fL (80-100); MPV 6.5 fL (7.6-11.3); Platelets 323 thou/uL (152-406); RBC Red Blood Cell Count 3.09 M/uL (3.86-4.86)
[2023-07-26 07:04] LABS: Albumin 2.2 g/dL (3.4-5.0); Bilirubin Total 0.4 mg/dL (0.2-1.0); Magnesium 1.4 mg/dL (1.6-2.4); Potassium 4.6 mEq/L (3.5-5.1); Thyroid Stimulating Hormone 0.889 uIU/mL (0.358-3.740)
[2023-07-26 07:07] LABS: Troponin High Sensitivity 64.7 pg/mL (<58.9)
[2023-07-26] MEDS ORDERED: INFLUENZA VACCINE (for 6+ mo) 0.5 ML DOSE IMVAC ONE (09:00)
[2023-07-26] MEDS: HEPARIN 5000 UNIT/ML 1 ML VIAL SQ SCH ×2 (09:02→22:36)
[2023-07-26] MEDS: INSULIN -REGULAR HUMAN 50 UNIT/0.5 ML ML SQ SCH ×4 (09:02→22:37)
[2023-07-26] MEDS: ASPIRIN EC 81 MG TAB PO SCH (09:03)
[2023-07-26] MEDS: carvediloL 6.25 MG TAB PO SCH ×2 (14:50→22:36)
--- NOTE | 2023-07-26 15:29 | CON ---
Date of Consultation: 07/26/2023 Reason For Consultation: Elevated BUN and creatinine, fluid management. 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 The patient was in her regular state of health, ca me to the hospital complaining from weakness and difficulty ambulating, found to have non-ST elevatio n HI. The patient admits that she has been taking ibuprofen for the last couple of months, 1 tablet daily. The patient upon arrival to the hospital found to have creatinine of 3.5. Her baseline creat inine around 2.5, last seen in the office. Back in January, her creatinine was 3.3 with GFR of 15. Past Medical History: Includes; 1.Hypertension. 2.Hyperlipidemia. 3.Diabetes complicated with neuropathy and nephropathy, chronic kidney disease stage 4/5 secondary t o diabetes nephropathy, hypertension nephrosclerosis. Normal size kidney, 11.6/12.2, proteinuric, no n-nephrotic. 4.CAD complicated with non-ST elevation HI, status post PTCA. Allergies: TO PROPOXYPHENE, CODEINE, DIPHENHYDRAMINE. Home Medications: Include Advil, paliperidone, pravastatin, Naprosyn, docusate, ferrous sulfate, [place], glimepiride. Family History: Positive for hypertension. Social History: Denied smoking, denied drinking, denied drugs abuse. Review of Systems: Head and Neck: No red eye. No ear pain. GI: No nausea. No vomiting. : No polyuria. No dysuria. No hematuria. 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 Respiratory: Has shortness of breath. Cardiovascular: No chest pain. Endocrine: No polydipsia. Skin: No rash. Neuro: Has neuropathy. Musculoskeletal: No joint pain. Physical Examination: Vital Signs: Blood pressure 168/93, pulse of 89. Chest: Faint rales on the base. Heart: S1, S2. Systolic murmur. Abdomen: Soft, nontender. Extremity: Trace edema. Neurologic: Alert. No focality. Pleasantly confused. Laboratory Data: Yesterday's creatinine 3.5, sodium 131. Today lab data; sodium 133, potassium 4.6, bicarb 22, BUN 58, creatinine 3.2, GFR of 15, calcium 8.5. Albumin 2.2. Corrected calcium is 9.7. Urinalysis positive for infection. Current Medications: The patient on include; 1.Heparin. 2.Aspirin. 3.Tylenol. 4.Zofran. 5.Normal saline. Assessment And Plan: 1.Chronic kidney disease, stage 5, stable on her baseline, secondary to diabetes nephropathy, normal volume, superimposed with nonsteroidal use, nonoliguric. No hyperkalemia or acidosis. I do not see the need to initiate any renal replacement therapy for the time being. We will monitor the patient closely. I agree with holding nonsteroidals and we will continue IV fluid and we will monitor. 2.Hypertension, not controlled. Continue IV fluid. I am going to go ahead and start the patient on carvedilol and we will follow up with Cardiology. Please avoid any YESICA inhibitor or ARB and we will follow up. 3.Anemia of chronic kidney disease. I am going to go ahead and send for anemia workup and we will f ollow up. 4.Non-ST elevation myocardial infarction as by Cardiology and primary. BENNIE/GINNA Voice ID: [id number] Report ID: [id number]
--- NOTE | 2023-07-26 19:20 | CON ---
Date of Consultation: 07/26/2023 Reason For Consultation: Elevated troponin. History Of Present Illness: 68-year-old female, with history of diabetes, hypertension, dyslipidemia , chronic kidney disease, sat on the commode around 5 a.m., was unable to get up off the toilet seat for many hours and then she was brought in. She was found to be in rhabdomyolysis and acute on chron ic renal failure and troponin was slightly elevated. Patient denies having any chest pain. No short ness of breath. Past Medical History: As outlined above in the HPI. Medications: Refer reconciliation sheet for detailed list. Allergies: PROPOXYPHENE, CODEINE, AND DIPHENHYDRAMINE. Family History: No premature coronary artery disease or cancer. Social History: Does not smoke or drink. Does not use any drugs. Review of Systems: All systems reviewed and they were negative except as mentioned in the HPI. Physical Examination: Vital Signs: Reviewed. Head and Neck: Pupils are equal, reactive to light. Intact eye movements. No JVD. No cervical lym phadenopathy. Neck is supple. Thyroid is not enlarged. Lungs: Clear to auscultation bilaterally. No rhonchi, wheezing, or crackles. No accessory muscle u se. Heart: Regular rate and rhythm. No extra sounds. Abdomen: Soft, nontender. Bowel sounds positive. No organomegaly. No masses or hernia. No rigidi ty or rebound. Extremities: No edema, clubbing, or cyanosis. Intact pulses. Skin: No rash. No nodule. Neurologic: Alert, awake, oriented x3. No acute focal deficits appreciated. Lymph Nodes: No cervical or axillary lymphadenopathy. Investigations: Troponin 64 and then went down to 60. CK is 1843. BUN 53, creatinine 3.2. Assessment And Recommendations: 1.Elevated troponin, likely due to rhabdomyolysis as CK is very high. Patient has multiple risk fac tors. We will plan for ischemia evaluation as an outpatient once this condition is completely stabil ized. Continue current management as per nephrology. 2.Chronic kidney disease, probably with mild worsening due to the rhabdo. Continue to monitor. She is on gentle IV hydration. 3.Dyslipidemia. Continue statin. SR/MODL Voice ID: [id number] Report ID: [id number]
[2023-07-26] MEDS ORDERED: ATORVASTATIN 40 MG TAB PO SCH (21:00)
[2023-07-27] MEDS ORDERED: BISACODYL E.C. 5 MG TAB PO ONE (01:16)
[2023-07-27] MEDS: NA CHLORIDE 0.9% 1,000 ML IV SCH (03:40)
[2023-07-27 04:24] LABS: Absolute Lymphocytes (CBC) 1.3 K/uL (0.7-4.9); Hematocrit 24.6 % (36.0-45.0); Lymphocytes % 13.7 % (15.3-44.8); MCV 87.1 fL (80-100); MPV 6.7 fL (7.6-11.3); Platelets 313 thou/uL (152-406); RBC Red Blood Cell Count 2.82 M/uL (3.86-4.86)
[2023-07-27 05:12] LABS: Albumin 1.9 g/dL (3.4-5.0); Bilirubin Total 0.3 mg/dL (0.2-1.0); Ferritin 92.8 ng/mL (8-388); Magnesium 1.3 mg/dL (1.6-2.4); Phosphorus 3.6 mg/dL (2.5-4.9); Potassium 4.3 mEq/L (3.5-5.1); Protein, Total 5.5 g/dL (6.4-8.2); Uric Acid 4.1 mg/dL (2.6-6.0)
[2023-07-27] MEDS: INSULIN -REGULAR HUMAN 50 UNIT/0.5 ML ML SQ SCH ×4 (07:30→21:00)
[2023-07-27] MEDS: HEPARIN 5000 UNIT/ML 1 ML VIAL SQ SCH ×2 (09:22→21:15)
[2023-07-27] MEDS: carvediloL 6.25 MG TAB PO SCH ×2 (09:22→21:15)
[2023-07-27] MEDS: CEFTRIAXONE 1,000 MG in NA CHLORIDE 0.9% 50 ML IVPB SCH (09:23)
[2023-07-27] MEDS: ASPIRIN EC 81 MG TAB PO SCH (09:23)
[2023-07-27] MEDS: SOD FERRIC GLUC COMPLX/SUCROSE 250 MG in NA CHLORIDE 0.9% 250 ML IV SCH (12:13)
--- NOTE | 2023-07-27 12:59 | P.PN ---
Subjective Date of Service: 07/27/23 Chief Complaint: Rhabdomyolysis, CKD, NSTEMI No acute events overnight. She reports that her symptoms have improved significantly. This morning, she reports that her weakness is slightly better. She reports myalgias and dysuria, both of which are improved. She denies any fevers, chills, chest pain, or shortness of breath. Review of Systems 10-point ROS is otherwise unremarkable Genitourinary: Dysuria Musculoskeletal: Other (myalgias - generalized) Physical Examination - Vital Signs Temperature: 97.4 F Blood Pressure: 138/61 Pulse: 72 Respirations: 14 Pulse Ox (%): 98 - Physical Exam General: Alert, In no apparent distress, Oriented x3 HEENT: Atraumatic, Mucous membr. moist/pink, Sclerae nonicteric Neck: JVD not distended Respiratory: Clear to auscultation bilaterally, Normal air movement Cardiovascular: No edema, Regular rate/rhythm, Normal S1 S2, No gallops, No rubs, No murmurs Gastrointestinal: Normal bowel sounds, Soft and benign, Non-distended, No tenderness, No rebound, No guarding Musculoskeletal: No clubbing Integumentary: No rashes Neurological: Normal speech, Normal affect Assessment And Plan - Plan # KDIGO Stage I Acute Kidney Injury on Chronic Kidney Disease Stage IV # Anemia of Chronic Kidney Disease - Previously required hemodialysis in January 2023, but has since been discontinued - Nephrology consulted and spoke with Dr. Walker - recommendations appreciated - Creatinine = 3.54 -> 3.25 -> 2.72 - Urinalysis = 4+ glucose, 3+ blood, 250 leukocyte esterase, >50 RBCs, 20-50 WBCs, 5-10 hyaline casts, 3+ protein - Monitor creatinine and urine output - If worsening, obtain renal ultrasound - Renally dose medications # Gram-Negative Urinary Tract Infection - Does not currently meet sepsis criteria - Continue ceftriaxone # Rhabdomyolysis # Dyslipidemia - Nephrology consulted and spoke with Dr. Walker - recommendations appreciated - CK = 2,129 -> 1,843 -> 712 - Hold home atorvastatin given rhabdomyolysis # Hypertensive Urgency # Suspect Demand Ischemia (Type II Non-ST Segment Elevation Myocardial Infarction) due to above - Evaluation thus far: - Blood pressure as high as 193/89 - EKG: without STEMI criteria - Serial troponin: 64.2 -> 64.7 -> 60.7 - Management plan: - Consult Cardiology - recommendations appreciated - Continue aspirin, carvedilol - Hold atorvastatin given rhabdomyolysis - Hold YESICA-inhibitor/ARB given rhabdomyolysis/HARMAN # Hyperglycemia in Type II Diabetes Mellitus - Correction scale insulin # Bipolar Disorder # Schizophrenia - Continue home paliperidone Zack Read M.D.
--- NOTE | 2023-07-27 13:21 | PN ---
Date of Progress Note: 07/27/2023 Subjective: The patient was admitted to the hospital with acute kidney injury. The patient's after hydration kidney function started improving. The patient feeling better. No shortness of breath. T he patient on room air. Physical Examination: Vital Signs: When I saw the patient; blood pressure 138/60, pulse of 72, afebrile. Chest: Faint rales on the left base. Heart: S1, S2. Systolic murmur. Abdomen: Soft, nontender. Extremity: Trace edema. Neurologic: Alert. No focality. Laboratory Data: Hemoglobin 8.6. Sodium 134, potassium 4.3, bicarb 22, BUN 50, creatinine 2.7 and t rending down, GFR of 18, calcium 8.1. Iron saturation is 9.7, ferritin 92. Urinalysis positive for infection. Current Medications: The patient on include; 1.Aspirin. 2.Ceftriaxone. 3.Atorvastatin. 4.Carvedilol. 5.Tylenol. 6.Bisacodyl. Assessment And Plan: 1.Acute kidney injury on advanced chronic kidney disease, recovered, currently normal volume. I am going to discontinue IV fluid. 2.Hypertension, controlled, optimal. Continue current treatment. 3.Urinary tract infection, culture growing gram-negative beau. We will follow up sensitivity. 4.Iron deficiency anemia. We will start the patient on IV iron and we will follow up. GILDARDO Voice ID: [id number] Report ID: [id number]
[2023-07-27] MEDS ORDERED: HYDRALAZINE HCL 20 MG/ML VIAL IV ONE (16:02)
--- NOTE | 2023-07-27 19:27 | PN ---
Date of Progress Note: 07/27/2023 Subjective: Seen by bedside. Doing well. No chest pain. Review of Systems: No chest pain, nausea, vomiting, diarrhea. No abdominal pain. No dysuria, polyuria, or urinary urge ncy. All other systems reviewed and they were negative. Physical Examination: Vital Signs: Reviewed. Head and Neck: Pupils are equal, reactive to light. Intact eye movements. No JVD. No cervical lym phadenopathy. Neck is supple. Thyroid is not enlarged. Lungs: Clear to auscultation bilaterally. No rhonchi, wheezing, or crackles. No accessory muscle u se. Heart: Regular rate and rhythm. No extra sounds. Abdomen: Soft, nontender. Bowel sounds positive. No organomegaly. No masses or hernia. No rigidi ty or rebound. Extremities: There is no edema, clubbing, or cyanosis. Intact pulses. Skin: No rash. Neurologic: Alert, awake, oriented x3. No acute focal deficits appreciated. Lymph Nodes: No cervical or axillary lymphadenopathy. Investigations: BUN is 50, creatinine 2.72. Assessment And Recommendations: 1.Elevated troponin, likely due to rhabdomyolysis. This patient has multiple risk factors and a str ess test is reasonable. Recommend obtaining Lexiscan nuclear stress test. 2.Rhabdomyolysis, improving. Continue current management. She is being monitored by Nephrology. 3.Diastolic heart failure, chronic. She appears to be euvolemic. 4.Hypertension. Blood pressure was controlled 138/61. Continue current management. /MODL Voice ID: [id number] Report ID: [id number]
[2023-07-28 06:29] LABS: Absolute Lymphocytes (CBC) 1.1 K/uL (0.7-4.9); Hematocrit 26.3 % (36.0-45.0); MPV 6.8 fL (7.6-11.3); Platelets 304 thou/uL (152-406); RBC Red Blood Cell Count 2.99 M/uL (3.86-4.86)
[2023-07-28 06:43] LABS: Albumin 1.8 g/dL (3.4-5.0); Bilirubin Total 0.2 mg/dL (0.2-1.0); Magnesium 1.4 mg/dL (1.6-2.4); Potassium 4.1 mEq/L (3.5-5.1); Protein, Total 5.3 g/dL (6.4-8.2)
[2023-07-28] MEDS ORDERED: REGADENOSON 0.4 MG/5 ML SYR IV ONE (07:20)
[2023-07-28] MEDS: PALIPERIDONE 1.5 MG PO SCH (09:00)
--- NOTE | 2023-07-28 09:31 | RAD REPORT ---
EXAM DESCRIPTION: NM - Rest Stress Cardiac Imaging - 07/28/2023 9:23 am CLINICAL HISTORY: ELEVATED TROPONIN COMPARISON: None. TECHNIQUE: The patient was administered 10.5 mCi of Tc 99m Sestamibi prior to resting SPECT imaging of the heart. The patient was then administered 30.7 mCi of Tc 99m Sestamibi following exercise or ph armacologic stress. Multiplanar SPECT images were reviewed. FINDINGS: Small area of diminished radiotracer uptake involving the inferior left ventricular myocar dium probably attenuation from the diaphragm. Small area diminished radiotracer uptake involving the lateral left ventricular myocardium on rest st ress sequences probably secondary to overlying soft tissue. Remainder of the left ventricular myocardium demonstrates normal radiotracer activity on stress and r est sequences The left ventricular ejection fraction equals 58% IMPRESSION: No evidence of stress-induced ischemia
[2023-07-28] MEDS: HEPARIN 5000 UNIT/ML 1 ML VIAL SQ SCH ×2 (09:52→20:35)
[2023-07-28] MEDS: CEFTRIAXONE 1,000 MG in NA CHLORIDE 0.9% 50 ML IVPB SCH (09:52)
[2023-07-28] MEDS: ASPIRIN EC 81 MG TAB PO SCH (09:53)
[2023-07-28] MEDS: carvediloL 6.25 MG TAB PO SCH ×2 (09:53→20:36)
[2023-07-28] MEDS: INSULIN -REGULAR HUMAN 50 UNIT/0.5 ML ML SQ SCH ×4 (09:53→20:40)
[2023-07-28 12:23] LABS: Potassium 4.6 mEq/L (3.5-5.1)
--- NOTE | 2023-07-28 19:08 | PN ---
Date of Progress Note: 07/28/2023 Subjective: Seen by bedside. Has no complaints. Review of Systems: No chest pain, shortness of breath, orthopnea, or cough. No nausea, vomiting, or diarrhea. All othe r systems were reviewed, they were negative. Physical Examination: Vital Signs: Reviewed. Head and Neck: Pupils are equal, reactive to light. Intact eye movements. No JVD. No cervical lym phadenopathy. Neck is supple. Thyroid is not enlarged. Lungs: Clear to auscultation bilaterally. No rhonchi, wheezing, or crackles. No accessory muscle u se. Heart: Regular rate and rhythm. No extra sounds. Abdomen: Soft, nontender. Bowel sounds positive. No organomegaly. No masses or hernia. No rigidi ty or rebound. Extremities: No edema, clubbing, or cyanosis. Intact pulses. Skin: No rash. No nodule. Neurologic: Alert, awake, oriented x3. No acute focal deficits appreciated. Investigations: Lexiscan nuclear stress test was negative. Assessment And Recommendations: 1.Elevated troponin due to rhabdomyolysis. Noncardiac. Stress test is negative. No further cardia c workup is needed. 2.Rhabdomyolysis with resultant acute renal failure, being managed by nephrology. 3.Diastolic heart failure. Appears to be euvolemic. Cardiology will sign off on the case. SR/MODL Voice ID: [id number] Report ID: [id number]
--- NOTE | 2023-07-28 19:11 | P.PN ---
Subjective Date of Service: 07/28/23 Chief Complaint: Rhabdomyolysis, CKD, NSTEMI No new events. She reports that her symptoms have nearly resolved. She has been working well with physical therapy. Her urine culture was positive for multidrug-resistant E. Coli. There are not many oral antibiotic options available, will discuss with Infectious Diseases. Review of Systems 10-point ROS is otherwise unremarkable General: Weakness (generalized) Physical Examination - Vital Signs Temperature: 96.9 F Blood Pressure: 162/74 Pulse: 67 Respirations: 18 Pulse Ox (%): 100 Assessment And Plan - Plan - Physical Exam General: Alert, In no apparent distress, Oriented x3 HEENT: Atraumatic, Mucous membr. moist/pink, Sclerae nonicteric Neck: JVD not distended Respiratory: Clear to auscultation bilaterally, Normal air movement Cardiovascular: No edema, Regular rate/rhythm, No murmurs Gastrointestinal: Normal bowel sounds, Soft, Non-distended, No tenderness Neurological: Normal speech, Normal affect # KDIGO Stage I Acute Kidney Injury on Chronic Kidney Disease Stage IV # Anemia of Chronic Kidney Disease - Previously required hemodialysis in January 2023, but has since been discontinued - Nephrology consulted and spoke with Dr. Walker - recommendations appreciated - Creatinine = 3.54 -> 3.25 -> 2.72 -> 2.84 - Urinalysis = 4+ glucose, 3+ blood, 250 leukocyte esterase, >50 RBCs, 20-50 WBCs, 5-10 hyaline casts, 3+ protein - Monitor creatinine and urine output - If worsening, obtain renal ultrasound - Renally dose medications # Multi-Drug Resistant Escherichia Coli Urinary Tract Infection - Does not currently meet sepsis criteria - Continue ceftriaxone - Not many PO options available. Sulfamethoxazole-trimethoprim not a viable option given renal disease - Consulted Infectious Diseases - recommendations appreciated # Rhabdomyolysis # Dyslipidemia - Nephrology consulted and spoke with Dr. Walker - recommendations appreciated - CK = 2,129 -> 1,843 -> 712 -> 333 - Hold home atorvastatin given rhabdomyolysis # Hypertensive Urgency # Suspect Demand Ischemia (Type II Non-ST Segment Elevation Myocardial Infarction) due to above - Evaluation thus far: - Blood pressure as high as 193/89 - EKG: without STEMI criteria - Serial troponin: 64.2 -> 64.7 -> 60.7 - Management plan: - Consult Cardiology - recommendations appreciated - Continue aspirin, carvedilol - Hold atorvastatin given rhabdomyolysis - Hold YESICA-inhibitor/ARB given rhabdomyolysis/HARMAN # Hyperglycemia in Type II Diabetes Mellitus - Correction scale insulin # Bipolar Disorder # Schizophrenia - Continue home paliperidone Zack Read M.D.
--- NOTE | 2023-07-29 01:57 | PN ---
Date of Progress Note: 07/28/2023 Chief Complaint: Chronic kidney disease, prerenal azotemia, rhabdomyolysis, acute kidney injury on c hronic kidney disease stage 4. The patient has prerenal azotemia, nonoliguric urine output. Serum c reatinine level on arrival to the hospital was up to 3.54. CK level was elevated today, creatinine i s 2.84. There is some improvement of renal function, urinalysis although show positive blood, positi ve red blood cells, and elevated wbc's. The patient had microscopic hematuria and leukocyturia. The patient has proteinuria and hyaline cast formation was also identified during this admission. The p atient denies complaints. Patient is feeling better. Denies chest pain, palpitation, syncope. Physical Examination: Lungs: Diminished breath sounds at bases. Heart: S1, S2. Abdomen: Soft, benign. Extremities: Slight edema. Impression And Plan: 1.Acute on chronic kidney injury. Continue IV fluids for rhabdomyolysis and prerenal azotemia. 2.Urinary tract infection. Patient has microscopic hematuria and leukocyturia. The patient will co ntinue antibiotics. The patient does not have currently criteria for urosepsis. She denies flank pa in. Denies kidney stones. The patient is not a candidate for Bactrim due to acute on chronic kidney injury. 3.Rhabdomyolysis. CK level is gradually improving from 2128, and then it was 184, and today 333. Monitor phosphorus level and calcium level. The patient is off YESICA inhibitor due to rhabdomyolysis a nd acute kidney injury. 4.Hypertensive urgency. Advance blood pressure medication. Patient may need IV hydralazine for blo od pressure control. 5.Non-ST elevation myocardial infarction, suspected demand ischemia; likely there is some element of cardiorenal syndrome. Wean off IV fluids and monitor CK level. EB/MODL Voice ID: [id number] Report ID: [id number]
[2023-07-29 02:53] VITALS: BMI 34.5
[2023-07-29 06:40] LABS: Absolute Lymphocytes (CBC) 1.1 K/uL (0.7-4.9); Hematocrit 26.2 % (36.0-45.0); Lymphocytes % 13.3 % (15.3-44.8); MCV 88.5 fL (80-100); MPV 6.7 fL (7.6-11.3); Platelets 329 thou/uL (152-406); RBC Red Blood Cell Count 2.96 M/uL (3.86-4.86)
[2023-07-29 07:01] LABS: Albumin 1.8 g/dL (3.4-5.0); Bilirubin Total 0.1 mg/dL (0.2-1.0); Magnesium 1.6 mg/dL (1.6-2.4); Phosphorus 4.8 mg/dL (2.5-4.9); Potassium 4.3 mEq/L (3.5-5.1); Protein, Total 5.5 g/dL (6.4-8.2)
--- NOTE | 2023-07-29 07:29 | ECHO ---
HEIGHT: 5 ft 3 in WEIGHT: 195 lb 0 oz DATE OF STUDY: 07/28/[address]: Isaiah Caceres 2-DIMENSIONAL: YES M.MODE: YES DOPPLER: YES COLOR FLOW: YES TDS: PORTABLE: YES DEFINITY: BUBBLE STUDY: DIAGNOSIS: ELEVATED TROPONIN CARDIAC HISTORY: CATHERIZATION: NO SURGERY: NO PROSTHETIC VALVE: NO PACEMAKER: NO MEASUREMENTS (cm) DIASTOLIC (NORMALS) SYSTOLIC (NORMALS) IVSd 1.1 (0.6-1.2) LA Diam 3.2 (1.9-4.0) LVEF 64% LVIDd 3.5 (3.5-5.7) LVIDs 2.3 (2.0-3.5) %FS 34% LVPWd 1.1 (0.6-1.2) Ao Diam 2.5 (2.0-3.7) 2 DIMENSIONAL ASSESSMENT: RIGHT ATRIUM: NORMAL LEFT ATRIUM: NORMAL RIGHT VENTRICLE: NORMAL LEFT VENTRICLE: NORMAL TRICUSPID VALVE: NORMAL MITRAL VALVE: NORMAL PULMONIC VALVE: NORMAL AORTIC VALVE: NORMAL PERICARDIAL EFFUSION: NONE AORTIC ROOT: NORMAL LEFT VENTRICULAR WALL MOTION: NORMAL DOPPLER/COLOR FLOW: NORMAL COMMENTS: 1. NORMAL LEFT VENTRICULAR EJECTION FRACTION 60-65% 2. NORMAL WALL MOTION TECHNOLOGIST: MICHAEL HAMILTON
[2023-07-29] MEDS: PALIPERIDONE 1.5 MG PO SCH (08:24)
--- NOTE | 2023-07-29 08:24 | TREADPHA ---
DX: ELEVATED TROPONIN Date of Study: 07/28/2023 Ht: 5' 3 " Wt: 195 lb 0 oz Consulting Physician: MIALGROS MEDICATIONS: TYLENOL, ASPIRIN, COREG, HEPARIN, NOVOLIN-R, ZOFRAN HISTORY: DIABETES MELLITUS, HYPERTENSION PHYSICIAL EXAMINATION: RESTING B.P.: 127/80 RESTING H.R.: 68 RESTING EKG: NORMAL SINUS RHYTHM WITH PREMATURE ATRIAL COMPLEXES PROTOCOL: PHARMACOLOGIC EXERCISE TIME: 3:30 B.P. AT [place] STRESS: 119/58 IMPRESSION: LEXISCAN STRESS TEST PERFORMED. CARDIOLITE INJECTED PER PROTOCOL. SEE NUCLEAR MEDICINE REPORT. PREMATURE ATRIAL COMPLEXES NOTED BEFORE AND DURING PROCEDURE. NO SUPRAVENTRICULAR TACHYCARDIA, VENTRICULAR TACHYCARDIA. NO SHORTNESS OF BREATH OR CHEST PAIN NOTED. NO ELECTROCARDIOGRAM CHANGES OF ISCHEMIA WITH LEXISCAN.
[2023-07-29] MEDS: INSULIN -REGULAR HUMAN 50 UNIT/0.5 ML ML SQ SCH ×4 (08:26→20:49)
[2023-07-29] MEDS: ASPIRIN EC 81 MG TAB PO SCH (08:26)
[2023-07-29] MEDS: CEFTRIAXONE 1,000 MG in NA CHLORIDE 0.9% 50 ML IVPB SCH (08:26)
[2023-07-29] MEDS: HEPARIN 5000 UNIT/ML 1 ML VIAL SQ SCH ×2 (08:27→20:48)
[2023-07-29] MEDS: carvediloL 6.25 MG TAB PO SCH ×2 (08:47→20:48)
--- NOTE | 2023-07-29 13:22 | P.PN ---
Subjective Date of Service: 07/29/23 Chief Complaint: Rhabdomyolysis, CKD, NSTEMI Subjective: No new changes Physical Examination - Vital Signs Temperature: 96.8 F Blood Pressure: 119/62 Pulse: 76 Respirations: 16 Pulse Ox (%): 100 - Physical Exam General: Other (chronically ill-appearing) HEENT: Atraumatic, Normocephalic Neck: Supple Respiratory: Other (symmetric chest expansion) Cardiovascular: No rubs, No murmurs Gastrointestinal: Soft and benign, No rebound, No guarding Musculoskeletal: No clubbing Integumentary: No warmth Neurological: Normal tone Urinary: Other (no bladder distention) External genitalia: Deferred Rectal: Deferred - Studies Microbiology Data (last 24 hrs): 07/25/23 21:04 Clean Catch Urine [place] Count - Final >100,000 CFU/ML. 07/25/23 21:04 Clean Catch Urine - Final Escherichia Coli Gram Neg Eric Assessment And Plan - Plan 1. Acute on chronic kidney injury. Continue IV/PO hydration. 2. MDRO e coli UT. Abx per ID service. 3. Rhabdomyolysis. Hydration as above. 4. Accelerated hypertension. BP meds adjusted. 5. Non-ST elevation myocardial infarction, suspected demand ischemia. Per other services. Physician Review: Patient Assessed, Agree with Above Assessment and Plan
--- NOTE | 2023-07-29 16:41 | PN ---
Subjective: The patient is lying in bed. No new acute event. Chart reviewed. Objective: Vital Signs: Reviewed. Lungs: Basal crackles. Heart: S1, S2. Regular. Abdomen: Soft, nontender. Bowel sounds present. Extremity: No edema. Laboratory Data: Shows WBC 8.8, hemoglobin 8.9, platelets 229. BUN 60, creatinine 3.3. Urine cultu res are growing E coli. Patient is currently on Rocephin, E coli infection, rhabdomyolysis, dyslipid emia, diabetes mellitus, and neuropathy. Urine cultures growing E coli more than 100,000, sensitive to Rocephin . Urosepsis with E coli, GFR of 14 total treatment of 7 days. We w ill follow the patient closely. NF/MODL Voice ID: [id number] Report ID: [id number]
--- NOTE | 2023-07-29 19:15 | P.PN ---
Subjective Date of Service: 07/29/23 Chief Complaint: Rhabdomyolysis, CKD, NSTEMI No new events. She reports significant improvement in her symptoms. There are not many oral antibiotic options available - spoke with Dr. Morgan, who recommends that she completed her antibiotic course with IV ceftriaxone. Review of Systems 10-point ROS is otherwise unremarkable Genitourinary: Dysuria (improved) Physical Examination - Vital Signs Temperature: 97.7 F Blood Pressure: 145/64 Pulse: 74 Respirations: 16 Pulse Ox (%): 100 - Studies Microbiology Data (last 24 hrs): 07/25/23 21:04 Clean Catch Urine [place] Count - Final >100,000 CFU/ML. 07/25/23 21:04 Clean Catch Urine - Final Escherichia Coli Gram Neg Eric Assessment And Plan - Plan - Physical Exam General: Alert, In no apparent distress, Oriented x3 HEENT: Atraumatic, Mucous membr. moist/pink, Sclerae nonicteric Neck: JVD not distended Respiratory: Clear to auscultation bilaterally, Normal air movement Cardiovascular: No edema, Regular rate/rhythm, No murmurs Gastrointestinal: Normal bowel sounds, Soft, Non-distended, No tenderness Neurological: Normal speech, Normal affect # KDIGO Stage I Acute Kidney Injury on Chronic Kidney Disease Stage IV # Anemia of Chronic Kidney Disease - Previously required hemodialysis in January 2023, but has since been discontinued - Nephrology consulted - recommendations appreciated - Creatinine = 3.54 -> 3.25 -> 2.72 -> 2.84 -> 3.31 - Urinalysis = 4+ glucose, 3+ blood, 250 leukocyte esterase, >50 RBCs, 20-50 WBCs, 5-10 hyaline casts, 3+ protein - Monitor creatinine and urine output - If worsening, obtain renal ultrasound - Renally dose medications # Multi-Drug Resistant Escherichia Coli Urinary Tract Infection - Does not currently meet sepsis criteria - Continue ceftriaxone - day 3 of 7 - Not many PO options available. Sulfamethoxazole-trimethoprim not a viable option given renal disease - Consulted Infectious Disease and spoke with Dr. Morgan - recommendations appreciated # Rhabdomyolysis # Dyslipidemia - Nephrology consulted - recommendations appreciated - CK = 2,129 -> 1,843 -> 712 -> 333 -> 300 - Hold home atorvastatin given rhabdomyolysis # Hypertensive Urgency # Suspect Demand Ischemia (Type II Non-ST Segment Elevation Myocardial Infarction) due to above - Evaluation thus far: - Blood pressure as high as 193/89 - EKG: without STEMI criteria - Serial troponin: 64.2 -> 64.7 -> 60.7 - Management plan: - Consult Cardiology - recommendations appreciated - Continue aspirin, carvedilol - Hold atorvastatin given rhabdomyolysis - Hold YESICA-inhibitor/ARB given rhabdomyolysis/HARMAN # Hyperglycemia in Type II Diabetes Mellitus - Correction scale insulin # Bipolar Disorder # Schizophrenia - Continue home paliperidone Zack Read M.D.
--- NOTE | 2023-07-29 22:58 | RAD REPORT ---
EXAM DESCRIPTION: US - Renal Ultrasound-Complete - 07/29/2023 7:51 pm CLINICAL HISTORY: shelly COMPARISON: Renal Ultrasound-Complete dated 02/09/2023; Stone Protocol dated 02/03/2023; Pelvis Complet e dated 02/04/2023 TECHNIQUE: Sonographic grayscale and color flow images of the kidneys and bladder obtained. FINDINGS: Both kidneys are normal in size and shape. Diffuse cortical mild hyperechogenicity. The right kidney measures 12.0 cm in length. No hydronephrosis, focal mass or perinephric fluid. Inci dentally noted lower pole 1 cm anechoic cyst. Limited evaluation given poor penetration and over shadowing bowel. The left kidney measures 11.6 cm in length. No hydronephrosis, or perinephric fluid. Ovoid hypoechoic 2.0 x 1.9 x 1.6 centimeter lesio n at the lower pole, not well characterized. No echogenic calculi. The urinary bladder is without gross abnormality seen. 4.6 cm ovoid cystic lesion just superior to th e bladder, may relate to left adnexal cyst noted on prior pelvic ultrasound and CT. IMPRESSION: Diffuse cortical mild hyperechogenicity of both kidneys, suggestive of medical renal dis ease. Ovoid left lower renal pole 2.0 cm hypoechoic focus, not well characterized, and is therefore indeter minate. Short-term follow-up ultrasound versus additional evaluation by renal mass protocol CT if the patient's renal functions allow, would be recommended.
[2023-07-30 08:11] LABS: Albumin 2.1 g/dL (3.4-5.0); Magnesium 1.6 mg/dL (1.6-2.4); Phosphorus 4.7 mg/dL (2.5-4.9); Potassium 4.3 mEq/L (3.5-5.1)
[2023-07-30] MEDS: PALIPERIDONE 1.5 MG PO SCH (09:00)
[2023-07-30] MEDS: CEFTRIAXONE 1,000 MG in NA CHLORIDE 0.9% 50 ML IVPB SCH (09:27)
[2023-07-30] MEDS: ASPIRIN EC 81 MG TAB PO SCH (09:28)
[2023-07-30] MEDS: HEPARIN 5000 UNIT/ML 1 ML VIAL SQ SCH (09:28)
[2023-07-30] MEDS: carvediloL 6.25 MG TAB PO SCH (09:28)
[2023-07-30] MEDS: INSULIN -REGULAR HUMAN 50 UNIT/0.5 ML ML SQ SCH ×3 (09:29→16:30)
[2023-07-30] MEDS: SOD FERRIC GLUC COMPLX/SUCROSE 250 MG in NA CHLORIDE 0.9% 250 ML IV SCH (12:06)
--- NOTE | 2023-07-30 14:03 | P.PN ---
Subjective Date of Service: 07/30/23 Chief Complaint: Rhabdomyolysis, CKD, NSTEMI No new events. Her symptoms have nearly subsided. She continues to do well with PT. Her creatinine continues to remain elevated this morning. Appreciate Nephrology recommendations. Review of Systems 10-point ROS is otherwise unremarkable Physical Examination - Vital Signs Temperature: 96.9 F Blood Pressure: 156/77 Pulse: 77 Respirations: 18 Pulse Ox (%): 100 Assessment And Plan - Plan - Physical Exam General: Alert, In no apparent distress, Oriented x3 HEENT: Atraumatic, Mucous membr. moist/pink, Sclerae nonicteric Neck: JVD not distended Respiratory: Clear to auscultation bilaterally, Normal air movement Cardiovascular: No edema, Regular rate/rhythm, No murmurs Gastrointestinal: Normal bowel sounds, Soft, Non-distended, No tenderness Neurological: Normal speech, Normal affect # KDIGO Stage I Acute Kidney Injury on Chronic Kidney Disease Stage IV # Anemia of Chronic Kidney Disease - Previously required hemodialysis in January 2023, but has since been discontinued - Nephrology consulted - recommendations appreciated - Creatinine = 3.54 -> 3.25 -> 2.72 -> 2.84 -> 3.31 -> 3.33 - Urinalysis = 4+ glucose, 3+ blood, 250 leukocyte esterase, >50 RBCs, 20-50 WBCs, 5-10 hyaline casts, 3+ protein - Renal ultrasound = "diffuse cortical mild hyperechogenicity of both kidneys, suggestive of medical renal disease." - Monitor creatinine and urine output - Renally dose medications # 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 Sulfamethoxazole-trimethoprim not a viable option given renal disease - Consulted Infectious Disease and spoke with Dr. Morgan - recommendations appreciated # Rhabdomyolysis # Dyslipidemia - Nephrology consulted - recommendations appreciated - CK = 2,129 -> 1,843 -> 712 -> 333 -> 300 - Hold home atorvastatin given rhabdomyolysis # Hypertensive Urgency # Suspect Demand Ischemia (Type II Non-ST Segment Elevation Myocardial Infarction) due to above - Evaluation thus far: - Blood pressure as high as 193/89 - EKG: without STEMI criteria - Serial troponin: 64.2 -> 64.7 -> 60.7 - Management plan: - Consult Cardiology - recommendations appreciated - Continue aspirin, carvedilol - Hold atorvastatin given rhabdomyolysis - Hold YESICA-inhibitor/ARB given rhabdomyolysis/HARMAN # Hyperglycemia in Type II Diabetes Mellitus - Correction scale insulin # Bipolar Disorder # Schizophrenia - Continue home paliperidone Zack Read M.D.
[2023-07-30 22:39] LABS: Vitamin D 1,25-Dihydroxy Total <8 pg/mL (18-72); Vitamin D,1,25-OH2, D2 <8 pg/mL
[2023-07-31] MEDS: HEPARIN 5000 UNIT/ML 1 ML VIAL SQ SCH ×3 (00:11→20:36)
[2023-07-31] MEDS: INSULIN -REGULAR HUMAN 50 UNIT/0.5 ML ML SQ SCH ×6 (00:11→20:36)
[2023-07-31] MEDS: carvediloL 6.25 MG TAB PO SCH ×3 (00:17→20:36)
--- NOTE | 2023-07-31 02:51 | PN ---
Chief Complaint: Chronic kidney disease, prerenal azotemia, rhabdomyolysis, cardiorenal syndrome. Axel ashby was found to have acute kidney injury on chronic kidney disease history of non-ST-e levation myocardial infarction. Review of Systems: Denies chest pain, palpitation. Physical Examination: Lungs: Clear to auscultation bilaterally. Heart: . Abdomen: Soft, benign. Extremities: No edema. Impression And Plan: 1.Acute on chronic kidney injury. Continue IV fluids and p.o. hydration discussed with the patient. 2.Urinary tract infection with E coli. Antibiotics as per ID service. 3.Rhabdomyolysis. Continue mild hydration. 4.Accelerated hypertension. Blood pressure medication adjusted. 5.Fmx-XT-zbutnadnb myocardial infarction, suspected demand ischemia. Continue per Cardiology recomm endation. EMMY/GINNA Voice ID: [id number] Report ID: [id number]
[2023-07-31 06:27] LABS: Albumin 1.9 g/dL (3.4-5.0); Magnesium 1.6 mg/dL (1.6-2.4); Phosphorus 5.7 mg/dL (2.5-4.9); Potassium 4.4 mEq/L (3.5-5.1)
[2023-07-31] MEDS: PALIPERIDONE 1.5 MG PO SCH (09:00)
[2023-07-31] MEDS: CEFTRIAXONE 1,000 MG in NA CHLORIDE 0.9% 50 ML IVPB SCH (09:25)
[2023-07-31] MEDS: ASPIRIN EC 81 MG TAB PO SCH (09:27)
--- NOTE | 2023-07-31 11:30 | P.PN ---
Subjective Date of Service: 07/31/23 Chief Complaint: Rhabdomyolysis, CKD, NSTEMI No new events. She reports that she is doing well. Discussed with Dr. Morgan - since she would not be an ideal PICC line candidate due to her advanced renal disease and the potential for requiring a line for HD at a later time, he recommends completing her IV antibiotic course in the hospital. Final dose is due on 08/02/2023. Anticipate discharge following completion of antibiotic course. Review of Systems 10-point ROS is otherwise unremarkable Physical Examination - Vital Signs Temperature: 97 F Blood Pressure: 142/69 Pulse: 74 Respirations: 18 Pulse Ox (%): 99 Assessment And Plan - Plan - Physical Exam General: Alert, In no apparent distress, Oriented x3 HEENT: Atraumatic, Mucous membr. moist/pink, Sclerae nonicteric Neck: JVD not distended Respiratory: Clear to auscultation bilaterally, Normal air movement Cardiovascular: No edema, Regular rate/rhythm, No murmurs Gastrointestinal: Normal bowel sounds, Soft, Non-distended, No tenderness Neurological: Normal speech, Normal affect # KDIGO Stage I Acute Kidney Injury on Chronic Kidney Disease Stage IV # Anemia of Chronic Kidney Disease - Previously required hemodialysis in January 2023, but has since been discontinued - Nephrology consulted - recommendations appreciated - Creatinine = 3.54 -> 3.25 -> 2.72 -> 2.84 -> 3.31 -> 3.33 -> 3.28 - Urinalysis = 4+ glucose, 3+ blood, 250 leukocyte esterase, >50 RBCs, 20-50 WBCs, 5-10 hyaline casts, 3+ protein - Renal ultrasound = "diffuse cortical mild hyperechogenicity of both kidneys, suggestive of medical renal disease." - Monitor creatinine and urine output - Renally dose medications # 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 Sulfamethoxazole-trimethoprim not a viable option given renal disease - Consulted Infectious Disease and spoke with Dr. Morgan - Recommends completing IV antibiotics as an inpatient given that she is not an ideal candidate for a PICC line - Continue ceftriaxone - day 5 of 7 # Rhabdomyolysis # Dyslipidemia - Nephrology consulted - recommendations appreciated - CK = 2,129 -> 1,843 -> 712 -> 333 -> 300 - Hold home atorvastatin given rhabdomyolysis # Hypertensive Urgency # Suspect Demand Ischemia (Type II Non-ST Segment Elevation Myocardial Infarction) due to above - Evaluation thus far: - Blood pressure as high as 193/89 - EKG: without STEMI criteria - Serial troponin: 64.2 -> 64.7 -> 60.7 - Management plan: - Consult Cardiology - recommendations appreciated - Continue aspirin, carvedilol - Hold atorvastatin given rhabdomyolysis - Hold YESICA-inhibitor/ARB given rhabdomyolysis/HARMAN # Hyperglycemia in Type II Diabetes Mellitus - Correction scale insulin # Bipolar Disorder # Schizophrenia - Continue home paliperidone Zack Read M.D.
--- NOTE | 2023-07-31 23:54 | PN ---
Date of Progress Note: 07/31/2023 Chief Complaint: Chronic kidney disease with prerenal azotemia, rhabdomyolysis, cardiorenal syndrome . The patient was found to have acute kidney injury on chronic kidney disease. She was found to hav e kne-PY-sgcngxhin myocardial infarction. Review of Systems: Denies chest pain, palpitation, syncope. Denies nausea, vomiting. Physical Examination: Lungs: Clear to auscultation bilaterally. Heart: S1, S2. No pericardial friction rub. Abdomen: Soft, benign, obese, nontender. Extremities: No edema. Impression And Plan: 1.Acute on chronic kidney injury. Continue IV fluids and p.o. hydration. Plan was discussed with [facility]. 2.Urinary tract infection with Escherichia coli. Antibiotics per Infectious Disease. 3.Rhabdomyolysis. Patient completed IV fluids. 4.Non-ST elevation myocardial infarction, suspected demand ischemia. Continue per Cardiology recomm endation. EMMY/MODL Voice ID: [id number] Report ID: [id number]
--- NOTE | 2023-08-01 05:26 | P.PN ---
Date of Service: 08/01/23 Subjective: Patient is doing well with no new complaints. Clinical symptoms are stable. Physical Exam: Vitals: reviewed GEN: Alert, oriented, NAD CV: Regular rate & rhythm, no edema Pulm: Nonlabored respiraitons, clear bilaterally ABD: Soft, nontender, nondistended MSK: No joint tenderness Integumentary: No rashes Neuro: Normal speech, normal affect Problem List: HARMAN on CKD4 Anemia of Chronic Kidney Disease MDR UTI, Escherichia Coli Rhabdomyolysis Dyslipidemia Hypertensive Urgency NSTEMI DM2 with hyperglycemia Bipolar Disorder Schizophrenia PLAN 1. Continue with IV antibiotics 2. Continue monitoring H&H 3. Monitor renal function 4. Strict blood pressure and blood sugar control 5. Continue with antipsychotics 6. GI DVT prophylaxis Anticipate discharge in a.m. once antibiotics completed.
[2023-08-01 06:16] LABS: Absolute Lymphocytes (CBC) 1.7 K/uL (0.7-4.9); Lymphocytes % 21.5 % (15.3-44.8); MCV 88.2 fL (80-100); MPV 6.8 fL (7.6-11.3); Platelets 278 thou/uL (152-406)
[2023-08-01 06:32] LABS: Magnesium 1.6 mg/dL (1.6-2.4); Potassium 4.3 mEq/L (3.5-5.1)
[2023-08-01] MEDS: INSULIN -REGULAR HUMAN 50 UNIT/0.5 ML ML SQ SCH ×4 (07:30→21:00)
[2023-08-01] MEDS: HEPARIN 5000 UNIT/ML 1 ML VIAL SQ SCH (08:03)
[2023-08-01] MEDS: carvediloL 6.25 MG TAB PO SCH ×2 (08:03→21:17)
[2023-08-01] MEDS: ASPIRIN EC 81 MG TAB PO SCH (08:03)
[2023-08-01] MEDS: CEFTRIAXONE 1,000 MG in NA CHLORIDE 0.9% 50 ML IVPB SCH (08:04)
--- NOTE | 2023-08-01 08:29 | P.PN ---
Subjective Date of Service: 08/01/23 Chief Complaint: Rhabdomyolysis, CKD, NSTEMI Subjective: No new changes, No C/O voiced Patient seen and examined in room. Sitting in chair, in no apparent distress, breathing comfortably on room air. She denies any new or worsening complaints. No acute events reported overnight. Review of Systems Unremarkable Physical Examination - Vital Signs Temperature: 97.0 F Blood Pressure: 135/67 Pulse: 73 Respirations: 16 Pulse Ox (%): 99 - Physical Exam General: Alert, In no apparent distress, Oriented x3 HEENT: Atraumatic, Normocephalic, Mucous membr. moist/pink Neck: Supple Respiratory: Clear to auscultation bilaterally, Normal air movement (on room air) Cardiovascular: No edema, Regular rate/rhythm Gastrointestinal: Normal bowel sounds, Soft and benign, Non-distended Integumentary: No rashes Neurological: Normal speech, Normal affect - Studies Laboratory Data - Reviewed Microbiology Data (last 24 hrs): - Reviewed Imagings Data: - Renal ultrasound 07/29: "FINDINGS: Both kidneys are normal in size and shape. Diffuse cortical mild hyperechogenicity. The right kidney measures 12.0 cm in length. No hydronephrosis, focal mass or perinephric fluid. Incidentally noted lower pole 1 cm anechoic cyst. Limited evaluation given poor penetration and over shadowing bowel. The left kidney measures 11.6 cm in length. No hydronephrosis, or perinephric fluid. Ovoid hypoechoic 2.0 x 1.9 x 1.6 centimeter lesion at the lower pole, not well characterized. No echogenic calculi. The urinary bladder is without gross abnormality seen. 4.6 cm ovoid cystic lesion just superior to the bladder, may relate to left adnexal cyst noted on prior pelvic ultrasound and CT." Medications List Reviewed: Yes Assessment And Plan - Plan Problem List Urinary Tract Infection Diabetes Mellitus type II HARMAN on CKD Anemia of Chronic Disease Rhabdomyolysis Dyslipidemia Hypertension Bipolar Disorder Schizophrenia Urinary Tract Infection - Urine culture 07/25: Escherichia coli , multi-drug resistant - On Rocephin (started 07/27) - HARMAN on CKD - Leukocytosis resolved. Afebrile - Renal ultrasound 07/29: "Both kidneys are normal in size and shape. Diffuse cortical mild hyperechogenicity. The right kidney measures 12.0 cm in length. No hydronephrosis, focal mass or perinephric fluid. Incidentally noted lower pole 1 cm anechoic cyst. No echogenic calculi. The urinary bladder is without gross abnormality seen. 4.6 cm ovoid cystic lesion just superior to the bladder, may relate to left adnexal cyst noted on prior pelvic ultrasound and CT." - Blood cutures 07/27: No growth to date Rhabdomyolysis CKD - Nephrology on case Recommendations - UTI with MDR E.coli: Continue Rocephin for 7 days (07/27-08/02). Currently on day 6 of 7. - renally dose medications - supportive care and nutritional supplementation as needed - Follow up with PCP as outpatient in 1-2 weeks Case discussed with Malik Major Physician Review: Patient Assessed, Agree with Above Assessment and Plan
[2023-08-01] MEDS: PALIPERIDONE 1.5 MG PO SCH (09:00)
--- NOTE | 2023-08-01 23:37 | PN ---
Date of Progress Note: 08/01/2023 Chief Complaint: Chronic kidney disease with prerenal azotemia, worsening of the renal function. Wilbur easton has cardiorenal syndrome. She was found to have acute kidney injury on chronic kidney disease. She was found to have sma-SS-ocwsejpwi myocardial infarction. Review of Systems: Denies palpitation, syncope. Denies nausea vomiting. Physical Examination: Lungs: Clear to auscultation bilaterally. Heart: S1, S2. No pericardial friction rub. Abdomen: Soft, benign, obese, nontender. Extremities: No edema. Impression And Plan: 1.Acute on chronic kidney injury. IV fluids with gentle hydration were started. Hold IV fluids and re-evaluate renal function. 2.Urinary tract infection with Escherichia coli. Antibiotics per Infectious Disease. 3.Rhabdomyolysis. Patient completed IV fluids. 4.Vcn-VG-odxmypipa myocardial infarction. Suspect demand ischemia. Continue per Cardiology recomme ndation. EMMY/GINNA Voice ID: [id number] Report ID: [id number]
[2023-08-02] MEDS: INSULIN -REGULAR HUMAN 50 UNIT/0.5 ML ML SQ SCH ×2 (07:30→11:30)
[2023-08-02] MEDS: carvediloL 6.25 MG TAB PO SCH (08:00)
[2023-08-02] MEDS: ASPIRIN EC 81 MG TAB PO SCH (08:00)
[2023-08-02] MEDS: CEFTRIAXONE 1,000 MG in NA CHLORIDE 0.9% 50 ML IVPB SCH (08:01)
[2023-08-02] MEDS: SOD FERRIC GLUC COMPLX/SUCROSE 250 MG in NA CHLORIDE 0.9% 250 ML IV SCH (08:33)
--- NOTE | 2023-08-02 09:29 | P.PN ---
Date of Service: 08/02/23 Chief Complaint: Rhabdomyolysis, CKD, NSTEMI Subjective: Improving. Patient denies any new or worsening complaints. No acute events reported overnight. On day 7 of antibiotic therapy. Physical Examination Temp Pulse Resp BP Pulse Ox 96.7 F L 66 17 140/68 98 08/02/23 04:00 08/02/23 08:00 08/02/23 04:00 08/02/23 08:00 08/02/23 04:00 General: Alert, In no apparent distress, Oriented x3 HEENT: Atraumatic, Normocephalic, Mucous membr. moist/pink Neck: Supple Respiratory: Clear to auscultation bilaterally, Normal air movement (on room air) Cardiovascular: No edema, Regular rate/rhythm Gastrointestinal: Normal bowel sounds, Soft and benign, Non-distended Integumentary: No rashes Neurological: Normal speech, Normal affect - Studies Laboratory Data - Reviewed Microbiology Data - Reviewed Imagings Data: - Renal ultrasound 07/29: "FINDINGS: Both kidneys are normal in size and shape. Diffuse cortical mild hyperechogenicity. The right kidney measures 12.0 cm in length. No hydronephrosis, focal mass or perinephric fluid. Incidentally noted lower pole 1 cm anechoic cyst. Limited evaluation given poor penetration and over shadowing bowel. The left kidney measures 11.6 cm in length. No hydronephrosis, or perinephric fluid. Ovoid hypoechoic 2.0 x 1.9 x 1.6 centimeter lesion at the lower pole, not well characterized. No echogenic calculi. The urinary bladder is without gross abnormality seen. 4.6 cm ovoid cystic lesion just superior to the bladder, may relate to left adnexal cyst noted on prior pelvic ultrasound and CT." Medications List Reviewed: Yes Assessment And Plan Problem List Urinary Tract Infection Diabetes Mellitus type II HARMAN on CKD Anemia of Chronic Disease Rhabdomyolysis Dyslipidemia Hypertension Bipolar Disorder Schizophrenia Urinary Tract Infection - Urine culture 07/25: Escherichia coli , multi-drug resistant - On Rocephin (started 07/27) - HARMAN on CKD - Leukocytosis resolved. Afebrile - Renal ultrasound 07/29: "Both kidneys are normal in size and shape. Diffuse cortical mild hyperechogenicity. The right kidney measures 12.0 cm in length. No hydronephrosis, focal mass or perinephric fluid. Incidentally noted lower pole 1 cm anechoic cyst. No echogenic calculi. The urinary bladder is without gross abnormality seen. 4.6 cm ovoid cystic lesion just superior to the bladder, may relate to left adnexal cyst noted on prior pelvic ultrasound and CT." - Blood cutures 07/27: No growth to date Rhabdomyolysis CKD - Nephrology on case Recommendations - UTI with MDR E.coli: Continue Rocephin for 7 days (07/27-08/02). Currently on day 7 of 7. Discontinue after today's dose. Continue to monitor for worsening signs/symptoms of infection. - Renally dose medications - supportive care and nutritional supplementation as needed - Follow up with PCP as outpatient in 1-2 weeks Case discussed with Malik Major
[2023-08-02 16:56] VITALS: BP 161/69; TEMP 98.2
--- NOTE | 2023-08-02 21:03 | P.DS ---
Discharge Date: 08/02/23 Disposition: ROUTINE DISCHARGE Discharge Condition: GOOD Reason for Admission: Rhabdomyolysis, CKD, NSTEMI Brief History of Present Illness: Patient is a 68-year-old female came to the hospital with acute renal failure with multidrug-resistant urinary tract infection. Patient was started on IV antibiotics. Patient was admitted to the hospital for further evaluation. Hospital Course: Patient has done well during hospitalization. Patient completed her 7 dose of IV antibiotics this morning. Patient should be stable for discharge per infectious disease recommendations. Patient will follow-up with PCP in 1 to 2 weeks. Vital Signs/Physical Exam: Temp Pulse Resp BP Pulse Ox 98.2 F 76 18 161/69 H 96 08/02/23 16:00 08/02/23 16:00 08/02/23 16:00 08/02/23 16:00 08/02/23 16:00 General: Alert, In no apparent distress, Oriented x3 Laboratory Data at Discharge: WBC 7.70 thou/uL (4.3-10.9) 08/01/23 05:36 Hgb 7.7 g/dL (12.0-15.0) L 08/01/23 05:36 Hct 22.0 % (36.0-45.0) L 08/01/23 05:36 Plt Count 278 thou/uL (152-406) 08/01/23 05:36 Sodium 133 mEq/L (136-145) L 08/01/23 05:36 Potassium 4.3 mEq/L (3.5-5.1) 08/01/23 05:36 BUN 66 mg/dL (7-18) H 08/01/23 05:36 Creatinine 3.36 mg/dL (0.55-1.02) H 08/01/23 05:36 Glucose 240 mg/dL (74-106) H 08/01/23 05:36 Uric Acid 4.1 mg/dL (2.6-6.0) 07/27/23 03:59 Phosphorus 5.7 mg/dL (2.5-4.9) H 07/31/23 05:40 Magnesium 1.6 mg/dL (1.6-2.4) 08/01/23 05:36 Total Bilirubin 0.1 mg/dL (0.2-1.0) L 07/29/23 06:17 AST 17 U/L (15-37) 07/29/23 06:17 ALT 27 U/L (13-56) 07/29/23 06:17 Alkaline Phosphatase 160 U/L (45-117) H D 07/29/23 06:17 Triglycerides 151 mg/dL (<150) H 07/26/23 06:12 Cholesterol 198 mg/dL (<200) 07/26/23 06:12 HDL Cholesterol 63 mg/dL (40-60) H 07/26/23 06:12 Cholesterol/HDL Ratio 3.14 07/26/23 06:12 Home Medications: Paliperidone [Paliperidone ER] 1 tab PO DAILY 02/04/23 Pravastatin Sodium 10 mg PO DAILY 02/04/23 Mupirocin Oint [Bactroban 2% Ointment*] 1 appl TOP BID tube 02/14/23 Docusate/Senna [Senokot-S*] 2 tab PO BEDTIME PRN 30 Days tab 02/22/23 Ferrous Sulfate [Ferrous Sulfate*] 325 mg PO DAILY 30 Days tab 02/22/23 Furosemide [Lasix*] 80 mg PO BIDL 30 Days tab 02/22/23 Guaif/Dm [Robitussin Dm*] 10 ml PO Q6H PRN 30 Days 02/22/23 Insulin Glargine,Hum.rec.anlog [Semglee] 10 unit SQ BEDTIME 30 Days ml 02/22/23 Iron/FA/Vit B-Com W/C [Hemocyte Plus*] 1 tab PO DAILY WITH BREAKFAST #30 tab 02/22/23 Lactulose [Cephulac*] 30 ml PO BID PRN 30 Days 02/22/23 Lidocaine 4% Patch [Lidoderm 5% Patch*] 1 patch TOP DAILY pat 02/22/23 Physician Discharge Instructions: -DC IV and DC home -Follow-up with PCP in 1 to 2 weeks -Please call Dr. Hilliard at [phone] if any questions regarding hospital stay -Please call nursing station at [phone] if any nursing or medication questions -Return to the emergency room if symptoms worsen Diet: Regular Activity: Fall precautions Followup: Unknown,U [Primary Care Provider] -
== END 2023-08-02 19:00 | disposition home health service (06) | DRG 557 ==
LOC: ER 19:37 → 4TH 07-26 00:17
PROVIDERS: ADMIT Internal Medicine; ATTEND Hospitalist
DX: M62.82 Rhabdomyolysis (principal); I21.A1 Myocardial infarction type 2; N17.9 Acute kidney failure, unspecified; N39.0 Urinary tract infection, site not specified; I50.32 Chronic diastolic (congestive) heart failure; N18.4 Chronic kidney disease, stage 4 (severe); I13.0 Hypertensive heart and chronic kidney disease with heart failure and stage 1 through stage 4 chronic kidney disease, or unspecified chronic kidney disease; E11.22 Type 2 diabetes mellitus with diabetic chronic kidney disease; E11.65 Type 2 diabetes mellitus with hyperglycemia; E11.40 Type 2 diabetes mellitus with diabetic neuropathy, unspecified; D63.1 Anemia in chronic kidney disease; D50.9 Iron deficiency anemia, unspecified; F41.9 Anxiety disorder, unspecified; F31.9 Bipolar disorder, unspecified; F20.9 Schizophrenia, unspecified; I16.0 Hypertensive urgency; E78.00 Pure hypercholesterolemia, unspecified; I25.10 Atherosclerotic heart disease of native coronary artery without angina pectoris; B96.20 Unspecified Escherichia coli [E. coli] as the cause of diseases classified elsewhere; R31.29 Other microscopic hematuria; Z88.5 Allergy status to narcotic agent; Z88.8 Allergy status to other drugs, medicaments and biological substances; Z60.2 Problems related to living alone; Z79.4 Long term (current) use of insulin; Z79.899 Other long term (current) drug therapy; Z90.710 Acquired absence of both cervix and uterus
CPT/HCPCS: 36415; 76770; 78452; 80048; 80053; 80061; 80069; 81001; 82550; 82607; 82652; 82728; 82947; 83540; 83605; 83735; 83970; 84439; 84443; 84466; 84484; 84550; 85025; 85044; 87040; 87077; 87086; 87088; 87186; 90471; 93017; 93306; 96360; 97110; 97116; 97161; 97530; 99285; A9500; J0360; J0696; J1644; J1815; J2785; J2916; J7030; J7050; Q2035